=== PATIENT | female | born 1960 | race Caucasian/White ===

== ENCOUNTER 2019-07-10 15:26 | Emergency (ER) | payer MEDICARE, SELFPAY ==
--- NOTE | ~2019-07-10 | XR_ITS ---
EXAMINATION: XR hip RT 2V w AP pelvis DATE: 07/10/2019 15:40 INDICATION: Right hip pain. Fall. TECHNIQUE: An anteroposterior view of the pelvis and 3 views of right hip were obtained. COMPARISON: Pelvis and right hip radiographs 06/18/2019 FINDINGS: There are fractures of right parasymphyseal pubis and superior pubic ramus. There is an old healed subcapital fracture of left femoral neck with fixation with 3 screws. There is a mixed lytic and sclerotic pattern in the intertrochanteric region of proximal right femur without change. There i s mild bilateral hip osteoarthritis. There is levoscoliosis of lumbar spine. IMPRESSION: 1. Acute fractures of right superior pubic ramus and right parasymphyseal pubis. 2. Unchanged mixed lytic and slight pattern in the intertrochanteric region of proximal right femur, likely a subacute or chronic fracture. Reviewed, dictated and finalized at location B. [employer] SAL[employer] IMPRESSION: 1. Acute fractures of right superior pubic ramus and right parasymphyseal pubis . 2. Unchanged mixed lytic and slight pattern in the intertrochanteric region of proximal right femur, likely a subacute or chronic fracture.
[2019-07-10 14:03] VITALS: BP 118/72; PULSE 73; RESP 18; TEMP 36.8; O2SAT 100
[2019-07-10 14:17] LABS: Basophils Absolute Auto 0.1 K/mm3 (0.0-0.1); Basophils Percent Auto 0.8 % (0.2-1.2); Eosinophils Percent Auto 0.3 % (0-4.4); Hematocrit 35.9 % (37.0-47.0); Hemoglobin 10.8 g/dL (12.0-15.0); Immature Granulocyte Absolute 0.01 K/mm3 (0.00-0.031); Immature Granulocyte Percent A 0.2 % (0-0.5); Lymphocytes Absolute Auto 2.53 K/mm3 (0.9-3.2); Lymphocytes Percent Auto 41.8 % (18.3-44.2); Mean Corpuscular HGB Conc 30.1 g/dl (32-36); Mean Corpuscular Volume 76.4 fl (80-100); Mean Platelet Volume 9.8 fl (7.4-10.4); Monocytes Absolute Auto 0.4 K/mm3 (0.1-0.6); Monocytes Percent Auto 6.1 % (2.6-8.5); Neutrophils Absolute Auto 3.1 K/mm3 (1.3-6.7); Neutrophils Percent Auto 50.8 % (45.5-73.1); Platelet Count Result 651 k/mm3 (150-375); White Blood Count 6.1 K/mm3 (4.5-10.0)
[2019-07-10 14:28] LABS: Alanine Aminotransferase 17 U/L (4-35); Albumin Level 3.3 g/dL (3.5-5.1); Alkaline Phosphatase 122 U/L (38-126); Aspartate Amino Transferase 33 U/L (14-36); Bilirubin,Total 0.2 mg/dL (0.2-1.3); Blood Urea Nitrogen 12 mg/dL (7-17); Calcium 8.6 mg/dL (8.4-10.2); Carbon Dioxide 25 mmol/L (22-30); Chloride 102 mmol/L (98-107); Estimated CRCL calculation 61 ml/min; Estimated Glomerular Filt Rate > 60; Glucose 109 mg/dL (65-105); Lipase 145 U/L (23-300); Potassium 3.7 mmol/L (3.4-5.0); Sodium 137 mmol/L (137-145)
--- NOTE | 2019-07-10 15:09 | ED.GENADULT ---
HPI - General Adult General Chief complaint: Extremity Injury, Lower Stated complaint: R hip pain Source: patient Mode of arrival: ambulatory Limitations: no limitations History of Present Illness HPI narrative: The pt is a 58 y/o female who presents to the ED with c/o rt hip pain that began 3 days ago. The pt states that she was getting up to go to the bathroom on Wednesday when she lost balance and fell. She was here a couple of weeks ago with a broken hip and believes she reinjured it during the fall. The pt has been having trouble walking but is not supposed to be bearing weight since her last visit. She has a PMHx of bipolar disorder. complaint: Hip pain Onset (ago): day(s) (3) Location: right (hip) Associated symptoms: denies other symptoms Related Data Home Medications Medication Instructions Recorded Confirmed divalproex [Depakote] 500 mg PO Q12H 06/18/19 06/18/19 escitalopram oxalate [Lexapro] 20 mg PO DAILY 06/18/19 06/18/19 Allergies Allergy/AdvReac Type Severity Reaction Status Date / Time No Known Allergies Allergy Verified 06/18/19 13:02 Review of Systems Review of Systems: All systems reviewed & are unremarkable except as noted in HPI and below Musculoskeletal: Musculoskeletal: Reports arthralgias (rt hip pain) PMFSH Past Medical History Medical History (Updated 07/10/19 @ 16:55 by Jordy Beebe MD) Anxiety Bipolar disorder Borderline personality disorder Cellulitis of left lower leg Chronic back pain Depression ETOH abuse GERD (gastroesophageal reflux disease) Gingival bleeding Hip fracture Microcytic anemia Severe protein-calorie malnutrition Ulcer of left lower leg Vitamin D deficiency Surgical History Surgical History (Updated 06/18/19 @ 15:00 by DOMINGUEZ Rodriguez) H/O breast augmentation Hx of tonsillectomy Family History Family History (Updated 02/28/16 @ 23:19 by DOCTOR UNKNOWN) Mother Family history of diabetes mellitus in first degree relative Family history of malignant neoplasm of brain Sibling Family history of diabetes mellitus in first degree relative Family history of malignant neoplasm Father Family history of malignant neoplasm of bone Other Cerebrovascular accident Diabetes mellitus Family history of alcoholism Family history of mental disorder Hypertension Social History Social History (Updated 06/18/19 @ 15:01 by DOMINGUEZ Rodriguez) Smoking packs per day: 1 Smoking cigarettes per day: 20.0 Years smoked: 40 Smoking pack-years: 40.00 Smoking status: Heavy tobacco smoker Tobacco type: cigarettes Second hand tobacco smoke exposure: Yes Alcohol intake: former Substance use: never Gender identity (if verbalized by the patient): Female Spiritual care concerns: No Agree to blood products: Yes Exam Const: General: no acute distress, alert and ill appearing chronically Nutritional Appearance: thin Orientation/consciousness: oriented x3 Other: frail HENMT: Head: normal to inspection Neck: Neck: normal visual inspection and no lymphadenopathy Chest: Chest palpation & inspection: no tenderness Resp: Effort & Inspection: normal respiratory effort Auscultation: clear to auscultation bilaterally, no rales, no rhonchi and no wheezes Cardio: Jugular venous distension: no JVD Rate: regular rate Rhythm: regular rhythm Heart sounds: no murmurs GI: Inspection: non-distended GI Palp: Yes soft and No tender Back/Spine/Pelvis: Other: tenderness over rt hip and anterior superior iliac spine Skin: General skin exam: normal color Neuro: General: oriented x3 and moves all extremities Speech: normal speech Extrem: General: no edema Psych: Appearance: well kempt Affect: normal affect Course Vital Signs Vital signs: Vital Signs Temperature 36.8 C 07/10/19 14:03 Pulse Rate 73 07/10/19 14:03 Respiratory Rate 18 07/10/19 14:03 Blood Pressure 118/72 07/10/19 14:03 Pulse Oximetry 100
== END 2019-07-10 17:32 | disposition home or self-care (01) ==
PROVIDERS: Emergency Medicine; Emergency Provider Emergency Medicine
DX: S32.511A Fracture of superior rim of right pubis, initial encounter for closed fracture (principal); S32.599A Other specified fracture of unspecified pubis, initial encounter for closed fracture; F31.9 Bipolar disorder, unspecified; F41.9 Anxiety disorder, unspecified; K21.9 Gastro-esophageal reflux disease without esophagitis; D50.9 Iron deficiency anemia, unspecified; E55.9 Vitamin D deficiency, unspecified; W18.49XA Other slipping, tripping and stumbling without falling, initial encounter
CPT/HCPCS: 36415; 73502; 73521; 80053; 83690; 85025; 99283

== ENCOUNTER 2020-07-15 04:49 | Emergency (ER) | payer MEDICARE, SELFPAY ==
[2020-07-15] VITALS (18 sets, daily range): BP systolic 119–144; BP diastolic 73–101; PULSE 68–116; RESP 12–21; TEMP 36.9; O2SAT 93–100
--- NOTE | ~2020-07-15 | XR_ITS ---
EXAMINATION: XR chest 1V portable DATE: 07/15/2020 06:13 INDICATION: Chest pain. TECHNIQUE: A single frontal view of the chest was obtained. COMPARISON: Chest single view 11/28/12, chest CT 11/27/12 FINDINGS: There are mild airspace opacities in right mid and lower lung zones. No pleural effusion or pneumothorax. The heart size is normal. There are bilateral breast implants. There is a small hiatal hernia. IMPRESSION: 1. Mild airspace opacities in right mid and lower lung zones, consistent with atelectasis/scarring ve rsus pneumonia. 2. Small hiatal hernia. Reviewed, dictated and finalized at location A. NESS INTERN IMPRESSION: 1. Mild airspace opacities in right mid and lower lung zones, consistent with a telectasis/scarring versus pneumonia. 2. Small hiatal hernia.
--- NOTE | 2020-07-15 04:55 | ECG_ITS ---
Measurements Intervals [place] Rate: 80 P: 43 NM: 164 QRS: 57 QRSD: 77 T: 65 QT: 408 QTc: 473 Interpretive Statements SINUS RHYTHM POSSIBLE LEFT ATRIAL ENLARGEMENT BASELINE ARTIFACT- II, III, AVF, V2-V3 BORDERLINE ECG Electronically Signed On 07-15-2020 7:02:41 RECEIVING LEAD by Arthur Ching D.O.
[2020-07-15] MEDS: ONDANSETRON INJ 4 MG/2 ML VIAL IV PUSH (05:18)
[2020-07-15] MEDS: KETOROLAC 30 MG/ML VIAL (*BKC) IV PUSH (05:18)
[2020-07-15 05:31] LABS: Basophils Absolute Auto 0.1 K/mm3 (0.0-0.1); Basophils Percent Auto 1.4 % (0.2-1.2); Eosinophils Absolute Auto 0.2 K/mm3 (0-0.3); Eosinophils Percent Auto 2.6 % (0-4.4); Hemoglobin 11.6 g/dL (12.0-15.0); Immature Granulocyte Absolute 0.01 K/mm3 (0.00-0.031); Immature Granulocyte Percent A 0.1 % (0-0.5); Lymphocytes Absolute Auto 1.35 K/mm3 (0.9-3.2); Lymphocytes Percent Auto 19.3 % (18.3-44.2); Mean Corpuscular HGB Conc 30.5 g/dl (32-36); Mean Corpuscular Hemoglobin 23.7 pg (26-34); Mean Corpuscular Volume 77.7 fl (80-100); Monocytes Absolute Auto 0.5 K/mm3 (0.1-0.6); Monocytes Percent Auto 7.7 % (2.6-8.5); Neutrophils Absolute Auto 4.8 K/mm3 (1.3-6.7); Neutrophils Percent Auto 68.9 % (45.5-73.1); Platelet Count Result 978 k/mm3 (150-375); Red Blood Count 4.89 M/mm3 (4.2-5.4); Red Cell Distribution Width 19.8 % (11.5-14.5)
[2020-07-15 05:40] LABS: Anion Gap 11 mmol/L (8-16); Blood Urea Nitrogen 22 mg/dL (7-17); Calcium 9.3 mg/dL (8.4-10.2); Carbon Dioxide 22 mmol/L (22-30); Chloride 106 mmol/L (98-107); Estimated CRCL calculation 33 ml/min; Estimated Glomerular Filt Rate 38; Glucose 106 mg/dL (65-105); Potassium 4.1 mmol/L (3.4-5.0); Sodium 139 mmol/L (137-145)
[2020-07-15 05:41] LABS: INR 0.9; Prothrombin Time 13.2 Seconds (11.1-14.7)
[2020-07-15 05:42] LABS: Partial Thromboplastin Time 33.5 SECONDS (22.3-36.8)
[2020-07-15 05:52] LABS: Troponin I < 0.012 ng/mL (0.000-0.034)
[2020-07-15] MEDS: SODIUM CHLORIDE 0.9% IV 1,000 ML 999 ML IV CONT (06:16)
--- NOTE | 2020-07-15 06:57 | ED.GENADULT ---
HPI - General Adult General Chief complaint: Chest Pain Stated complaint: CP Time Seen by Provider: 07/15/20 05:01 History of Present Illness HPI narrative: Patient is a 59-year-old female who presents ER with multiple complaints. First complaint is that she has had throbbing diffuse headache for the last 3 months. No change in vision or hearing. No alleviating factors. More concerning for her though is over the last couple months she has been having some cough and that over the last 2 days she has developed some chest discomfort with this is been persistent. Denies history of coronary disease. Reports has been having subjective fevers and chills with this. Denies sick contacts. Patient reports right-sided aching chest pain that is nonradiating. Worse with some pressure on her chest. Mild nausea Related Data Home Medications Medication Instructions Recorded Confirmed escitalopram oxalate [Lexapro] 20 mg PO DAILY 06/18/19 06/18/19 buspirone 5 mg PO BID 07/15/20 trazodone 07/15/20 Allergies Allergy/AdvReac Type Severity Reaction Status Date / Time No Known Allergies Allergy Verified 07/15/20 04:54 Review of Systems Review of Systems: All systems reviewed & are unremarkable except as noted in HPI and below Constitutional: Constitutional: Reports chills, Reports fever(s) and Denies weakness ENT: Denies nasal congestion and Denies sore throat Cardiovascular: Cardiovascular: Reports chest pain, Denies rapid heart rate and Denies radiating jaw, neck or arm pain Respiratory: Respiratory: Reports cough, Reports dyspnea and Denies wheezing Gastrointestinal: Gastrointestinal: Denies abdominal pain, Reports nausea and Denies vomiting PMF Past Medical History Medical History (Updated 07/15/20 @ 07:05 by Ross Plaza MD) Anxiety Bipolar disorder Borderline personality disorder Cellulitis of left lower leg Chronic back pain Depression ETOH abuse GERD (gastroesophageal reflux disease) Gingival bleeding Hip fracture Microcytic anemia Severe protein-calorie malnutrition Ulcer of left lower leg Vitamin D deficiency Surgical History Surgical History (Updated 06/18/19 @ 15:00 by DOMINGUEZ Rodriguez) H/O breast augmentation Hx of tonsillectomy Family History Family History (Updated 02/28/16 @ 23:19 by DOCTOR UNKNOWN) Mother Family history of diabetes mellitus in first degree relative Family history of malignant neoplasm of brain Sibling Family history of diabetes mellitus in first degree relative Family history of malignant neoplasm Father Family history of malignant neoplasm of bone Other Cerebrovascular accident Diabetes mellitus Family history of alcoholism Family history of mental disorder Hypertension Social History Social History (Updated 06/18/19 @ 15:01 by DOMINGUEZ Rodriguez) Smoking packs per day: 1 Smoking cigarettes per day: 20.0 Years smoked: 40 Smoking pack-years: 40.00 Smoking status: Heavy tobacco smoker Tobacco type: cigarettes Second hand tobacco smoke exposure: Yes Alcohol intake: former Substance use: never Gender identity (if verbalized by the patient): Female Spiritual care concerns: No Agree to blood products: Yes Exam Narrative: Exam Narrative: GENERAL: Chronically ill-appearing, thin, and in no acute distress. HEAD: Normocephalic, atraumatic. EYES: PERRL and EOMI. CHEST: Clear to auscultation. No respiratory distress. Mild discomfort with palpation of anterior chest wall. HEART: Regular rate and rhythm. Normal peripheral pulses. ABDOMEN: Soft, nontender, nondistended. EXTREMITIES: Normal range of motion. No edema. SKIN: Warm, dry, no rash. NEURO: Alert and oriented x3. Course Course Emergency Course: Patient informed results. Pneumonia versus scarring on chest x-ray. No leukocytosis so we will swab for Covid. Patient will be prescribed azithromycin. Troponin negative and EKG not concerning for ischemia. V
[2020-07-15 18:34] LABS: SARS-CoV-2 RNA PCR Negative
== END 2020-07-15 07:50 | disposition home or self-care (01) ==
PROVIDERS: Emergency Provider Emergency Medicine; PCP Internal Medicine
DX: J18.9 Pneumonia, unspecified organism (principal); Z20.828 Contact with and (suspected) exposure to other viral communicable diseases; F41.9 Anxiety disorder, unspecified; F31.9 Bipolar disorder, unspecified; F60.3 Borderline personality disorder; K21.9 Gastro-esophageal reflux disease without esophagitis; E55.9 Vitamin D deficiency, unspecified; D50.9 Iron deficiency anemia, unspecified; F17.210 Nicotine dependence, cigarettes, uncomplicated; K44.9 Diaphragmatic hernia without obstruction or gangrene; R94.31 Abnormal electrocardiogram [ECG] [EKG]; R07.89 Other chest pain
CPT/HCPCS: 36415; 71045; 80048; 84484; 85025; 85610; 85730; 87635; 93005; 96361; 96374; 96375; 99284; C9803; J1885; J2405; J7030; U0003

== ENCOUNTER 2020-07-27 11:35 | Observation (INO) | payer MEDICARE, SELFPAY ==
--- NOTE | ~2020-07-27 | US_ITS ---
EXAMINATION:US venous doppler LE BI INDICATION:DVT. TECHNIQUE: Multiple grayscale, color flow and Doppler images of the right and left lower extremity de ep venous systems were obtained and reviewed. COMPARISON:03/12/2011 FINDINGS: The common femoral, superficial femoral and popliteal veins demonstrate normal respiratory variation, augmentation and compressibility. Color flow is also seen within the posterior tibial, pe roneal, greater saphenous and profunda veins. IMPRESSION: 1: No lower extremity deep venous thrombosis. Reviewed, dictated and finalized at location A. Y RECORD CLERK
--- NOTE | ~2020-07-27 | CT_ITS ---
EXAMINATION: CTA chest PE protocol DATE: 07/27/2020 15:40 SAXOPHONE TEACHER INDICATION: Shortness of breath and chest pain TECHNIQUE: Computed tomographic angiography (CTA) of the chest was performed with 100 mL Omnipaque-35 0 intravenous contrast. The dose-length product was 138.21 mGy-cm. Maximum intensity projection 3D-re constructions of the aorta and other arteries were constructed by the technologist on a separate work station. COMPARISON: CT dated 11/27/2012. FINDINGS: There is mild ectasia of the ascending thoracic aorta measuring 3.8 cm. There are calcified bilateral breast implants. The study is technically adequate without evidence for pulmonary embolism . Moderate size hiatal hernia. No significant pleural or pericardial effusion. No thoracic lymphadeno mark. There is emphysema. There is a subsolid 11 mm irregular shaped mass in the right upper lobe, i mage 46. There are additional nodular densities near the major fissure posteriorly and the right uppe r lung zone both measuring approximately 8 mm. There is an 8 mm right upper lobe nodule, 37. There is dependent atelectasis. There is a right lower lobe nodule measuring 1.7 cm craniocaudal x1.2 cm axia lly, image 57. No pneumothorax. IMPRESSION: 1. No evidence for pulmonary embolism. 2: Multiple right upper and lower lobe pulmonary nodules which may be infectious/inflammatory or neop lastic. Recommend correlation with pet/CT scan. 3: Emphysema. 4: Moderate sized hiatal hernia. Reviewed, dictated and finalized at location A. PHONE TEACHER IMPRESSION: 1. No evidence for pulmonary embolism. 2: Multiple right upper and lower lobe pulmonary nodules which may be infectiou s/inflammatory or neoplastic. Recommend correlation with pet/CT scan. 3: Emphysema. 4: Moderate sized hiatal hernia.
[2020-07-27 11:46] VITALS: BP 124/77; PULSE 105; RESP 19; TEMP 36.2; O2SAT 98
--- NOTE | 2020-07-27 11:55 | ECG_ITS ---
Measurements Intervals [place] Rate: 98 P: 57 FL: 149 QRS: 55 QRSD: 82 T: 70 QT: 353 QTc: 452 Interpretive Statements SINUS RHYTHM POSSIBLE LEFT ATRIAL ENLARGEMENT POSSIBLE LEFT VENTRICULAR HYPERTROPHY BORDERLINE ECG Electronically Signed On 07-27-2020 14:18:38 WEB SEARCH EVALUATOR by Arthur Ching D.O.
--- NOTE | 2020-07-27 13:43 | ED.GENADULT ---
HPI - General Adult General Chief complaint: Unspecified Stated complaint: recent pneumonia/bad sense of taste Time Seen by Provider: 07/27/20 13:14 Source: patient Mode of arrival: ambulatory Limitations: no limitations History of Present Illness HPI narrative: This patient is a 59 year old female who presents for evaluation a bad tastes in her mouth and shortness of breath. She states she was diagnosed with pneumonia approximately 10 days ago. She was evaluated at that time for cough, right side chest pain and shortness of breath. She states she completed the antibiotics but she still does not feel well. She continues to feel short of breath and she has right side pain with coughing. She also reports that she has bad taste in her mouth. She states her mouth seems dry. She is unable to eat due to nausea. She also has vomiting but her last episode of emesis was yesterday. She was tested for covid on her last visit and it was negative. Related Data Home Medications Medication Instructions Recorded Confirmed escitalopram oxalate [Lexapro] 20 mg PO DAILY 06/18/19 07/27/20 buspirone 10 mg PO BID 07/15/20 07/27/20 trazodone 50 mg PO DAILY 07/15/20 07/27/20 dicyclomine 40 mg PO DAILY 07/27/20 07/27/20 hydroxyzine HCl 25 mg PO TID 07/27/20 07/27/20 pantoprazole 20 mg PO DAILY 07/27/20 07/27/20 Allergies Allergy/AdvReac Type Severity Reaction Status Date / Time No Known Allergies Allergy Verified 07/27/20 11:52 Review of Systems Review of Systems: All systems reviewed & are unremarkable except as noted in HPI and below Constitutional: Constitutional: Reports body ache(s) ENT: Reports odynophagia Cardiovascular: Cardiovascular: Reports chest pain Respiratory: Respiratory: Reports dyspnea Gastrointestinal: Gastrointestinal: Denies abdominal pain PMFSH Past Medical History Medical History (Updated 07/27/20 @ 17:24 by Juana Jonas MD) Anxiety Bipolar disorder Borderline personality disorder Cellulitis of left lower leg Chronic back pain Depression ETOH abuse GERD (gastroesophageal reflux disease) Gingival bleeding Hip fracture Microcytic anemia Severe protein-calorie malnutrition Ulcer of left lower leg Vitamin D deficiency Surgical History Surgical History (Updated 06/18/19 @ 15:00 by DOMINGUEZ Rodriguez) H/O breast augmentation Hx of tonsillectomy Family History Family History (Updated 02/28/16 @ 23:19 by DOCTOR UNKNOWN) Mother Family history of diabetes mellitus in first degree relative Family history of malignant neoplasm of brain Sibling Family history of diabetes mellitus in first degree relative Family history of malignant neoplasm Father Family history of malignant neoplasm of bone Other Cerebrovascular accident Diabetes mellitus Family history of alcoholism Family history of mental disorder Hypertension Social History Social History (Updated 06/18/19 @ 15:01 by DOMINGUEZ Rodriguez) Smoking packs per day: 1 Smoking cigarettes per day: 20.0 Years smoked: 40 Smoking pack-years: 40.00 Smoking status: Heavy tobacco smoker Tobacco type: cigarettes Second hand tobacco smoke exposure: Yes Alcohol intake: former Substance use: never Gender identity (if verbalized by the patient): Female Spiritual care concerns: No Agree to blood products: Yes Exam Narrative: Exam Narrative: GENERAL: thin, cachetic, no acute distress. HEAD: Normocephalic, atraumatic EYES: PERRLA and EOMI, conjunctiva clear without discharge EARS: TM's clear bilaterally without erythema or dullness NOSE: Nares clear, no rhinorrhea or epistaxis NECK: Supple, without lymphadenopathy or mass RESPIRATORY: No respiratory distress, Airway patent, Respirations non-labored, Clear to auscultation without rales, rhonchi or wheeze HEART: Regular rate and rhythm. No murmur heard. Normal peripheral pulses. ABDOMEN: Soft, nontender, nondistended, normal active bowel
[2020-07-27 13:56] LABS: Basophils Absolute Auto 0.1 K/mm3 (0.0-0.1); Basophils Percent Auto 1.3 % (0.2-1.2); Eosinophils Absolute Auto 0.3 K/mm3 (0-0.3); Hematocrit 36.8 % (37.0-47.0); Hemoglobin 10.9 g/dL (12.0-15.0); Immature Granulocyte Absolute 0.02 K/mm3 (0.00-0.031); Immature Granulocyte Percent A 0.4 % (0-0.5); Lymphocytes Absolute Auto 1.22 K/mm3 (0.9-3.2); Lymphocytes Percent Auto 21.9 % (18.3-44.2); Mean Corpuscular HGB Conc 29.6 g/dl (32-36); Mean Corpuscular Volume 80.9 fl (80-100); Mean Platelet Volume 9.3 fl (7.4-10.4); Monocytes Absolute Auto 0.6 K/mm3 (0.1-0.6); Monocytes Percent Auto 9.9 % (2.6-8.5); Neutrophils Absolute Auto 3.4 K/mm3 (1.3-6.7); Neutrophils Percent Auto 61.5 % (45.5-73.1); Platelet Count Result 553 k/mm3 (150-375); Red Blood Count 4.55 M/mm3 (4.2-5.4); Red Cell Distribution Width 17.8 % (11.5-14.5); White Blood Count 5.6 K/mm3 (4.5-10.0)
[2020-07-27 14:03] LABS: Lactic Acid Reflex 0.9 mmol/L (0.7-2.1)
[2020-07-27 14:06] LABS: INR 0.9; Prothrombin Time 13.2 Seconds (11.1-14.7)
[2020-07-27 14:07] LABS: Alanine Aminotransferase 23 U/L (4-35); Albumin Level 3.7 g/dL (3.5-5.1); Alkaline Phosphatase 97 U/L (38-126); Anion Gap 7 mmol/L (8-16); Anisocytosis 1+ (NORMAL); Aspartate Amino Transferase 38 U/L (14-36); Bilirubin,Total 0.3 mg/dL (0.2-1.3); Blood Urea Nitrogen 20 mg/dL (7-17); CRP < 0.5 mg/dL (<1.0); Calcium 8.8 mg/dL (8.4-10.2); Carbon Dioxide 30 mmol/L (22-30); Chloride 99 mmol/L (98-107); Estimated CRCL calculation 31 ml/min; Estimated Glomerular Filt Rate 35; Glucose 103 mg/dL (65-105); Hypochromasia 1+ (NORMAL); Magnesium 2.6 mg/dL (1.6-2.3); Partial Thromboplastin Time 31.7 SECONDS (22.3-36.8); Platelet Estimate Increased (Adequate); Potassium 5.4 mmol/L (3.4-5.0); Sodium 136 mmol/L (137-145)
[2020-07-27 14:09] LABS: D Dimer 0.87 ug/mL (<0.48)
[2020-07-27 15:00] LABS: Alveolar/Arterial O2 Gradient 37.4 mmHg; Base Excess ABG 0.4 mEq/l (+/-2.0); Carboxyhemoglobin 0.9 % THb (0-2.0); Device ROOM AIR; Fractional Inspired Oxygen 21 %; HCO3 ABG 25.4 mEq/l (22.0-26.0); Methemoglobin ABG 0.3 %THb (0-1.5); Modified Allen's Test Pass; Oxygen Content ABG 13.8 %vol (16.0-22.0); Oxygen Saturation ABG 91.2 % (95.0-100.0); Oxyhemoglobin 89.3 % THb (90.0-100.0); PCO2 ABG 42.8 mmHg (35.0-45.0); PO2 ABG 61.1 mmHg (80.0-100.0); PO2 FiO2 Ratio Arterial Blood 2.91 %; Reduced Hemoglobin 9.5 %THb (0-5.0); Site Drawn LEFT RADIAL; pH ABG 7.392 (7.350-7.450)
[2020-07-27 15:16] VITALS: BP 118/86; PULSE 67; RESP 18; O2SAT 99
[2020-07-27] MEDS: SODIUM CHLORIDE 0.9% IV 1,000 ML 999 ML IV CONT (15:19)
[2020-07-27 15:25] LABS: Add Urine Microscopic? YES; Appearance Urine Cloudy (Clear); Bacteria Urine Trace /hpf; Bilirubin Urine Negative (Negative); Blood Urine Negative (Negative); Color Urine Yellow (Yellow); Glucose Urine UA Negative (Negative); Ketones Urine Negative (Negative); Leukocyte Esterase Ur 2+ LEU/UL (Negative); Mucus Urine Rare /lpf; Nitrate Urine Positive (Negative); Protein Urine Negative (Negative); Specific Grav Ur 1.013 (1.001-1.035); Squamous Epithelial Cell Urine Few /hpf (Few); Urobilinogen Urine Negative mg/dL (<2.0); WBC Urine 51-75 /hpf
[2020-07-27 15:26] LABS: Troponin I < 0.012 ng/mL (0.000-0.034)
[2020-07-27] MEDS: ONDANSETRON INJ 4 MG/2 ML VIAL IV PUSH ×2 (15:39→17:42)
[2020-07-27 17:27] VITALS: PULSE 68; RESP 20
[2020-07-27] MEDS: ALBUTEROL SULFATE NEB 2.5 MG/0.5 ML INH 5 MG INHALATION (17:27)
--- NOTE | 2020-07-27 19:25 | ADMGEN ---
This patient, Eboni Alfred, was admitted to Medical Room 341-01. Patient/family oriented to hospital policies and general routines including ID bracelet, bed and alarms, visiting hours, pain management, procedures, bathroom and other care routines, personal items, smoking policy, room service/diet, and visiting hours. Information on how to activate the Rapid Response Team has been discussed. Patient/Family are encouraged to report perceived risks to care and to ask questions if they do not understand what they are told or what they should do.
[2020-07-27] MEDS: FAMOTIDINE 20 MG/2 ML VIAL IV PUSH (20:34)
[2020-07-27 20:51] VITALS: BMI 16.4
[2020-07-27 21:45] VITALS: BP 115/76; PULSE 64; RESP 16; TEMP 36.2; O2SAT 95
--- NOTE | 2020-07-27 22:30 | PM.IMHP ---
H&P: HPI History of Present Illness Date/Time: 07/27/20 22:30 Chief Complaint: Multiple complaints. Narrative: Eboni Alfred is a 59-year-old female smoker with history of GERD, anemia, and psychiatric illness who presented to the emergency department earlier today with multiple complaints including a bad taste in her mouth, dry mouth, right-sided chest discomfort, and mild shortness of breath. She was seen emergency department on 07/15/2020 with a headache and chest pain. Chest x-ray at that time showed findings of possible pneumonia and she was discharged with azithromycin. Her COVID tested come back negative at that time. She completed her antibiotic however has not felt well since about a week before that ER visit. She continues to have a daily headache, sinus congestion, occasional shortness of breath, and right-sided pleuritic chest pain. Her mouth is also very dry and ?raw? which she attributes to poor oral intake from nausea and occasional emesis. She has also had some mild aching in her right lower back. She denies fever, chills, and sweats. No weight loss. She denies sick contacts and exposure to those positive for COVID-19. No cough. No diarrhea. No dysuria, urinary hesitancy, or urgency. Review of Systems Review of Systems: Narrative: Twelve systems were reviewed with pertinent positives and negatives as per HPI. No neck ache or rash. She denies sore throat. No dysphagia or concerns for aspiration. No melena or hematochezia. Except as documented, all other systems were reviewed and are negative. [facility] Past Medical History Medical History (Updated 07/28/20 @ 00:12 by Elizabeth Carson PA-C) Anxiety Bipolar disorder Borderline personality disorder Cellulitis of left lower leg Chronic anemia Chronic back pain Closed left hip fracture Status post ORIF. Closed right hip fracture (~06/2019) Presented with subacute fracture, treated nonsurgically. COPD with emphysema Depression Esophageal stricture Status post dilatation. ETOH abuse Gastroesophageal reflux disease GI bleed (~01/2019) Hospitalized at [facility]. Patient reports upper GI bleed, unsure whether it was due to an ulcer or varices however she denies history of cirrhosis. History of self mutilation Microcytic anemia Tobacco abuse Ulcer of left lower leg Vitamin D deficiency Vitiligo Surgical History Surgical History (Updated 07/27/20 @ 22:54 by Elizabeth Carson PA-C) History of breast augmentation History of hip surgery Left hip fracture ORIF. History of tonsillectomy Family History Family History Mother Family history of diabetes mellitus in first degree relative Family history of malignant neoplasm of brain Diabetes mellitus Hypertension Cerebrovascular accident Sibling Family history of malignant neoplasm Family history of diabetes mellitus in first degree relative Diabetes mellitus Father Family history of malignant neoplasm of bone Other Family history of alcoholism Family history of mental disorder Social History Social History (Updated 07/28/20 @ 00:07 by Elizabeth Carson PA-C) Social History: Surrogate decision maker: Aki Paul, friend. Code status: Full code. Smoking packs per day: 1 Smoking cigarettes per day: 20.0 Years smoked: 40 Smoking pack-years: 40.00 Smoking status: Current every day smoker Tobacco type: e-cigarettes/vaping Second hand tobacco smoke exposure: Yes Alcohol intake: former Alcohol use details: History of alcoholism, has reportedly abstained for several years. Substance use: former Substance use type: crack/cocaine and opiates Last use: 08/02/19 Additional living arrangements comments: She lives in [place] with 2 roommates. Additional occupation/education comments: On disability. Gender identity (if verbalized by the patient): Female Spiritual care c
[2020-07-27 23:47] LABS: Anion Gap 8 mmol/L (8-16); Blood Urea Nitrogen 18 mg/dL (7-17); Calcium 8.3 mg/dL (8.4-10.2); Carbon Dioxide 28 mmol/L (22-30); Chloride 103 mmol/L (98-107); Creatine Kinase 43 U/L (30-135); Estimated CRCL calculation 35 ml/min; Estimated Glomerular Filt Rate 46; Glucose 85 mg/dL (65-105); Potassium 4.6 mmol/L (3.4-5.0); Sodium 139 mmol/L (137-145)
[2020-07-28] MEDS: ACETAMINOPHEN 325 MG TABLET 650 MG PO (00:29)
[2020-07-28] MEDS: traZODone HCL 50 MG TABLET PO ×2 (00:30→21:11)
[2020-07-28] MEDS: busPIRone HCL 10 MG TABLET PO ×3 (00:31→21:11)
[2020-07-28] MEDS: SODIUM CHLORIDE 0.9% IV 1,000 ML 100 ML IV CONT ×3 (00:31→13:30)
--- NOTE | 2020-07-28 03:57 | PC.NURSE ---
Addendum entered by Quita Bond RN 07/28/20 03:58: Report to this RN from Albina BELL Original Note: This patient, Eboni Alfred, was received from [address] [place] [address] on 07/28/20 at 0358. Patient/family oriented to unit policies and routines
--- NOTE | 2020-07-28 03:58 | PC.NURSE ---
This patient, Eboni Alfred, was transferred to [ [id number]] on 07/28/20 at 0358. Personal belongings sent with patient. Report given to [YAA ]. Appropriate documentation sent with patient.
[2020-07-28 04:19] VITALS: BP 121/74; PULSE 62; RESP 18; TEMP 36.8; O2SAT 96
[2020-07-28 07:18] LABS: Basophils Absolute Auto 0.1 K/mm3 (0.0-0.1); Eosinophils Absolute Auto 0.4 K/mm3 (0-0.3); Eosinophils Percent Auto 5.8 % (0-4.4); Hematocrit 33.5 % (37.0-47.0); Hemoglobin 9.9 g/dL (12.0-15.0); Immature Granulocyte Absolute 0.01 K/mm3 (0.00-0.031); Immature Granulocyte Percent A 0.2 % (0-0.5); Lymphocytes Absolute Auto 1.28 K/mm3 (0.9-3.2); Lymphocytes Percent Auto 21.3 % (18.3-44.2); Mean Corpuscular HGB Conc 29.6 g/dl (32-36); Mean Corpuscular Hemoglobin 24.3 pg (26-34); Mean Corpuscular Volume 82.1 fl (80-100); Mean Platelet Volume 9.6 fl (7.4-10.4); Monocytes Absolute Auto 0.6 K/mm3 (0.1-0.6); Monocytes Percent Auto 10.5 % (2.6-8.5); Neutrophils Absolute Auto 3.7 K/mm3 (1.3-6.7); Neutrophils Percent Auto 61.2 % (45.5-73.1); Platelet Count Result 480 k/mm3 (150-375); Red Blood Count 4.08 M/mm3 (4.2-5.4); Red Cell Distribution Width 17.7 % (11.5-14.5)
[2020-07-28 07:20] LABS: Anion Gap 5 mmol/L (8-16); Blood Urea Nitrogen 16 mg/dL (7-17); Carbon Dioxide 29 mmol/L (22-30); Chloride 104 mmol/L (98-107); Estimated CRCL calculation 39 ml/min; Estimated Glomerular Filt Rate 51; Glucose 85 mg/dL (65-105); Potassium 4.9 mmol/L (3.4-5.0); Sodium 138 mmol/L (137-145)
[2020-07-28 07:58] LABS: Anisocytosis 1+ (NORMAL); Hypochromasia 1+ (NORMAL); Poikilocytosis 1+ (NORMAL)
[2020-07-28 08:00] VITALS: BP 123/84; PULSE 74; RESP 16; TEMP 36.9; O2SAT 95
[2020-07-28 08:00] LABS: Ovalocytes 1+ (NORMAL)
[2020-07-28 08:33] LABS: Folic Acid > 20.0 ng/mL (2.76->20)
--- NOTE | 2020-07-28 08:52 | PM.IMPN ---
Progress Note: A&P Assessment and Plan (1) Acute kidney injury: Code(s): N17.9 - Acute kidney failure, unspecified Status: Acute (2) Dehydration: Code(s): E86.0 - Dehydration Status: Acute (3) Abnormal finding on lung imaging: Code(s): R91.8 - Other nonspecific abnormal finding of lung field Status: Acute (4) Chronic anemia: Code(s): D64.9 - Anemia, unspecified Status: Acute (5) COPD with emphysema: Code(s): J43.9 - Emphysema, unspecified Status: Inactive (6) Gastroesophageal reflux disease: Code(s): K21.9 - Gastro-esophageal reflux disease without esophagitis Status: Inactive (7) Psychiatric illness: Code(s): F99 - Mental disorder, not otherwise specified Status: Acute (8) Abnormal urinalysis: Code(s): R82.90 - Unspecified abnormal findings in urine Status: Acute (9) Tobacco abuse: Code(s): Z72.0 - Tobacco use Status: Acute (10) UTI (urinary tract infection): Code(s): N39.0 - Urinary tract infection, site not specified Status: Acute Additional Plan The patient has been admitted to the hospitalist service for IV fluid rehydration as she has an acute kidney injury, presumably due to dehydration. Avoid nephrotoxic agents. Monitor I/O. Will repeat renal function in a.m. and if no improvement she will need a further workup. Her chronic anemia is stable if not improved on review of previous labs. I am certain that this is probably nutritional as she is extremely thin but will check iron studies as well as B12 and folates. Chest CT shows multiple nodules which could be infectious, inflammatory, or neoplastic. Given her recent history and findings of pneumonia on chest x-ray dated 07/15/2020, this may very well be infectious or post-infectious. She was started on ceftriaxone in the emergency department which I will continue for now, pending urine culture. PET-CT is recommended per radiologist. She was negative for COVID on 07/15 however now with strange taste in her mouth, sinus congestion, and continue headache I think we need to repeat that. Smoking cessation is encouraged. Will send urine culture. And also treat for UTI,change antibiotics according to the culture reports. Subjective Date/time seen: 07/28/20 08:52 Interval history: Patient was seen during the morning rounds today. Patient denies any shortness of breath or chest pain. Patient has mild burning urination. No abdominal pain. Mood stable. Review of Systems Review of Systems: All systems reviewed & are unremarkable except as noted in HPI and below ( the history and physical exam) Exam Narrative: Exam Narrative: General: Mildly ill, thin female supine in bed in no distress. Weight: 50.5 kg. BMI: 16.4. HEENT: Normocephalic, atraumatic. PERRL, EOMI. Sclerae anicteric. Mucous membranes are dry. Dentures in place. Oropharynx is mildly erythematous. Neck: Supple. No lymphadenopathy or JVD. Respiratory: Lung sounds are diminished at the bases but are otherwise clear to auscultation. Cardiovascular: Regular rate and rhythm with S1-S2. Gastrointestinal: Abdomen is soft, nontender, and nondistended with positive bowel sounds. Skin: Warm and dry. No rash or lesions on limited exam. Extremities: No cyanosis, clubbing, or edema. Radial and pedal pulses intact. Neurological: Alert. Cranial nerves 2-12 are grossly intact. No gross focal deficits to casual conversation. Psychiatric: Pleasant and cooperative. Appropriate mood and affect. Objective Data Vital Signs Vital Signs: Vital Signs - 24 hr 07/27/20 11:46 07/27/20 15:16 07/27/20 17:27 Temperature 36.2 C L Pulse Rate 105 H 67 68 Respiratory Rate 19 18 20 Blood Pressure 124/77 118/86 Pulse Oximetry 98 99 07/27/20 21:45 07/28/20 04:19 07/28/20 08:00 Temperature 36.2 C L 36.8 C 36.9 C Pulse Rate 64 62 74 Respiratory Rate 16 18 16 Blood Pressure 115/7
[2020-07-28] MEDS: DICYCLOMINE HCL 10 MG CAPSULE 40 MG PO (10:26)
[2020-07-28] MEDS: ESCITALOPRAM OXALATE 10 MG TABLET 20 MG PO (10:27)
[2020-07-28] MEDS: PANTOPRAZOLE SOD SESQUIHYDRATE 20 MG TAB PO (10:27)
[2020-07-28] MEDS: FAMOTIDINE 20 MG/2 ML VIAL IV PUSH ×2 (10:28→21:11)
[2020-07-28] MEDS: hydrOXYzine HCL 25 MG TABLET PO ×3 (10:34→17:02)
[2020-07-28 12:00] VITALS: BP 127/78; PULSE 56; RESP 16; TEMP 37.1; O2SAT 95
[2020-07-28 16:00] VITALS: BP 123/73; PULSE 63; RESP 16; TEMP 37.1; O2SAT 94
[2020-07-28 20:00] VITALS: BP 130/75; PULSE 62; RESP 18; TEMP 37; O2SAT 92
[2020-07-28] MEDS: HEPARIN SODIUM 5,000 UNITS/ML VIAL 5000 UNITS SUB-Q (21:11)
[2020-07-28 22:25] LABS: SARS-CoV-2 RNA PCR Negative
[2020-07-29] VITALS: BP 124/78; PULSE 64; RESP 18; TEMP 37.2; O2SAT 91
[2020-07-29] MEDS: SODIUM CHLORIDE 0.9% IV 1,000 ML 100 ML IV CONT (03:13)
[2020-07-29 06:00] VITALS: BP 116/74; PULSE 72; RESP 18; TEMP 37; O2SAT 96
[2020-07-29 06:54] LABS: Hematocrit 35.7 % (37.0-47.0); Hemoglobin 10.4 g/dL (12.0-15.0); Mean Corpuscular HGB Conc 29.1 g/dl (32-36); Mean Corpuscular Hemoglobin 23.7 pg (26-34); Mean Corpuscular Volume 81.3 fl (80-100); Platelet Count Result 412 k/mm3 (150-375); Red Blood Count 4.39 M/mm3 (4.2-5.4); Red Cell Distribution Width 17.4 % (11.5-14.5)
[2020-07-29 07:06] LABS: Potassium 4.6 mmol/L (3.4-5.0)
[2020-07-29 07:08] LABS: Alanine Aminotransferase 18 U/L (4-35); Albumin Level 3.3 g/dL (3.5-5.1); Alkaline Phosphatase 81 U/L (38-126); Anion Gap 6 mmol/L (8-16); Aspartate Amino Transferase 32 U/L (14-36); Bilirubin,Total 0.3 mg/dL (0.2-1.3); Blood Urea Nitrogen 14 mg/dL (7-17); Calcium 8.3 mg/dL (8.4-10.2); Carbon Dioxide 29 mmol/L (22-30); Chloride 105 mmol/L (98-107); Estimated CRCL calculation 42 ml/min; Estimated Glomerular Filt Rate 57; Glucose 94 mg/dL (65-105); Sodium 140 mmol/L (137-145)
[2020-07-29] MEDS: DICYCLOMINE HCL 10 MG CAPSULE 40 MG PO (09:10)
[2020-07-29] MEDS: PANTOPRAZOLE SOD SESQUIHYDRATE 20 MG TAB PO (09:10)
[2020-07-29] MEDS: hydrOXYzine HCL 25 MG TABLET PO (09:10)
[2020-07-29] MEDS: ESCITALOPRAM OXALATE 10 MG TABLET 20 MG PO (09:10)
[2020-07-29] MEDS: HEPARIN SODIUM 5,000 UNITS/ML VIAL 5000 UNITS SUB-Q (09:11)
[2020-07-29] MEDS: busPIRone HCL 10 MG TABLET PO (09:12)
[2020-07-29] MEDS: FAMOTIDINE 20 MG/2 ML VIAL IV PUSH (09:12)
--- NOTE | 2020-07-29 09:31 | PM.DS ---
DS: Admitting Diagnosis Admitting Diagnosis Admitting Diagnosis: 1. UTI 2. Acute kidney injury 3. History of COPD DS: Discharge Diagnosis Discharge Diagnosis (1) Acute kidney injury: Code(s): N17.9 - Acute kidney failure, unspecified Status: Acute (2) Dehydration: Code(s): E86.0 - Dehydration Status: Acute (3) Abnormal finding on lung imaging: Code(s): R91.8 - Other nonspecific abnormal finding of lung field Status: Acute (4) Chronic anemia: Code(s): D64.9 - Anemia, unspecified Status: Acute (5) COPD with emphysema: Code(s): J43.9 - Emphysema, unspecified Status: Inactive (6) Gastroesophageal reflux disease: Code(s): K21.9 - Gastro-esophageal reflux disease without esophagitis Status: Inactive (7) Psychiatric illness: Code(s): F99 - Mental disorder, not otherwise specified Status: Acute (8) Abnormal urinalysis: Code(s): R82.90 - Unspecified abnormal findings in urine Status: Acute (9) Tobacco abuse: Code(s): Z72.0 - Tobacco use Status: Acute (10) UTI (urinary tract infection): Code(s): N39.0 - Urinary tract infection, site not specified Status: Acute DS: Summary Hospital Course Hospital Course: Narrative: Eboni Alfred is a 59-year-old female smoker with history of GERD, anemia, and psychiatric illness who presented to the emergency department earlier today with multiple complaints including a bad taste in her mouth, dry mouth, right-sided chest discomfort, and mild shortness of breath. She was seen emergency department on 07/15/2020 with a headache and chest pain. Chest x-ray at that time showed findings of possible pneumonia and she was discharged with azithromycin. Her COVID tested come back negative at that time. She completed her antibiotic however has not felt well since about a week before that ER visit. She continues to have a daily headache, sinus congestion, occasional shortness of breath, and right-sided pleuritic chest pain. Her mouth is also very dry and ?raw? which she attributes to poor oral intake from nausea and occasional emesis. She has also had some mild aching in her right lower back. She denies fever, chills, and sweats. No weight loss. She denies sick contacts and exposure to those positive for COVID-19. No cough. No diarrhea. No dysuria, urinary hesitancy, or urgency. Patient was admitted in the hospital IV antibiotics was given. Urine and blood cultures were done. Patient stayed afebrile. No new in the hospital. Today patient is feeling better. Patient is discharged home stable condition. Activity as tolerated. Diet as tolerated. Patient urine culture is not back. Will discharge the patient on Cipro and monitor the culture reports an outpatient. Time spent discussing smoking cessation with patient: 3 to 10 minutes Status at Discharge Cognitive/behavioral status at discharge: Stable Functional status at discharge: independent ambulation Overall status at discharge: patient is back to baseline Time Spent with Patient Time attestation: Total time spent providing and/or coordinating discharge services: Time spent: Less than 30 minutes Specific discharge activities: As tolerated Exam Narrative: Exam Narrative: General: Mildly ill, thin female supine in bed in no distress. Weight: 50.5 kg. BMI: 16.4. HEENT: Normocephalic, atraumatic. PERRL, EOMI. Sclerae anicteric. Mucous membranes are dry. Dentures in place. Oropharynx is mildly erythematous. Neck: Supple. No lymphadenopathy or JVD. Respiratory: Lung sounds are diminished at the bases but are otherwise clear to auscultation. Cardiovascular: Regular rate and rhythm with S1-S2. Gastrointestinal: Abdomen is soft, nontender, and nondistended with positive bowel sounds. Skin: Warm and dry. No rash or lesions on limited exam. Extremities: No cyanosis, clubbing, or edema. Radial and pedal pulses intact.
[2020-07-29 10:27] LABS: Iron 29 ug/dL (37-170)
[2020-07-29 10:33] LABS: Percent Iron Saturation 8 % (20-50)
== END 2020-07-29 12:15 | disposition home or self-care (01) ==
LOC: ANHED 17:24 → ANH3MED 17:57 → ANH3MEDSUR 07-28 04:27
PROVIDERS: Physician Assistant; Admitting Provider Internal Medicine; Emergency Provider General Practice; PCP Internal Medicine; Visit Provider Internal Medicine
DX: N17.9 Acute kidney failure, unspecified (principal); E86.0 Dehydration; N39.0 Urinary tract infection, site not specified; R91.8 Other nonspecific abnormal finding of lung field; D64.9 Anemia, unspecified; J43.9 Emphysema, unspecified; R11.2 Nausea with vomiting, unspecified; R06.02 Shortness of breath; F31.9 Bipolar disorder, unspecified; F41.9 Anxiety disorder, unspecified; K21.9 Gastro-esophageal reflux disease without esophagitis; E55.9 Vitamin D deficiency, unspecified; E43 Unspecified severe protein-calorie malnutrition; Z68.1 Body mass index [BMI] 19.9 or less, adult; F17.210 Nicotine dependence, cigarettes, uncomplicated; Z23 Encounter for immunization; Z20.828 Contact with and (suspected) exposure to other viral communicable diseases
CPT/HCPCS: 36415; 36600; 71275; 80048; 80053; 81001; 82375; 82550; 82607; 82728; 82746; 82805; 83050; 83540; 83550; 83605; 83735; 84484; 85025; 85027; 85380; 85610; 85730; 86140; 87077; 87081; 87086; 87088; 87186; 87635; 87804; 87880; 90471; 90653; 93005; 93970; 94640; 96361; 96365; 96366; 96367; 96372; 96375; 96376; 99285; A9270; C9803; G0008; G0378; J0131; J0696; J1644; J2405; J7030; Q9967; U0003

== ENCOUNTER 2020-08-05 20:11 | Emergency (ER) | payer MEDICARE, SELFPAY ==
[2020-08-05] VITALS (11 sets, daily range): BP systolic 136–174; BP diastolic 98–110; PULSE 68–108; RESP 14–16; TEMP 36.2; O2SAT 94–100
--- NOTE | ~2020-08-05 | CT_ITS ---
EXAMINATION: CT brain wo con EXAM DATE: 08/05/2020 21:47 INDICATION: Generalized headache. TECHNIQUE: Spiral CT of the head was performed without contrast. Axial, coronal and sagittal images were reviewed. The dose-length product (DLP) for this examination was 605.33 mGy-cm. The exposure w as tailored according to patient size, and iterative reconstruction (ASIR) was used as additional dos e reduction technique. There is no prior study for comparison. FINDINGS: There is no acute intraparenchymal hemorrhage. No evidence of intraparenchymal brain mass lesion. No evidence of acute infarction. There is no mass effect or midline shift. The ventricles are normal in size. There are no extra-axial collections. There are no acute calvarial fractures. T he orbits are unremarkable. Soft tissue is unremarkable. The visualized sinuses and mastoid air justo ls are well aerated. IMPRESSION: 1. No acute intracranial findings. Reviewed, dictated and finalized at location A. ERPRINTER
--- NOTE | 2020-08-05 20:45 | PC.NURSE ---
patient brought back to ED room 3 with c/o headache and abdomen pain. see initial assessment. patient states she has been seen at this ED now 3 times in the last 30 days with similar symptoms. dx with pneumonia recently, dx with new lung nodules and new headaches. chart reviewed. patient has hx of IV drug use but states she has been clean for 1 year . also has hx of self harm with cutting. has scars on both arms. this RN at bedside. attempted to start peripheral IV access x 3 without success.
[2020-08-05 21:14] LABS: Basophils Percent Auto 0.8 % (0.2-1.2); Eosinophils Absolute Auto 0.1 K/mm3 (0-0.3); Eosinophils Percent Auto 1.4 % (0-4.4); Hematocrit 34.6 % (37.0-47.0); Hemoglobin 11.3 g/dL (12.0-15.0); Immature Granulocyte Absolute 0.02 K/mm3 (0.00-0.031); Immature Granulocyte Percent A 0.4 % (0-0.5); Lymphocytes Absolute Auto 0.88 K/mm3 (0.9-3.2); Mean Corpuscular HGB Conc 32.7 g/dl (32-36); Mean Corpuscular Hemoglobin 24.1 pg (26-34); Mean Corpuscular Volume 73.9 fl (80-100); Monocytes Absolute Auto 0.4 K/mm3 (0.1-0.6); Monocytes Percent Auto 8.5 % (2.6-8.5); Neutrophils Absolute Auto 3.7 K/mm3 (1.3-6.7); Neutrophils Percent Auto 71.9 % (45.5-73.1); Platelet Count Result 523 k/mm3 (150-375); Red Blood Count 4.68 M/mm3 (4.2-5.4); Red Cell Distribution Width 15.5 % (11.5-14.5); White Blood Count 5.2 K/mm3 (4.5-10.0)
[2020-08-05 21:26] LABS: Alanine Aminotransferase 26 U/L (4-35); Albumin Level 4.6 g/dL (3.5-5.1); Alkaline Phosphatase 107 U/L (38-126); Anion Gap 14 mmol/L (8-16); Aspartate Amino Transferase 58 U/L (14-36); Bilirubin,Total 0.5 mg/dL (0.2-1.3); Blood Urea Nitrogen 12 mg/dL (7-17); Calcium 10.2 mg/dL (8.4-10.2); Carbon Dioxide 26 mmol/L (22-30); Chloride 84 mmol/L (98-107); Estimated CRCL calculation 42 ml/min; Estimated Glomerular Filt Rate 51; Glucose 126 mg/dL (65-105); Lipase 98 U/L (23-300); Sodium 124 mmol/L (137-145)
--- NOTE | 2020-08-05 21:36 | ED.HA ---
HPI - Headache General Chief Complaint: Headache Stated Complaint: headache Time Seen by Provider: 08/05/20 21:15 Source: patient Mode of arrival: ambulatory Limitations: no limitations History of Present Illness HPI Narrative: Patient 59-year-old female complaining of headache, frontal, 8 out of 10, throbbing started approximately 1 month ago. Patient states that she was seen here 3 times this past month for the same complaint, was just here last week for the same thing. Patient also states that she has seen her primary care physician and was told to take Motrin/ibuprofen. Patient denies any speech or visual disturbance, weakness, numbness or unsteady gait. Patient denies any neck stiffness, fever or rash. Related Data Home Medications Medication Instructions Recorded Confirmed hydroxyzine HCl 25 mg PO TID 07/27/20 07/27/20 Allergies Allergy/AdvReac Type Severity Reaction Status Date / Time No Known Allergies Allergy Verified 08/05/20 22:15 Review of Systems Review of Systems: All systems reviewed & are unremarkable except as noted in HPI and below Constitutional: Constitutional: Denies body ache(s), Denies chills, Denies excessive sweating, Denies fatigue, Denies fever(s), Denies headache(s), Denies lethargy, Denies malaise, Denies weakness and Denies weight loss Eyes: Eyes: Denies blurry vision, Denies change in vision and Denies loss of vision ENT: Denies dizziness, Denies ear discharge, Denies headache(s), Denies lip swelling, Denies epistaxis, Denies nasal congestion, Denies neck pain, Denies throat swelling and Denies tongue swelling Cardiovascular: Cardiovascular: Denies chest pain, Denies chest pain at rest, Denies chest pain with activity, Denies diaphoresis, Denies rapid heart rate, Denies edema, Denies irregular heart rhythm, Denies lightheadedness, Denies palpitations, Denies dyspnea and Denies dyspnea on exertion Respiratory: Respiratory: Denies chest congestion, Denies cough, Denies hemoptysis, Denies dyspnea and Denies dyspnea on exertion Gastrointestinal: Gastrointestinal: Denies abdominal pain, Denies melena, Denies hematochezia, Denies diarrhea, Denies nausea, Denies vomiting and Denies hematemesis Musculoskeletal: Musculoskeletal: Denies abnormal gait, Denies deformity, Denies joint swelling, Denies limited range of motion, Denies neck pain and Denies numbness Neurologic: Denies Abnormal speech present, Denies abnormal gait, Denies confusion, Denies dizziness, Denies focal weakness, Denies loss of vision, Denies numbness, Denies Other visual disturbances, Denies Sensory deficit (Neuro) and Denies weakness Psychiatric: Psychiatric: Denies confusion, Denies depression, Denies auditory hallucinations, Denies homicidal ideation and Denies suicidal ideation Endocrine: Endocrine: Denies cold intolerance, Denies excessive sweating, Denies fatigue, Denies heat intolerance and Denies palpitations Hematologic/Lymphatic: Hematologic/Lymphatic: Denies easy bleeding and Denies easy bruising Allergic/Immunologic: Allergic/Immunologic: Denies lip swelling, Denies throat swelling and Denies tongue swelling [facility] Past Medical History Medical History (Updated 08/05/20 @ 22:21 by Kory Spicer MD) Anxiety Bipolar disorder Borderline personality disorder Cellulitis of left lower leg Chronic anemia Chronic back pain Closed left hip fracture Status post ORIF. Closed right hip fracture (~06/2019) Presented with subacute fracture, treated nonsurgically. COPD with emphysema Depression Esophageal stricture Status post dilatation. ETOH abuse Gastroesophageal reflux disease GI bleed (~01/2019) Hospitalized at [facility]. Patient reports upper GI bleed, unsure whether it was due to an ulcer or varices however she denies history of cirrhosis. History of self mutilation Microcytic anemia Tobacco abuse Ulcer of left lower leg Vitamin D deficiency Vitiligo Surgical History Surgical Hi
[2020-08-05] MEDS: LABETALOL HCL INJ 100 MG/20 ML VIAL 20 MG IV PUSH (21:53)
[2020-08-05] MEDS: diphenhydrAMINE HCl INJ 50 MG/ML VIAL 25 MG IV PUSH (22:06)
[2020-08-05] MEDS: METOCLOPRAMIDE HCL INJ 10 MG/2 ML VIAL IV PUSH (22:07)
--- NOTE | 2020-08-05 22:09 | PC.NURSE ---
patient medicated as ordered. on cardiac nurse now. c/o headache still. will continue to monitor BP. patient updated on current treatment plan and expected wait time. denies needs. call light in hand.
--- NOTE | 2020-08-05 22:41 | PC.NURSE ---
patient's vitals printed from monitor system. not crossing into chart.
--- NOTE | 2020-08-05 23:05 | PC.NURSE ---
resting on stretcher. alert. oriented. waiting for further orders vs disposition from provider. CT normal. has call light in reach.
== END 2020-08-05 23:40 | disposition home or self-care (01) ==
PROVIDERS: Emergency Provider Emergency Medicine; PCP Internal Medicine
DX: I16.0 Hypertensive urgency (principal); R51.9 Headache, unspecified; E87.1 Hypo-osmolality and hyponatremia; F17.200 Nicotine dependence, unspecified, uncomplicated; J44.9 Chronic obstructive pulmonary disease, unspecified; K21.9 Gastro-esophageal reflux disease without esophagitis
CPT/HCPCS: 36415; 70450; 80053; 83690; 85025; 96374; 96375; 99284; J1200; J2765

== ENCOUNTER 2020-09-05 11:53 | Outpatient (CLI) | payer MEDICARE, SELFPAY ==
--- NOTE | ~2020-09-05 | PE_ITS ---
EXAMINATION: PET skull to mid thigh DATE: 09/05/2020 13:38 INDICATION: Pulmonary nodules. TECHNIQUE: Blood glucose level was 93 mg/dL. 10.678 mCi of 18-fluorodeoxyglucose (18-FDG) was adminis tered i.v. Low dose computed tomography (CT) images were acquired from the base of the brain to the p roximal thighs for attenuation correction and anatomic localization. Automated exposure control was e mployed. Dose-length product (DLP) was 218 mGy-cm. Positron emission tomography (PET) images were acq uired in the same distribution. COMPARISON: Chest CT 07/27/2020 FINDINGS: Head/neck: There are no pathologically enlarged lymph nodes. Chest: There is mild scarring at the lung apices. There is mild emphysema. There are a few nodules in the lungs measuring up to 5 mm in superior segment right lower lobe without increased activity. No p leural effusion. The heart size is normal. No pericardial effusion. There are bilateral breast implan ts. There is a moderate-sized sliding hiatal hernia. Abdomen/pelvis/proximal thighs: The liver is normal. The gallbladder is distended, likely secondary t o fasting. The spleen, pancreas, adrenal glands, and kidneys are normal. There are no dilated loops o f bowel. There are no pathologically enlarged lymph nodes. There is no free intraperitoneal fluid. Th ere is internal fixation of proximal left femur with 3 screws. IMPRESSION: 1. Pulmonary nodules measuring up to 5 mm without increased activity with interval improvement, likel y benign. Reviewed, dictated and finalized at location A. TIC WORKER IMPRESSION: 1. Pulmonary nodules measuring up to 5 mm without increased activity with inter ethel improvement, likely benign.
[2020-09-05 12:20] LABS: Glucose Point of Care 93 (65-105)
== END 2020-09-05 11:54 | disposition home or self-care (01) ==
PROVIDERS: PCP Internal Medicine; Visit Provider Internal Medicine
DX: R91.8 Other nonspecific abnormal finding of lung field (principal)
CPT/HCPCS: 78815; 82948; A9552

== ENCOUNTER 2020-09-07 11:11 | Inpatient (IN) | payer MEDICARE, SELFPAY ==
[2020-09-07] VITALS (68 sets, daily range): BP systolic 104–156; BP diastolic 48–97; PULSE 63–88; RESP 12–21; TEMP 36.3–36.4; O2SAT 92–100; BMI 17.7
--- NOTE | ~2020-09-07 | US_ITS ---
EXAMINATION: US renal BI DATE: 09/08/2020 11:22 INDICATION: Hyperkalemia. TECHNIQUE: Multiple ultrasound grayscale images of the kidneys were obtained. COMPARISON: PET/CT 09/05/20 FINDINGS: The right kidney measures 8.8 x 4.1 x 4.4 cm. The left kidney measures 7.9 x 4.3 x 4.4 cm. The kidney s demonstrate normal parenchymal echogenicity. There is no hydronephrosis. The bladder is normal. IMPRESSION: 1. Mild atrophy of the kidneys. No hydronephrosis. Reviewed, dictated and finalized at location A. ETOLOGY TEACHER
--- NOTE | 2020-09-07 11:35 | ED.RECABL ---
HPI - Recheck/Abnormal Lab/Rx General Chief Complaint: Recheck/Abnormal Lab/Rx Stated Complaint: elevated k+ Time Seen by Provider: 09/07/20 11:35 History of Present Illness HPI narrative: 60 yo female w/ multiple chronic medical problems presents to the ED for abnormal labs. She had outpatient labs drawn yesterday and was called today and told that her potassium was high and she needs to go to the ED. She reports that she has not been feeling great. She does endorse occasional headaches, but no other specific symptoms. She reports no urinary difficulty. Related Data Home Medications Medication Instructions Recorded Confirmed mirtazapine [Remeron] 30 mg PO DAILY 09/07/20 Allergies Allergy/AdvReac Type Severity Reaction Status Date / Time bacitracin Allergy Rash Verified 09/07/20 11:26 [From Neosporin ([id number])] Bleach (Sodium Hypochlorite) Allergy Rash Verified 09/07/20 11:26 latex Allergy Rash Verified 09/07/20 11:26 neomycin Allergy Rash Verified 09/07/20 11:26 [From Neosporin ([id number])] polymyxin B Allergy Rash Verified 09/07/20 11:26 [From Neosporin ([id number])] Review of Systems Review of Systems: All systems reviewed & are unremarkable except as noted in HPI and below Constitutional: Constitutional: Denies chills, Denies fever(s) and Denies weakness Eyes: Eyes: Reports no additional eye complaints Cardiovascular: Cardiovascular: Denies chest pain Respiratory: Respiratory: Denies dyspnea Gastrointestinal: Gastrointestinal: Denies abdominal pain, Denies nausea and Denies vomiting Genitourinary: Genitourinary: Denies hematuria, Denies nocturia and Denies dysuria [facility] Past Medical History Medical History (Updated 09/07/20 @ 17:22 by Jordy Beebe MD) Anxiety Bipolar disorder Borderline personality disorder Cellulitis of left lower leg Chronic anemia Chronic back pain Closed left hip fracture Status post ORIF. Closed right hip fracture (~06/2019) Presented with subacute fracture, treated nonsurgically. COPD with emphysema Depression Esophageal stricture Status post dilatation. ETOH abuse Gastroesophageal reflux disease GI bleed (~01/2019) Hospitalized at [facility]. Patient reports upper GI bleed, unsure whether it was due to an ulcer or varices however she denies history of cirrhosis. History of self mutilation Microcytic anemia Tobacco abuse Ulcer of left lower leg Vitamin D deficiency Vitiligo Surgical History Surgical History (Updated 07/27/20 @ 22:54 by Elizabeth Carson PA-C) History of breast augmentation History of hip surgery Left hip fracture ORIF. History of tonsillectomy Family History Family History Mother Family history of diabetes mellitus in first degree relative Family history of malignant neoplasm of brain Diabetes mellitus Hypertension Cerebrovascular accident Sibling Family history of malignant neoplasm Family history of diabetes mellitus in first degree relative Diabetes mellitus Father Family history of malignant neoplasm of bone Other Family history of alcoholism Family history of mental disorder Social History Social History (Updated 07/28/20 @ 00:07 by Elizabeth Carson PA-C) Social History: Surrogate decision maker: Aki Paul, friend. Code status: Full code. Smoking packs per day: 1 Smoking cigarettes per day: 20.0 Years smoked: 40 Smoking pack-years: 40.00 Smoking status: Current every day smoker Tobacco type: e-cigarettes/vaping Second hand tobacco smoke exposure: Yes Alcohol intake: former Substance use: former Substance use type: crack/cocaine and opiates Last use: 08/02/19 Additional living arrangements comments: She lives in [place] with 2 roommates. Additional occupation/education comments: On disability. Gender identity (if verbalized
--- NOTE | 2020-09-07 11:39 | PC.NURSE ---
Dr. Beebe at bedside for pt assessment. Pt placed on NIBP, Spo2, and cardiac monitors.
[2020-09-07 12:04] LABS: Basophils Absolute Auto 0.1 K/mm3 (0.0-0.1); Basophils Percent Auto 1.7 % (0.2-1.2); Eosinophils Absolute Auto 0.2 K/mm3 (0-0.3); Hematocrit 33.6 % (37.0-47.0); Hemoglobin 10.2 g/dL (12.0-15.0); Immature Granulocyte Absolute 0.01 K/mm3 (0.00-0.031); Immature Granulocyte Percent A 0.2 % (0-0.5); Lymphocytes Absolute Auto 1.52 K/mm3 (0.9-3.2); Lymphocytes Percent Auto 35.8 % (18.3-44.2); Mean Corpuscular HGB Conc 30.4 g/dl (32-36); Mean Corpuscular Hemoglobin 23.9 pg (26-34); Mean Corpuscular Volume 78.9 fl (80-100); Mean Platelet Volume 9.7 fl (7.4-10.4); Monocytes Absolute Auto 0.6 K/mm3 (0.1-0.6); Monocytes Percent Auto 13.4 % (2.6-8.5); Neutrophils Absolute Auto 1.9 K/mm3 (1.3-6.7); Neutrophils Percent Auto 44.9 % (45.5-73.1); Platelet Count Result 611 k/mm3 (150-375); Red Blood Count 4.26 M/mm3 (4.2-5.4); Red Cell Distribution Width 17.2 % (11.5-14.5); White Blood Count 4.2 K/mm3 (4.5-10.0)
[2020-09-07 12:21] LABS: Anion Gap 5 mmol/L (8-16); Blood Urea Nitrogen 26 mg/dL (7-17); Calcium 8.2 mg/dL (8.4-10.2); Carbon Dioxide 27 mmol/L (22-30); Chloride 106 mmol/L (98-107); Estimated CRCL calculation 41 ml/min; Estimated Glomerular Filt Rate 50; Glucose 108 mg/dL (65-105); Magnesium 2.4 mg/dL (1.6-2.3); Potassium 5.8 mmol/L (3.4-5.0); Sodium 138 mmol/L (137-145)
--- NOTE | 2020-09-07 12:38 | ECG_ITS ---
Measurements Intervals [place] Rate: 71 P: 42 [place]: 166 QRS: 31 QRSD: 80 T: 40 QT: 409 QTc: 447 Interpretive Statements SINUS RHYTHM POSSIBLE LEFT ATRIAL ENLARGEMENT CANNOT RULE OUT SEPTAL INFARCT, AGE INDETERMINATE BASELINE ARTIFACT- I, II, III, AVR, AVL, AVF ABNORMAL ECG Electronically Signed On 09-07-2020 14:33:15 PSYCHOLOGY DEPARTMENT CHAIR by Arthur Ching D.O.
[2020-09-07 12:40] LABS: Add Urine Microscopic? YES; Appearance Urine Clear (Clear); Bilirubin Urine Negative (Negative); Blood Urine Negative (Negative); Color Urine Yellow (Yellow); Glucose Urine UA Negative (Negative); Ketones Urine Negative (Negative); Leukocyte Esterase Ur 1+ LEU/UL (Negative); Mucus Urine Rare /lpf; Nitrate Urine Positive (Negative); Protein Urine Negative (Negative); RBC Urine 0-2 /hpf (0-2); Specific Grav Ur 1.021 (1.001-1.035); Squamous Epithelial Cell Urine Rare /hpf (Few); Urobilinogen Urine Negative mg/dL (<2.0); WBC Urine 21-30 /hpf
[2020-09-07] MEDS: SODIUM CHLORIDE 0.9% IV 1,000 ML 999 ML IV CONT ×2 (12:50→14:29)
[2020-09-07] MEDS: SODIUM POLYSTYRENE SULFONONATE 15 GM/60 ML BTL PO (12:56)
[2020-09-07] MEDS: NITROFURANTOIN MONOHYD MACROCR 100 MG CAP PO (15:32)
[2020-09-07 15:49] LABS: Anion Gap 2 mmol/L (8-16); Blood Urea Nitrogen 23 mg/dL (7-17); Calcium 7.9 mg/dL (8.4-10.2); Carbon Dioxide 27 mmol/L (22-30); Chloride 110 mmol/L (98-107); Estimated CRCL calculation 45 ml/min; Estimated Glomerular Filt Rate 56; Glucose 89 mg/dL (65-105); Potassium 5.9 mmol/L (3.4-5.0); Sodium 139 mmol/L (137-145)
[2020-09-07] MEDS: ALBUTEROL SULFATE NEB 2.5 MG/0.5 ML INH 10 MG INHALATION (16:33)
--- NOTE | 2020-09-07 16:33 | PC.NURSE ---
RT at bedside for treatment.
[2020-09-07] MEDS: DEXTROSE 50% 25 GM/50 ML SYRINGE IV PUSH ×2 (16:57→18:21)
--- NOTE | 2020-09-07 16:57 | PC.NURSE ---
FSBS 101.
[2020-09-07] MEDS: INSULIN HUMAN REGULAR (*BKC) 100 UNITS/ML 10 UNITS IV PUSH (17:00)
[2020-09-07] MEDS: CALCIUM GLUCONATE 1,000 MG/10 ML VIAL 1000 MG IV PUSH (17:02)
[2020-09-07 17:12] LABS: Glucose Point of Care 101 (65-105)
--- NOTE | 2020-09-07 18:16 | PC.NURSE ---
FSBS [address]. Dr. Beebe made aware.
[2020-09-07 18:18] LABS: Glucose Point of Care 54 (65-105)
--- NOTE | 2020-09-07 21:00 | PM.IMHP ---
H&P: HPI History of Present Illness Date/Time: 09/07/20 21:00 Chief Complaint: High potassium level. Narrative: This is a 60-year-old female smoker with history of GERD, peptic ulcers, anemia, and psychiatric illness who presented to the emergency department earlier today at the direction of her primary care provider for further treatment and evaluation of a high potassium level. She had routine labs drawn yesterday and received a call today that her potassium level was high and that she needed to come in for evaluation. She has had episodes of hyperkalemia in the past without clear etiology and with further questioning she denies taking potassium supplements however endorses eating a lot of fruits each day including a couple of bananas. At the time my evaluation she really has no complaints and she has not been feeling particularly bad however does mention having some nausea and lightheadedness last night. In the emergency department she was given Kayexalate and IV fluids however repeat potassium level was higher, prompting admission. She denies vomiting, paresthesias, palpitations, muscle weakness, chest pain, and shortness of breath. She is on no medications that can cause hyperkalemia and denies supplement use. Review of Systems Review of Systems: Narrative: Twelve systems were reviewed with pertinent positives and negatives as per HPI. No fever, chills, or sweats. She denies recent cold and flu symptoms. She did have pneumonia in July 2020. Denies exposure to COVID-19. No diarrhea or constipation. She has not noticed a change in urine output. Except as documented, all other systems were reviewed and are negative. [facility] Past Medical History Medical History (Updated 09/07/20 @ 23:12 by Elizabeth Carson PA-C) Anxiety Bipolar disorder Borderline personality disorder Cellulitis of left lower leg (~06/2019) Chronic anemia Chronic back pain Closed left hip fracture Status post ORIF. Closed right hip fracture (~06/2019) Presented with subacute fracture, treated nonsurgically. COPD with emphysema Depression Esophageal stricture Status post dilatation. Gastroesophageal reflux disease GI bleed (~01/2019) Hospitalized at [facility]. Patient reports upper GI bleed, unsure whether it was due to an ulcer or varices however she denies history of cirrhosis. 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 History of self mutilation Microcytic anemia Tobacco abuse Vitamin D deficiency Vitiligo Surgical History Surgical History (Updated 07/27/20 @ 22:54 by Elizabeth Carson PA-C) History of breast augmentation History of hip surgery Left hip fracture ORIF. History of tonsillectomy Family History Family History Mother Family history of diabetes mellitus in first degree relative Family history of malignant neoplasm of brain Diabetes mellitus Hypertension Cerebrovascular accident Sibling Family history of malignant neoplasm Family history of diabetes mellitus in first degree relative Diabetes mellitus Father Family history of malignant neoplasm of bone Other Family history of alcoholism Family history of mental disorder Social History Social History (Updated 09/07/20 @ 23:09 by Elizabeth Carson PA-C) Social History: Surrogate decision maker: Aki Paul, friend. Code status: Full code. Smoking packs per day: 1 Smoking cigarettes per day: 20.0 Years smoked: 40 Smoking pack-years: 40.00 Smoking status: Current every day smoker Tobacco type: e-cigarettes/vaping Second hand tobacco smoke exposure: No Alcohol intake: former Substance use: former Substance use type: crack/cocaine, heroin and opiates Other substance usage details: clean for over a year Last use: 08/02/19 Additional living arrangements comments: She lives in [place] with 2 room
[2020-09-07 21:54] LABS: Glucose Point of Care 98 (65-105)
[2020-09-08] VITALS (13 sets, daily range): BP systolic 118–129; BP diastolic 68–80; PULSE 67–85; RESP 16–20; TEMP 36.3; O2SAT 95–97
[2020-09-08 00:08] LABS: Anion Gap 1 mmol/L (8-16); Blood Urea Nitrogen 19 mg/dL (7-17); Calcium 8.2 mg/dL (8.4-10.2); Carbon Dioxide 27 mmol/L (22-30); Chloride 111 mmol/L (98-107); Estimated CRCL calculation 44 ml/min; Estimated Glomerular Filt Rate 56; Glucose 113 mg/dL (65-105); Potassium 5.3 mmol/L (3.4-5.0); Sodium 139 mmol/L (137-145)
[2020-09-08] MEDS: traZODone HCL 50 MG TABLET PO ×2 (00:15→20:30)
[2020-09-08 06:07] LABS: Anion Gap 5 mmol/L (8-16); Blood Urea Nitrogen 20 mg/dL (7-17); Calcium 7.9 mg/dL (8.4-10.2); Carbon Dioxide 26 mmol/L (22-30); Chloride 108 mmol/L (98-107); Estimated CRCL calculation 48 ml/min; Estimated Glomerular Filt Rate > 60; Glucose 114 mg/dL (65-105); Potassium 5.5 mmol/L (3.4-5.0); Sodium 139 mmol/L (137-145)
[2020-09-08] MEDS: METOPROLOL SUCCINATE EXT REL 50 MG TABCR PO (08:47)
[2020-09-08] MEDS: MIRTAZAPINE 30 MG TABLET PO (08:47)
[2020-09-08] MEDS: PANTOPRAZOLE SOD SESQUIHYDRATE 20 MG TAB PO (08:47)
--- NOTE | 2020-09-08 09:29 | PM.IMPN ---
Progress Note: A&P Assessment and Plan (1) Hyperkalemia: Code(s): E87.5 - Hyperkalemia Status: Acute Assessment and Plan: The patient presented with mild hyperkalemia, with increase in potassium on repeat levels despite Kayexalate and IV fluid rehydration. She then received calcium gluconate, insulin, dextrose, and albuterol. Potassium improved but this morning increased again. K 5.5 on AM labs. Etiology unclear as she is on no potassium-sparing medications, does not take potassium supplement, and renal function is appropriate with GFR >60. She is asymptomatic. Telemetry reviewed with no evidence of arrhythmias. Repeat potassium and magnesium. Consider repeat cocktail for hyperkalemia based on levels at that time Will obtain renal ultrasound to further assess for renal etiology for hyperkalemia. Continue renal diet. She has been educated on following a lower potassium diet Continue monitoring on telemetry. (2) Hypermagnesemia: Code(s): E83.41 - Hypermagnesemia Status: Acute Assessment and Plan: Magnesium also elevated on presentation. Review of prior labs show that this may be a chronic finding. This could explain her hyperkalemia as well. She is also not on magnesium supplements or other medications which could affect her magnesium levels. Repeat magnesium early afternoon (3) Decreased GFR: Code(s): R94.4 - Abnormal results of kidney function studies Status: Acute Assessment and Plan: review of prior labs demonstrates decreased GFR ongoing since July 2020 as low as 35, and she likely has some form of chronic kidney disease. Today, her GFR is >60. Appears her renal function has improved following IV hydration. May be affecting her potassium levels as noted above. Monitor trends Obtain renal ultrasound (4) Chronic anemia: Code(s): D64.9 - Anemia, unspecified Status: Acute Assessment and Plan: on review of prior labs, appears to be consistent with baseline. Vital signs are stable and she has no signs of active bleeding. Monitor H&H (5) Psychiatric illness: Code(s): F99 - Mental disorder, not otherwise specified Status: Acute Assessment and Plan: She has extensive psychiatric history including anxiety, bipolar disorder, borderline personality disorder, and history of self-mutilation. She is established with primary care provider who manages her medications. It appears she is well controlled at this time. Her mood is stable. Continue Remeron (6) Gastroesophageal reflux disease: Code(s): K21.9 - Gastro-esophageal reflux disease without esophagitis Status: Acute Assessment and Plan: Asymptomatic at this time. Continue pantoprazole Subjective Date/time seen: 09/08/20 09:29 Interval history: Date of service: 09/08/2019 Eboni Alfred this 60-year-old female with a history of COPD GERD, anxiety, bipolar disorder, and several other comorbidities who is seen in follow-up for hyperkalemia. She feels well and reports that she is completely asymptomatic. She was feeling completely fine when she received a call to proceed to the emergency department for her elevated potassium levels. She denies numbness or tingling. Denies muscle cramps, aches or pain. No nausea or vomiting. She had a formed bowel movement this morning. She has been eating well. She denies chest pain, palpitations, shortness of breath, dizziness, or lightheadedness. She has no additional concerns. Review of Systems Review of Systems: All systems reviewed & are unremarkable except as noted in HPI and below Exam Narrative: Exam Narrative: Ms. Alfred is a thin, well-appearing 60-year-old female who is lying semi recumbent in bed. She appears comfortable and is in NARD. HR 74, BP 123/78, R 16, T 97.4?, 97% on room air Neuro: awake, alert and oriented x4, speech clear, no focal neuro deficits noted
[2020-09-08 11:40] LABS: Glucose Point of Care 88 (65-105)
[2020-09-08 11:44] LABS: Magnesium 2.1 mg/dL (1.6-2.3); Potassium 6.2 mmol/L (3.4-5.0)
[2020-09-08] MEDS: ALBUTEROL SULFATE NEB 2.5 MG/0.5 ML INH 10 MG INHALATION (12:09)
[2020-09-08] MEDS: SODIUM POLYSTYRENE SULFONONATE 15 GM/60 ML BTL 30 GM PO (12:16)
[2020-09-08] MEDS: CALCIUM GLUC 1,000 MG/NS 50 ML 1,000 MG/50 ML BAG 100 MG IVPB (12:17)
[2020-09-08 14:51] LABS: Glucose Point of Care 93 (65-105)
[2020-09-08 17:01] LABS: Anion Gap 5 mmol/L (8-16); Blood Urea Nitrogen 21 mg/dL (7-17); Calcium 8.4 mg/dL (8.4-10.2); Carbon Dioxide 26 mmol/L (22-30); Chloride 112 mmol/L (98-107); Estimated CRCL calculation 48 ml/min; Estimated Glomerular Filt Rate > 60; Glucose 110 mg/dL (65-105); Potassium 4.8 mmol/L (3.4-5.0); Sodium 143 mmol/L (137-145)
[2020-09-08] MEDS: CALCIUM CARBONATE (TUMS) 500 MG (200 MG ELEMENTAL) PO (18:36)
[2020-09-08 21:04] LABS: Potassium 4.4 mmol/L (3.4-5.0)
[2020-09-09] VITALS (8 sets, daily range): BP systolic 105–111; BP diastolic 59–63; PULSE 66–81; RESP 13–16; TEMP 36.2–36.4; O2SAT 96–97; BMI 17.7
[2020-09-09 00:37] LABS: Potassium 3.8 mmol/L (3.4-5.0)
[2020-09-09 06:16] LABS: Hematocrit 30.8 % (37.0-47.0); Hemoglobin 9.1 g/dL (12.0-15.0); Mean Corpuscular HGB Conc 29.5 g/dl (32-36); Mean Corpuscular Hemoglobin 23.8 pg (26-34); Mean Corpuscular Volume 80.6 fl (80-100); Mean Platelet Volume 9.9 fl (7.4-10.4); Platelet Count Result 512 k/mm3 (150-375); Red Blood Count 3.82 M/mm3 (4.2-5.4); White Blood Count 3.7 K/mm3 (4.5-10.0)
[2020-09-09 06:37] LABS: Alanine Aminotransferase 23 U/L (4-35); Albumin Level 3.2 g/dL (3.5-5.1); Alkaline Phosphatase 57 U/L (38-126); Anion Gap 5 mmol/L (8-16); Aspartate Amino Transferase 38 U/L (14-36); Bilirubin,Total 0.2 mg/dL (0.2-1.3); Blood Urea Nitrogen 15 mg/dL (7-17); Calcium 8.1 mg/dL (8.4-10.2); Carbon Dioxide 28 mmol/L (22-30); Chloride 105 mmol/L (98-107); Estimated CRCL calculation 54 ml/min; Estimated Glomerular Filt Rate > 60; Glucose 100 mg/dL (65-105); Magnesium 1.7 mg/dL (1.6-2.3); Potassium 4.4 mmol/L (3.4-5.0); Sodium 138 mmol/L (137-145)
[2020-09-09] MEDS: METOPROLOL SUCCINATE EXT REL 50 MG TABCR PO (08:40)
[2020-09-09] MEDS: PANTOPRAZOLE SOD SESQUIHYDRATE 20 MG TAB PO (08:40)
[2020-09-09] MEDS: MIRTAZAPINE 30 MG TABLET PO (08:40)
[2020-09-09] MEDS: ONDANSETRON INJ 4 MG/2 ML VIAL IV PUSH (12:27)
--- NOTE | 2020-09-09 16:41 | PM.DS ---
DS: Admitting Diagnosis Admitting Diagnosis Admitting Diagnosis: hyperkalemia DS: Discharge Diagnosis Discharge Diagnosis (1) Hyperkalemia: Code(s): E87.5 - Hyperkalemia Status: Acute Assessment and Plan: The patient presented with mild hyperkalemia, with increase in potassium on repeat levels despite Kayexalate and IV fluid rehydration. She then received calcium gluconate, insulin, dextrose, and albuterol. potassium continue to increase despite these interventions with highest level being 6.2. Etiology unclear as she is on no potassium-sparing medications, does not take potassium supplement, and renal function appears to be appropriate with GFR >60. she did have a renal ultrasound which demonstrated mild atrophy of the kidneys, which may be contributing to hyperkalemia. Additionally, she reports diet high in potassium, stating she usually eats 1 or to bananas per day. She remained asymptomatic. Telemetry reviewed with no evidence of arrhythmias. Potassium trended down and remained stable. I discussed the case with Nephrology who believes it is likely due to combination of diet and renal atrophy. We discussed reducing the amount of high potassium foods in her diet. She will repeat a BMP in 1 week and will need to follow-up with her PCP. If this is a recurring issue, she should be referred to nephrology. (2) Hypermagnesemia: Code(s): E83.41 - Hypermagnesemia Status: Acute Assessment and Plan: Magnesium also elevated on presentation. Review of prior labs show that this may be a chronic finding. This could explain her hyperkalemia as well. She is also not on magnesium supplements or other medications which could affect her magnesium levels. Magnesium levels also trended down to normal limits. Again may be related to renal atrophy and diet. (3) Decreased GFR: Code(s): R94.4 - Abnormal results of kidney function studies Status: Acute Assessment and Plan: Review of prior labs demonstrates mildly decreased GFR ongoing since July 2020 as low as 35, and she likely has some form of chronic kidney disease. Her GFR was >60 during her admission. Appears her renal function improved following IV hydration. renal ultrasound demonstrated mild atrophy of kidneys as noted above. Repeat BMP in 1 week and follow-up with PCP, as above. (4) Chronic anemia: Code(s): D64.9 - Anemia, unspecified Status: Acute Assessment and Plan: On review of prior labs, H&H consistent with baseline. Vital signs were stable and she had no signs of active bleeding. (5) Psychiatric illness: Code(s): F99 - Mental disorder, not otherwise specified Status: Acute Assessment and Plan: She has extensive psychiatric history including anxiety, bipolar disorder, borderline personality disorder, and history of self-mutilation. She is established with primary care provider who manages her medications. It appears she is well controlled at this time. Her mood is stable. Continue Remeron (6) Gastroesophageal reflux disease: Code(s): K21.9 - Gastro-esophageal reflux disease without esophagitis Status: Acute Assessment and Plan: Asymptomatic at this time. Continue pantoprazole (7) UTI (urinary tract infection): Code(s): N39.0 - Urinary tract infection, site not specified Status: Acute Assessment and Plan: Urinalysis grossly abnormal upon presentation. She had no urinary symptoms. Urine culture grew >100,000 CFU E coli. she was started on IV Rocephin and transition to p.o. Keflex per susceptibility reports. She will complete 5 days of antibiotic therapy. DS: Summary Hospital Course Reason for hospitalization: Hyperkalemia Hospital Course: date of admission: 09/07/20 date of discharge: 09/09/2020 Eboni Alfred this 60-year-old female with a history of COPD GERD, anxiety, bipolar disorder, and several other comorbiditi
--- NOTE | 2020-09-10 06:28 | WPDCDIQUERY2 ---
CDI Query Clarification Request - UA abnormal upon presentation. She has no urinary symptoms. No clinical signs of underlying infection. No leukocytosis or fever. Urine culture pending. -2/6 urine culture growing >100,000 E coli -Pt placed on Ceftriaxone Sodium Please clarify if there is any clinical significance to urine culture findings.
== END 2020-09-09 17:28 | disposition home or self-care (01) | DRG 641 ==
LOC: ANHED 17:22 → ANH2MED 18:11
PROVIDERS: Physician Assistant; Admitting Provider Family Medicine; Emergency Provider Emergency Medicine; PCP Internal Medicine; Visit Provider Family Medicine
DX: E87.5 Hyperkalemia (principal); N39.0 Urinary tract infection, site not specified; E83.41 Hypermagnesemia; R94.4 Abnormal results of kidney function studies; B96.20 Unspecified Escherichia coli [E. coli] as the cause of diseases classified elsewhere; D64.9 Anemia, unspecified; K21.9 Gastro-esophageal reflux disease without esophagitis; J43.9 Emphysema, unspecified; F17.290 Nicotine dependence, other tobacco product, uncomplicated; F41.9 Anxiety disorder, unspecified; F31.9 Bipolar disorder, unspecified; F60.3 Borderline personality disorder; Z91.5 Personal history of self-harm; Z79.899 Other long term (current) drug therapy
CPT/HCPCS: 36415; 76775; 80048; 80053; 81001; 82533; 82948; 83735; 84132; 85025; 85027; 87077; 87086; 87088; 87186; 93005; 94640; 96361; 96365; 96375; 96376; 99285; A9270; G0378; J0610; J0696; J1815; J2405; J7030

== ENCOUNTER 2020-09-16 09:20 | Emergency (ER) | payer MEDICARE, SELFPAY ==
[2020-09-16] VITALS (8 sets, daily range): BP systolic 111–152; BP diastolic 79–97; PULSE 69–95; RESP 13–18; TEMP 36.6; O2SAT 93–99
--- NOTE | ~2020-09-16 | XR_ITS ---
XR chest 2V DATE: 09/16/2020 10:21 INDICATION: Chest pain. Elevated serum potassium level. TECHNIQUE: PA and lateral views COMPARISON: 07/27/2020 CT pulmonary scan 07/15/2020 portable AP chest FINDINGS: Heart size is within normal range. No pulmonary vascular congestion or pleural effusion. No pulmonary infiltrate or consolidation. No pneumothorax. Moderate hiatal hernia. Bilateral calcified breast implants. Prominent diffuse osteopenia. Prominent reverse S-shaped thoracolumbar scoliosis. IMPRESSION: No active cardiopulmonary disease or congestive changes Severe osteopenia Hiatal hernia Reviewed, dictated and finalized at location B. ARE ASSISTANT
--- NOTE | 2020-09-16 09:27 | ECG_ITS ---
Measurements Intervals [place] Rate: 95 P: 32 [place]: 159 QRS: 52 QRSD: 85 T: 48 QT: 374 QTc: 471 Interpretive Statements SINUS RHYTHM BASELINE ARTIFACT- I, II, AVR, AVL, AVF, V1-V6 NORMAL ECG Electronically Signed On 09-16-2020 9:54:33 LABORATORY [facility] [employer] by Arthur Ching D.O.
[2020-09-16 09:38] LABS: Eosinophils Absolute Auto 0.2 K/mm3 (0-0.3); Eosinophils Percent Auto 5.1 % (0-4.4); Hematocrit 32.7 % (37.0-47.0); Lymphocytes Absolute Auto 1.27 K/mm3 (0.9-3.2); Lymphocytes Percent Auto 32.2 % (18.3-44.2); Mean Corpuscular HGB Conc 30.6 g/dl (32-36); Mean Corpuscular Volume 78.6 fl (80-100); Mean Platelet Volume 9.5 fl (7.4-10.4); Monocytes Absolute Auto 0.5 K/mm3 (0.1-0.6); Monocytes Percent Auto 11.9 % (2.6-8.5); Neutrophils Percent Auto 49.8 % (45.5-73.1); Platelet Count Result 507 k/mm3 (150-375); Red Blood Count 4.16 M/mm3 (4.2-5.4)
--- NOTE | 2020-09-16 09:38 | ED.CHESTPAIN ---
HPI - Chest Pain General Chief Complaint: Chest Pain Stated Complaint: CP, blood in stool Time Seen by Provider: 09/16/20 09:22 Source: patient Mode of arrival: EMS Limitations: no limitations History of Present Illness HPI narrative: Patient is a 60-year-old female who presents by EMS for complaints of chest pain and rectal bleeding. Patient has a large medical history that includes GERD, peptic ulcers, anemia, hyperkalemia and bipolr disorder. She also reports a history of opiate addiction and reports that she has been sober for approximately 1 year. Patient was recently discharged last week after admission for hyperkalemia. Patient reports intermittent chest pain for the past 2 to 3 days, increasing this a.m. She reports mild shortness of breath at times. She also reports moderate amount of blood in stool this am. She reports earlier in the week having diarrhea, she then reports taking Imodium and then having constipation for the past 3-4 days. She reports large stool this am with bright red blood. She denies dizziness or lightheaded. She reports having follow up appointment scheduled for today with Dr. Cardenas. complaint: chest pain and chest heaviness Related Data Home Medications Medication Instructions Recorded Confirmed dicyclomine 10 mg PO TID PRN 09/07/20 09/07/20 mirtazapine [Remeron] 30 mg PO DAILY 09/07/20 09/07/20 Allergies Allergy/AdvReac Type Severity Reaction Status Date / Time bacitracin Allergy Rash Verified 09/16/20 09:25 [From Neosporin ([id number])] Bleach (Sodium Hypochlorite) Allergy Rash Verified 09/16/20 09:25 latex Allergy Rash Verified 09/16/20 09:25 neomycin Allergy Rash Verified 09/16/20 09:25 [From Neosporin ([id number])] polymyxin B Allergy Rash Verified 09/16/20 09:25 [From Neosporin ([id number])] Review of Systems Review of Systems: Narrative: CONSTITUTIONAL: Denies fever, chills, or sweats. EYES: Denies visual changes, redness, or discharge. ENT: Denies rhinorrhea, congestion, sore throat, or otalgia. CARDIOVASCULAR: Reports chest pain, denies palpitations, or edema. RESPIRATORY: Denies cough, reports mild dyspnea. GASTROINTESTINAL: Denies abdominal pain, nausea, vomiting, or diarrhea. GENITOURINARY: Denies dysuria or hematuria. SKIN: Denies rash or itching. MUSCULOSKELETAL: Denies back pain, joint pain, or myalgia. NEUROLOGIC: Denies headache, numbness, dizziness, or weakness. PSYCHIATRIC: Denies anxiety or depression. [facility] Past Medical History Medical History Anxiety Bipolar disorder Borderline personality disorder Cellulitis of left lower leg (~06/2019) Chronic anemia Chronic back pain Closed left hip fracture Status post ORIF. Closed right hip fracture (~06/2019) Presented with subacute fracture, treated nonsurgically. COPD with emphysema Depression Esophageal stricture Status post dilatation. Gastroesophageal reflux disease GI bleed (~01/2019) Hospitalized at [facility]. Patient reports upper GI bleed, unsure whether it was due to an ulcer or varices however she denies history of cirrhosis. 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 History of self mutilation Microcytic anemia Tobacco abuse Vitamin D deficiency Vitiligo Surgical History Surgical History History of breast augmentation History of hip surgery Left hip fracture ORIF. History of tonsillectomy Family History Family History Mother Family history of diabetes mellitus in first degree relative Family history of malignant neoplasm of brain Diabetes mellitus Hypertension Cerebrovascular accident Sibling Family history of malignant neoplasm Family history of diabetes mellitus in first degree relative Diabetes mellitus
[2020-09-16 09:46] LABS: INR 0.9; Prothrombin Time 12.9 Seconds (11.1-14.7)
[2020-09-16 09:48] LABS: Partial Thromboplastin Time 29.3 SECONDS (22.3-36.8)
[2020-09-16 09:57] LABS: Anion Gap 7 mmol/L (8-16); Blood Urea Nitrogen 31 mg/dL (7-17); Carbon Dioxide 24 mmol/L (22-30); Chloride 98 mmol/L (98-107); Estimated Glomerular Filt Rate 50; Glucose 105 mg/dL (65-105); Potassium 5.4 mmol/L (3.4-5.0); Sodium 129 mmol/L (137-145)
[2020-09-16 10:09] LABS: Troponin I < 0.012 ng/mL (0.000-0.034)
[2020-09-16] MEDS: SODIUM CHLORIDE 0.9% IV 1,000 ML 999 ML IV CONT (10:39)
[2020-09-16] MEDS: INSULIN HUMAN REGULAR (*BKC) 100 UNITS/ML 10 UNITS IV PUSH (11:49)
[2020-09-16] MEDS: DEXTROSE 50% 25 GM/50 ML SYRINGE IV PUSH (11:49)
[2020-09-16] MEDS: SODIUM POLYSTYRENE SULFONONATE 15 GM/60 ML BTL PO (11:49)
[2020-09-16 13:12] LABS: Troponin I < 0.012 ng/mL (0.000-0.034)
[2020-09-16] MEDS: DEXTROSE 50% 25 GM/50 ML SYRINGE (13:20)
[2020-09-16] MEDS: SODIUM CHLORIDE 0.9% IV 1,000 ML 1000 ML (13:20)
[2020-09-16 13:26] LABS: Glucose Point of Care 37 (65-105)
[2020-09-16 14:59] LABS: Potassium 4.9 mmol/L (3.4-5.0)
== END 2020-09-16 16:04 | disposition home or self-care (01) ==
PROVIDERS: Emergency Provider Nurse Practitioner; PCP Internal Medicine
DX: E87.5 Hyperkalemia (principal); J43.9 Emphysema, unspecified; D64.9 Anemia, unspecified; K21.9 Gastro-esophageal reflux disease without esophagitis; F31.9 Bipolar disorder, unspecified; F41.9 Anxiety disorder, unspecified; F60.3 Borderline personality disorder; E55.9 Vitamin D deficiency, unspecified; F17.290 Nicotine dependence, other tobacco product, uncomplicated; Z87.11 Personal history of peptic ulcer disease
CPT/HCPCS: 36415; 71046; 80048; 82948; 84132; 84484; 85025; 85610; 85730; 86850; 86900; 86901; 93005; 96361; 96374; 96375; 96376; 99284; A9270; J1815; J7030

== ENCOUNTER 2020-10-23 09:31 | Outpatient (CLI) | payer MEDICARE, SELFPAY ==
--- NOTE | 2020-10-23 | EST_ITS ---
Patient Info Name: Eboni Alfred Age: 60 years : 1960 Gender: Female Ht: 68 in Wt: 130 lbs BSA: 1.68 m2 Technical Quality: Good Exam Date: 10/23/2020 10:00 AM Exam Location: [facility] Patient Status: Outpatient Admit Date: 10/23/2020 Staff Ordering Physician: Bull Cardenas MD Attending Provider: Bull Cardenas MD Exercise Technologist: Rafaela Deal CT Exercise Physician: Arthur Ching DO Exam Type: CA stress test treadmill Study Info Indications - shortness of breath A treadmill exercise stress test was performed. Summary 1. 1. Negative Jose exercise stress test for ischemic ST changes by ECG criteria. 2. 2. Reduced functional capacity, achieving 7 METs of workload. 3. 3. Episodes of paroxysmal atrial tachycardia during exercise. 4. 4. Appropriate HR response to exercise. 5. 5. Appropriate HR recovery at 1 minute post exercise. 6. 6. No imaging with stress testing. 7. 7. Patient informed of the above results. Protocol: [facility] Stress ECG Details Stage: REST Duration (min): 1 min : 16 sec Speed (mph): 0.0 Grade (%): 0 HR (bpm): 72 SBP (mmHg): 120 DBP (mmHg): 78 METS: --- Stage: REST Duration (min): 7 min : 20 sec Speed (mph): 0.0 Grade (%): 0 HR (bpm): 80 SBP (mmHg): 120 DBP (mmHg): 78 METS: --- Stage: STAGE 1 Duration (min): 1 min : 0 sec Speed (mph): 1.7 Grade (%): 10 HR (bpm): 102 SBP (mmHg): 120 DBP (mmHg): 78 METS: --- Stage: STAGE 1 Duration (min): 2 min : 0 sec Speed (mph): 1.7 Grade (%): 10 HR (bpm): 115 SBP (mmHg): 120 DBP (mmHg): 78 METS: --- Stage: STAGE 1 Duration (min): 3 min : 0 sec Speed (mph): 1.7 Grade (%): 10 HR (bpm): 118 SBP (mmHg): 170 DBP (mmHg): 73 METS: --- Stage: STAGE 2 Duration (min): 0 min : 59 sec Speed (mph): 2.5 Grade (%): 12 HR (bpm): 129 SBP (mmHg): 170 DBP (mmHg): 73 METS: --- Stage: RECOVERY Duration (min): 1 min : 0 sec Speed (mph): 0.0 Grade (%): 0 HR (bpm): 110 SBP (mmHg): 170 DBP (mmHg): 73 METS: --- Stage: RECOVERY Duration (min): 2 min : 0 sec Speed (mph): 0.0 Grade (%): 0 HR (bpm): 82 SBP (mmHg): 170 DBP (mmHg): 73 METS: --- Stage: RECOVERY Duration (min): 2 min : 29 sec Speed (mph): 0.0 Grade (%): 0 HR (bpm): 79 SBP (mmHg): 165 DBP (mmHg): 70 METS: --- Rest HR: 80 bpm Peak HR: 151 bpm Rest Sys BP: 120 mmHg Peak Sys BP: 170 mmHg Max Pred HR: 159 bpm % Max Pred HR: 95 % Target HR: 135 bpm Max RPP: 25,670 bpm*mmHg Fuller Score: -3 Termination Reason: Reached target heart rate or workload Cardiac Symptoms: Shortness of breath Max ST Seg Deviation: -1.30 mm Total Time: 3 min : 59 sec Rest [place] BP: 78 mmHg Peak [place] BP: 73 mmHg Angina Score: None Total METS: 6.2 Resting ECG Sinus rhythm. Stress ECG No ST changes. Arrhythmias 3 short runs of atrial tachycardia lasting 7-8 beats during exercise.
== END 2020-10-23 09:32 | disposition home or self-care (01) ==
PROVIDERS: PCP Internal Medicine; Visit Provider Internal Medicine
DX: R07.9 Chest pain, unspecified (principal)
CPT/HCPCS: 93017

== ENCOUNTER 2021-11-18 11:32 | Outpatient (CLI) | payer MEDICARE, SELFPAY ==
--- NOTE | ~2021-11-18 | XR_ITS ---
EXAM: XR cervical spine 4-5V HISTORY: CERVICALGIA HEADACHE X 5 MONTHS COMPARISON: None available FINDINGS: Craniocervical association and atlantoaxial joint are normal. No prevertebral soft tissue swelling. Cervical straightening as can be seen with positioning or muscle spasm. Multilevel moderate disc height loss from C4-5 through C7-T1. Multilevel marginal osteophytosis. Multilevel mild facet s clerosis. IMPRESSION: Moderate degenerative disc disease affecting the mid and lower cervical spine. Multilevel mild facet arthropathy. Reviewed, dictated and finalized at location K.
== END 2021-11-18 11:33 | disposition home or self-care (01) ==
LOC: ANHIMG 11:41
PROVIDERS: PCP Internal Medicine; Visit Provider Internal Medicine
DX: M50.30 Other cervical disc degeneration, unspecified cervical region (principal)
CPT/HCPCS: 72050

== ENCOUNTER 2022-02-23 11:06 | Outpatient (CLI) | payer MEDICARE, SELFPAY ==
--- NOTE | ~2022-02-23 | XR_ITS ---
EXAMINATION:XR cervical spine 4-5V DATE: 02/23/2022 11:38 INDICATION: Neck pain TECHNIQUE: AP, lateral,, bilateral oblique, and odontoid views of the cervical spine are provided. COMPARISON: 11/18/2021 FINDINGS: Alignment is normal. The odontoid is intact. No fracture is identified. There is moderate l oss of intervertebral disc space height from C4-5 through C7-T1. The vertebral body heights are maint ained. There is moderate multilevel facet and uncovertebral joint osteoarthritis. There appears to be severe neuroforaminal stenosis on the left at C5-6 and C6-7. There is partially imaged thoracic dext roscoliosis. Prevertebral soft tissues are normal. IMPRESSION: 1. Moderate cervical spondylosis with probable severe neuroforaminal stenosis on the left in the lowe r cervical spine. Reviewed, dictated and finalized at location B. IMPRESSION: 1. Moderate cervical spondylosis with probable severe neuroforaminal stenosis o n the left in the lower cervical spine.
== END 2022-02-23 11:07 | disposition home or self-care (01) ==
PROVIDERS: PCP Internal Medicine; Visit Provider Internal Medicine
DX: M47.892 Other spondylosis, cervical region (principal)
CPT/HCPCS: 72050

== ENCOUNTER 2022-03-02 08:14 | Outpatient (CLI) | payer MEDICARE, SELFPAY ==
--- NOTE | ~2022-03-02 | CT_ITS ---
EXAMINATION: CT diagnostic chest wo con DATE: 03/02/2022 08:47 INDICATION: Pulmonary nodule TECHNIQUE: Computed tomography (CT) of the chest was performed without intravenous contrast. Automate d exposure control and iterative reconstruction technique were employed. Exam dose: 62.28 mGy-cm tot al exam DLP. COMPARISON: PA and lateral chest 09/[address] scan 07/27/2020 CT pulmonary scan FINDINGS: There is interval resolution of multiple right upper and lower lobe pulmonary nodular densi ties since 07/27/2020, likely due to resolved infectious process. Moderate emphysematous changes. Stable bilateral apical scarring. Stable posterior right upper lobe approximately 5.5 mm nodular dens ity since 07/27/2020. Stable pleural-based approximately 5.8 mm posteromedial superior segment right lower lobe opacity. Stable pleural based approximately 3.3 mm middle lobe anterolateral chest wall op acity. Stable pleural-based posterior right upper lobe approximately 2 x 7 mm opacity. Approximately 3.4 mm pleura-based opacity is again noted along the posterolateral left mid chest wall at the lateral aspect of the greater fissure. No significant new or developing pulmonary mass is noted. No pulmonary infiltrate or consolidation. Prominently peripherally calcified bilateral breast implants. Normal heart size. No pericardial or pleural effusion. No hilar or mediastinal mass lesion or lymphadenopathy is noted. Moderately large sliding hiatal hernia. Prominent degenerative disc disease in the lower cervical spine. Prominent dextroscoliosis of the tho racic spine. COPD IMPRESSION: Resolution of multiple pulmonary nodular densities since 07/27/2020; no significant new or developing pulmonary mass is noted COPD Hiatal hernia Reviewed, dictated and finalized at Location A. Reviewed, dictated and finalized at location B. IMPRESSION: Resolution of multiple pulmonary nodular densities since 0; no significant new or developing pulmonary mass is noted COPD Hiatal hernia
== END 2022-03-02 08:15 | disposition home or self-care (01) ==
PROVIDERS: PCP Internal Medicine; Visit Provider Internal Medicine
DX: J44.9 Chronic obstructive pulmonary disease, unspecified (principal); K44.9 Diaphragmatic hernia without obstruction or gangrene
CPT/HCPCS: 71250

== ENCOUNTER 2022-04-21 11:25 | Outpatient (CLI) | payer MEDICARE, SELFPAY ==
--- NOTE | ~2022-04-21 | XR_ITS ---
EXAM: XR hip BI 2V w AP pelvis DATE: 04/21/2022 11:48 HISTORY: HIP PAIN, PREVIOUS BILAT HIP FX . COMPARISON: 07/10/2019. FINDINGS: Hardware fixation of the left femoral head with 3 cannulated screws, no hardware related c omplication. Decreased mineralization. No acute fracture or dislocation. Healed right obturator ring and intertrochanteric fractures. No lytic or blastic lesion. Degenerative change in the lumbar spine, symphysis pubis, SI joints, and bilateral hips. No erosion or periosteal change. Multiple pelvic phl eboliths. IMPRESSION: No acute osseous finding in the pelvis or bilateral hips. Reviewed, dictated and finalized at location K.
== END 2022-04-21 11:26 | disposition home or self-care (01) ==
PROVIDERS: PCP Internal Medicine; Visit Provider Internal Medicine
DX: M25.559 Pain in unspecified hip (principal)
CPT/HCPCS: 73521

== ENCOUNTER 2023-04-13 00:49 | Day surgery (SDC) | payer MEDICARE, SELFPAY ==
[2023-03-29 14:09] VITALS: BMI 16.8
--- NOTE | 2023-04-12 10:07 | WPDANESEPPF ---
Anes - Initial Pre Proc Eval Procedure: Operation Date: 04/13/23 12:30 Proposed Procedures p Screening Colonoscopy - Twan Estrada MD Date/Time: 04/12/23 10:07 Surgeon: Twan Estrada MD Pre Op Diagnosis: neoplasm screening Patient Data Age: 62 Gender: F Height: 1.75 m Weight: 51.8 kg Allergies Allergy/AdvReac Type Severity Reaction Status Date / Time bacitracin Allergy Rash Verified 04/13/23 11:23 [From Neosporin ([id number])] Bleach (Sodium Hypochlorite) Allergy Rash Verified 04/13/23 11:23 latex Allergy Rash Verified 04/13/23 11:23 neomycin Allergy Rash Verified 04/13/23 11:23 [From Neosporin ([id number])] polymyxin B Allergy Rash Verified 04/13/23 11:23 [From Neosporin ([id number])] Home Medications Medication Instructions Recorded Confirmed Type pantoprazole 20 mg tablet,delayed 20 mg PO DAILY 30 days #30 tabs 07/29/20 03/29/23 Rx release trazodone 50 mg tablet 50 mg PO DAILY 30 days #30 tabs 07/29/20 03/29/23 Rx dicyclomine 10 mg capsule 10 mg PO TID PRN Abdominal 09/07/20 03/29/23 History Discomfort buspirone 10 mg tablet 10 mg PO DAILY 03/29/23 03/29/23 History ferrous sulfate 325 mg (65 mg 65 mg PO DAILY 03/29/23 03/29/23 History iron) tablet furosemide 40 mg tablet 40 mg PO DAILY 03/29/23 03/29/23 History hydroxyzine HCl 25 mg tablet 25 mg PO DAILY 03/29/23 03/29/23 History Patient hx anesthesia problems: none Family hx anesthesia problems: none Results Review: All pre-operative results and documents have been reviewed as part of the pre-operative evaluation. [facility] Past Medical History Medical History (Updated 04/13/23 @ 13:00 by Twan Estrada MD) Anxiety Bipolar disorder Borderline personality disorder Cellulitis of left lower leg (~06/2019) Chronic anemia Chronic back pain CKD (chronic kidney disease) III Closed left hip fracture Status post ORIF. Closed right hip fracture (~06/2019) Presented with subacute fracture, treated nonsurgically. Colon cancer screening COPD with emphysema Depression Esophageal stricture Status post dilatation. Esophageal varices Gastroesophageal reflux disease GI bleed (~01/2019) Hospitalized at [facility]. Patient reports upper GI bleed, unsure whether it was due to an ulcer or varices however she denies history of cirrhosis. 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 History of self mutilation Microcytic anemia Tobacco abuse Vitamin D deficiency Vitiligo Surgical History Surgical History History of breast augmentation History of hip surgery Left hip fracture ORIF. History of tonsillectomy Family History Family History Mother Family history of diabetes mellitus in first degree relative Family history of malignant neoplasm of brain Diabetes mellitus Hypertension Cerebrovascular accident Sibling Family history of malignant neoplasm Family history of diabetes mellitus in first degree relative Diabetes mellitus Father Family history of malignant neoplasm of bone Other Family history of alcoholism Family history of mental disorder Social History Social History Social History: Surrogate decision maker: Aki Paul, friend. Code status: Full code. Smoking packs per day: 1 Smoking cigarettes per day: 20.0 Years smoked: 40 Smoking pack-years: 40.00 Smoking status: Current every day smoker Tobacco type: e-cigarettes/vaping Second hand tobacco smoke exposure: No Alcohol intake: former Alcohol use details: History of alcoholism, has reportedly abstained for several years. Substance use: former Substance use type: crack/cocaine, heroin and opiates Other subs
[2023-04-13 11:25] VITALS: BP 109/69; PULSE 65; RESP 16; TEMP 36.5; O2SAT 100
--- NOTE | 2023-04-13 12:59 | PM.HPGS ---
History of Present Illness History of Present Illness Consent: Risks, benefits, and alternatives have been discussed and questions answered. Patient agrees to proceed with procedure. Chief complaint: neoplasm screening Narrative: Eboni Alfred is a 62 year old female here for screening colonoscopy, she also has celiac but well controlled with diet Review of Systems Constitutional: Constitutional: Denies headache(s) and Denies weakness Eyes: Eyes: Denies blurry vision ENT: Reports Normal hearing present, Denies headache(s) and Denies neck pain Cardiovascular: Cardiovascular: Denies chest pain and Denies dyspnea Respiratory: Respiratory: Denies dyspnea Gastrointestinal: Gastrointestinal: Reports no additional gastrointestinal complaints Genitourinary: Genitourinary: Denies dysuria Musculoskeletal: Musculoskeletal: Denies neck pain Integumentary/Breasts: Skin/Breast: Denies dry skin Neurologic: Reports Normal hearing present, Denies headache(s) and Denies weakness Psychiatric: Psychiatric: Denies anxiety Endocrine: Endocrine: Denies change in body appearance Hematologic/Lymphatic: Hematologic/Lymphatic: Denies easy bleeding Allergic/Immunologic: Allergic/Immunologic: Denies urticaria PMFSH Past Medical History Medical History (Updated 04/13/23 @ 13:00 by Twan Estrada MD) Anxiety Bipolar disorder Borderline personality disorder Cellulitis of left lower leg (~06/2019) Chronic anemia Chronic back pain CKD (chronic kidney disease) III Closed left hip fracture Status post ORIF. Closed right hip fracture (~06/2019) Presented with subacute fracture, treated nonsurgically. Colon cancer screening COPD with emphysema Depression Esophageal stricture Status post dilatation. Esophageal varices Gastroesophageal reflux disease GI bleed (~01/2019) Hospitalized at [facility]. Patient reports upper GI bleed, unsure whether it was due to an ulcer or varices however she denies history of cirrhosis. 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 History of self mutilation Microcytic anemia Tobacco abuse Vitamin D deficiency Vitiligo Surgical History Surgical History History of breast augmentation History of hip surgery Left hip fracture ORIF. History of tonsillectomy Family History Family History Mother Family history of diabetes mellitus in first degree relative Family history of malignant neoplasm of brain Diabetes mellitus Hypertension Cerebrovascular accident Sibling Family history of malignant neoplasm Family history of diabetes mellitus in first degree relative Diabetes mellitus Father Family history of malignant neoplasm of bone Other Family history of alcoholism Family history of mental disorder Social History Social History Social History: Surrogate decision maker: Aki Paul, friend. Code status: Full code. Smoking packs per day: 1 Smoking cigarettes per day: 20.0 Years smoked: 40 Smoking pack-years: 40.00 Smoking status: Current every day smoker Tobacco type: e-cigarettes/vaping Second hand tobacco smoke exposure: No Alcohol intake: former Alcohol use details: History of alcoholism, has reportedly abstained for several years. Substance use: former Substance use type: crack/cocaine, heroin and opiates Other substance usage details: clean for over a year Last use: 08/02/19 Additional living arrangements comments: She lives in [place] with 2 roommates. Additional occupation/education comments: On disability. Gender identity (if verbalized by the patient): Female Spiritual care concerns: No Agree to blood products: Yes Meds Home Medications and Allergies Home Medications
[2023-04-13] MEDS: LACTATED RINGERS 1,000 ML 150 ML IV CONT (13:21)
[2023-04-13 13:25] VITALS: BP 99/66; PULSE 60; RESP 16; O2SAT 100
[2023-04-13 13:35] VITALS: BP 110/72; PULSE 60; RESP 16; O2SAT 100
[2023-04-13 13:45] VITALS: BP 112/74; PULSE 62; RESP 16; O2SAT 100
== END 2023-04-13 13:48 | disposition home or self-care (01) ==
PROVIDERS: PCP Internal Medicine; Visit Provider Internal Medicine Gastroenterology
PROC: 0DJD8ZZ Inspection of Lower Intestinal Tract, Via Natural or Artificial Opening Endoscopic (ICD-10-PCS; CPT 45378; principal; 2023-04-13 12:30)
DX: Z12.11 Encounter for screening for malignant neoplasm of colon (principal); D12.3 Benign neoplasm of transverse colon; D12.4 Benign neoplasm of descending colon; K57.30 Diverticulosis of large intestine without perforation or abscess without bleeding; K90.0 Celiac disease; J43.9 Emphysema, unspecified; N18.30 Chronic kidney disease, stage 3 unspecified; F31.9 Bipolar disorder, unspecified; F60.3 Borderline personality disorder; K21.9 Gastro-esophageal reflux disease without esophagitis; F41.9 Anxiety disorder, unspecified; F17.290 Nicotine dependence, other tobacco product, uncomplicated; F10.21 Alcohol dependence, in remission; F11.21 Opioid dependence, in remission
CPT/HCPCS: 45385; 88305; J2704; J7120

== ENCOUNTER 2023-09-28 11:44 | Outpatient (CLI) | payer MEDICARE, SELFPAY ==
--- NOTE | ~2023-09-28 | XR_ITS ---
EXAMINATION: XR lumbar spine 2-3V DATE: 09/28/2023 12:13 INDICATION: Low back pain TECHNIQUE: Anteroposterior and lateral views of the lumbar spine, and cone-down lateral view of the l umbosacral junction were obtained. COMPARISON: None. FINDINGS: There are 32 degrees of lumbar levoscoliosis. There is no fracture. There is moderate asymm etric loss of intervertebral disc space on the right at L2-3, L3-4, and L4-5. The vertebral body heig hts are maintained. No fracture is identified. There is multilevel severe facet joint osteoarthritis. IMPRESSION: 1. Lumbar levoscoliosis and moderate spondylosis without acute findings identified. Reviewed, dictated and finalized at location L. MBLER BONDING IMPRESSION: 1. Lumbar levoscoliosis and moderate spondylosis without acute findings identif ied.
--- NOTE | ~2023-09-28 | XR_ITS ---
EXAMINATION: XR thoracic spine 2V DATE: 09/28/2023 12:13 INDICATION: Thoracic scoliosis and pain TECHNIQUE: AP, lateral and lateral swimmer's views of the thoracic spine were obtained. COMPARISON: None. FINDINGS: There are 47 degrees of thoracic dextroscoliosis. Bone alignment is normal. No fracture is identified. The vertebral body heights are maintained. There is multilevel mild to moderate loss of i ntervertebral disc space height. IMPRESSION: 1. Thoracic dextroscoliosis and mild spondylosis without acute findings. Reviewed, dictated and finalized at location L. ORATION ECOLOGIST
== END 2023-09-28 11:45 | disposition home or self-care (01) ==
PROVIDERS: PCP Internal Medicine; Visit Provider Internal Medicine
DX: M41.80 Other forms of scoliosis, site unspecified (principal); M47.894 Other spondylosis, thoracic region; M47.896 Other spondylosis, lumbar region
CPT/HCPCS: 72070; 72100

== ENCOUNTER 2023-10-27 13:47 | Outpatient (CLI) | payer MEDICARE, SELFPAY ==
--- NOTE | ~2023-10-27 | CT_ITS ---
EXAMINATION:CT diagnostic chest wo con DATE: 10/27/2023 14:12 INDICATION: Pulmonary nodule. TECHNIQUE: Computed tomography (CT) of the chest was performed without intravenous contrast. Automate d exposure control and iterative reconstruction technique were employed. The dose-length product (DLP ) was 62.28 mGy-cm. COMPARISON: Chest CT 03/02/2022 FINDINGS: There is mild scarring at the lung apices. There is mild emphysema. There is mild atelectas is bilaterally. There are a few scattered nodules in the lungs measuring up to 5 mm without change, l ikely benign. No pleural effusion. There is size is normal. There are coronary artery calcifications. There is a moderate-sized sliding hiatal hernia. There are bilateral breast implants. There is intra capsular rupture of the right breast implant. There is thoracic dextroscoliosis and moderate spondylo sis. IMPRESSION: 1. Stable small pulmonary nodules, likely benign. 2. Moderate-sized sliding hiatal hernia. 3. Mild emphysema. Reviewed, dictated and finalized at location A.
--- NOTE | ~2023-10-27 | US_ITS ---
US thyroid INDICATION: Multiple nodular goiter TECHNIQUE: Real-time sonographic images of the thyroid gland were obtained. COMPARISON: No prior studies for comparison. FINDINGS: The right thyroid lobe measures 4.6 x 1.7 x 1.4 cm. The left thyroid lobe measures 4.8 x 0 .9 x 1.6 cm. Diffusely heterogeneous thyroid echotexture. In the right lobe there is a 4 mm solid hyp erechoic wider than tall, smoothly marginated mass with peripheral rim calcifications, TR 4. In the r ight lobe there is an oval mixed solid and cystic hypoechoic mass measuring 9 x 8 x 6 mm wider than t all, smooth margins and punctate echogenic foci TR 4. Isthmus measures 3 mm. In the left lobe there i s a solid, wider than tall hypoechoic irregular shaped mass with macrocalcifications measuring 7 x 6 x 4 mm TR 5. IMPRESSION: 1. Irregular shape 7 mm hypoechoic left thyroid mass, TR 5. Recommend follow-up ultrasound in 12 mon ths. Additional right thyroid nodules are likely benign. Reviewed, dictated and finalized at location L. IMPRESSION: 1. Irregular shape 7 mm hypoechoic left thyroid mass, TR 5. Recommend follow-u p ultrasound in 12 months. Additional right thyroid nodules are likely benign.
== END 2023-10-27 13:48 | disposition home or self-care (01) ==
PROVIDERS: PCP Internal Medicine; Visit Provider Internal Medicine
DX: R91.8 Other nonspecific abnormal finding of lung field (principal); E04.2 Nontoxic multinodular goiter; K44.9 Diaphragmatic hernia without obstruction or gangrene; J43.9 Emphysema, unspecified
CPT/HCPCS: 71250; 76536

== ENCOUNTER 2024-11-03 11:12 | Outpatient (CLI) | payer MEDICARE, SELFPAY ==
--- NOTE | ~2024-11-03 | XR_ITS ---
Cervical Spine: AP, lateral, open-mouth views Clinical History: Pain Findings: There is mild straightening of the normal cervical lordosis. No fracture or subluxation. Th ere is moderate to advanced degenerative disc narrowing throughout the majority cervical spine, espec ially from C4 through C7. There is moderate facet arthropathy. No instability evident on flexion or e xtension. Pre-vertebral soft tissues are unremarkable. Impression: Moderate to advanced degenerative spondylosis, as above. Reviewed, dictated and finalized at location M. Impression: Moderate to advanced degenerative spondylosis, as above.
--- OUTSIDE RECORDS SUMMARY | 2024-11-03 11:41 | XMS_ITS | Clinical Summary ---
Author Organization [facility] Address [address] [place] [address] Care Team Providers Care Wind Field Manager Name Role Phone Unavailable Primary Care Provider Unavailabl e Source Comments [facility],non-owned Affiliates and Associated Physician Practices is amultiple site organization consisting of ambulatory clinics and hospital sitesin [place], [place], [place] and [place]. This disclosure is being madepursuant to the Care Everywhere program and may not contain all information available regarding this patient. Last updated 18.[facility] Allergies Active Allergy Reactions Criticality Noted Date Comments Gluten Meal GI Discomfort 01/19/2019 Lactose GI Discomfort 01/19/2019 Medications * Be aware that medications may not be up to date on this document. Alwaysverify current medications with the patient. Medication Sig Dispensed Refills Start Date End Date Status lansoprazole (PREVACID) 30 MG capsule Take 30 mg by mouth daily before breakfast Active LORazepam (ATIVAN) 1 MG tabletIndications:Anx iety Take 1 tablet by mouth nightly as needed for Anxiety Reasons: Feeling Anxious 30 tablet 01/25/2019 Active mirtazapine (REMERON) 15 MG tabletIndications:Chauncey or Depressive Disorder Take 1 tablet by mouth at bedtime Reasons: Major Depressive Disorder 30 tablet 1 01/25/2019 Active nicotine (NICODERM CQ) 14 MG/24HR patchIndications:Adam jay Dependence Apply 1 patch to skin once daily Remove old patch before applying new patch. Reasons: Nicotine Addiction 15 patch 01/25/2019 Active Additional Information Patient not taking.Reported on 02/01/2019 QUEtiapine (SEROQUEL) 50 MG tabletIndications:Chauncey or Depressive Disorder,Sleep. Take 1 tablet by mouth at bedtime Reasons: Major Depressive Disorder, Sleep. 15 tablet 01/25/2019 Active iron polysaccharides (FERREX 150) 150 MG capsuleIndications:Ir on deficiency anemia, unspecified iron deficiency anemia type,Abnormal weight loss Take 1 capsule by mouth once daily 30 capsule 3 02/01/2019 Active loperamide (IMODIUM) 2 MG capsuleIndications:Ir on deficiency anemia, unspecified iron deficiency anemia type,Abnormal weight loss Take 1 capsule by mouth 4 times daily as needed for Diarrhea 30 capsule 02/01/2019 Active Active Problems Problem Noted Date Diagnosed Date Abnormal weight loss 02/01/2019 Opioid dependence with withdrawal 01/19/2019 Suicide attempt 01/19/2019 Major depressive disorder, r ecurrent, severe without psychotic features 01/18/2019 Anemia Family History Medical History Relation Name Comments Cancer - Prostate Father Alzheimer's Disease Mother Cancer - Colon Mother Relation Name Status Comments Father Mother Social History Tobacco Use Types Packs/Day Years Used Date Smoking Tobacco: Every Day Cigarettes 1 39 Smokeless Tobacco: Never Tobacco Cessation:Ready to Q uit: No; Counseling Given: No Alcohol Use Standard Drinks/Week Comments No 0 (1 standard drink = 0.6 oz pur e alcohol) Sex and Gender Information Value Date Recorded Sex Assigned at Not on file Gender Identity Not on file Sexual Orientation Not on file Last Filed Vital Signs Vital Sign Reading Time Taken Comments Blood Pressure 102/61 02/01/2019 9:31 AM CDT Pulse 73 02/01/2019 9:31 AM CDT Temperature 36.3 C (97.4 F) 02/01/2019 9:31 AM CDT Respiratory Rate 16 02/01/2019 9:31 AM CDT Oxygen Saturation 92% 02/01/2019 9:31 AM CDT Inhaled Oxygen Concentration - - Weight 48.9 kg (107 lb 12.8 oz) 02/01/2019 9:31 AM CDT Height 177.8 cm (5' 10 ) 02/01/2019 9:31 AM CDT Body Mass Index 15.47 02/01/2019 9:31 AM CDT Plan of Treatment Health Maintenance Due Date Last Done Comments BONE DENSITY TESTING 1960 COLOGUARD (AGES 45-75) - COL ON CA SCREENING 1960 COLON MONITORING 1959 COLONOSCOPY - COLON CA SCREENING 1959 CT COLONOGRAPHY - COLON CA SCREENING 1960 Colorectal Cancer Screening 1960 FIT - COLON CA SCREENING 1959 FLEX SIG - COLON CA SCREENING 1960 MAMMOGRAM 1960 PAP SMEAR 1959 HIV SCREENING 1974 HEPATITIS C SCREENING 08/14/1977 DTAP/TDAP/TD VACCINES (1 - Tdap) 1978 PNEUMOCOCCAL VACCINE 50+ (1 of 2 - PCV) 1978 PNEUMOCOCCAL VACCINE (1 of 2 - PCV) 1978 LUNG CANCER SCREENING 2009 ZOSTER VACCINE (1 of 2) 2009 Respiratory Syncytial Virus (RSV) Vaccine Pt: or over 60 yrs (1 - Risk 60-74 years 1-dose series) 2019 LIPID TESTING 01/24/2024 01/23/2019 COVID-19 VACCINE (1 - 2023-2 5 season) 2024 INFLUENZA VACCINE (#1) 2024 DEPRESSION SCREENING 08/02/2024 MEDICARE AWV CALENDAR YEAR 2024 HEPATITIS B VACCINE Aged Out No longe r eligible based on patient's age to complete this topic HIB VACCINE Aged Out No longer eligi ble based on patient's age to complete this topic HPV VACCINE Aged Out No longer eligi ble based on patient's age to complete this topic MENINGOCOCCAL (Group B) VACC INE SHARED DECISION-MAKING Aged Out No longer eligibl e based on patient's age to complete this topic MENINGOCOCCAL GROUPS A/C/Y/W VACCINE Aged Out No longer eligible b ased on patient's age to complete this topic Procedures Procedure Name Priority Date/Time Associated Diagnosis Comments LIPID PROFILE Routine 01/23/2019 5:59 AM CDT from Last 3 Months or Most Recently Relevant to Health Maintenance Results * (ABNORMAL) LIPID PROFILE (01/23/2019 5:59 AM CDT) [facility] Cholesterol 73 <200 mg/dL 01/23/2019 6:53 AM CDT [facility] Triglycerides 21 <150 mg/dL 01/23/2019 6:53 AM CDT [facility] HDL Cholesterol 47 >40 mg/dL 9 6:53 AM CDT [facility] Chol HDL Ratio 1.6 1.0 - 6.0 01/23/2019 6:53 AM [facility] LDL Calculated 22(L) 65 - 130 mg/dL 01/23/2019 6:53 AM T [facility] VLDL Calculated 4(L) 10 - 40 mg/dL 01/23/2019 6:53 AM T [facility] Blood BLOOD SPECIMEN / Unknown Lab Venipuncture / Unknown 01/23/2019 5:59 AM CDT 01/23/2019 6:06 AM CDT [facility] - 01/23/2019 6:53 AM CDT Lipid Profile Comment: CHOLESTEROL LEVEL..................CLINICAL INTERPRETATION LESS THAN 200 MG/DL..............................DESIRABLE 200-239 MG/DL..............................BORDERLINE HIGH GREATER THAN 240 MG/DL................................HIGH LDL-CHOLESTEROL LEVEL..............CLINICAL INTERPRETATION LESS THAN 100 MG/DL................................OPTIMAL 100-129 MG/DL.................................NEAR OPTIMAL GREATER THAN 160 MG/DL...........................HIGH RISK HDL RISK LEVEL GREATER THEN 60 MG/DL............................DECREASED 40-60 MG/DL........................................AVERAGE LESS THAN 40 MG/DL...............................INCREASED TRIGLYCERIDE LEVEL..................CLINICAL INTERPRETATION LESS THAN 150 MG/DL...............................DESIRABLE 150-199 MG/DL...............................BORDERLINE HIGH 200-499 MG/DL..........................................HIGH GREATER THAN 500..................................VERY HIGH THE NATIONAL CHOLESTEROL EDUCATION PROGRAM HAS SET THE ABOVE GUIDELINES (REFERANCE VALUES) FOR CHOLESTEROL AND HDL. RISK ASSOCIATED WITH CHOLESTEROL/HDL RATIOS RISK....................MALE RATIO.............FEMALE RATIO 1/2 AVERAGE.................<3.4.......................<3.3 LOW RISK.................... 4.0 ...................... 3.8 AVERAGE..................... 5.0 ...................... 4.5 2X AVERAGE.................. 9.5 ...................... 7.0 3X AVERAGE...................>23........................>11 Hema Montoya MD LAB - CHEMISTRY [facility] [address] [place] [address], [facility] from Last 3 Months or Most Recently Relevant to Health Maintenance Advance Directives * Full Code (Latest Code Status on File) Date Activated Date Inactivated Comments 01/19/2019 9:44 AM 01/25/2019 1:08 PM * Full Code Date Activated Date Inactivated Comments 01/18/2019 8:19 PM 01/19/2019 9:44 AM
--- OUTSIDE RECORDS SUMMARY | 2024-11-03 11:41 | XMS_ITS | Continuity of Care Document ---
Author Organization [facility] Address [address] [place] [address] Phone Care Team Providers Care Peoplesoft Taleo Manager Name Role Phone Kaitlynn Guerrero NP Unavailable Unavailable Medications Medication Instructions Dosage Effective Dates (start - stop) Status Comments Lexapro 10 mg Tab TAKE 1 TABLET BY EVERY DAY . 10 MG - Active ferrous sulfate ER 325 mg (65 mg iron) capsule,extended release take 1 tablet by oral route every day - Active Drisdol 50,000 unit capsule take 1 capsule ([id number]) by oral route every week - Active [...] Diagnoses Date Provider Providers Copied on Encounter [facility], [address], [place], [place], [id number] , [place] tel: [phone] [facility] No Information 5 Cesar Calderón. [address] [facility], [facility] [place] [address], [place], [id number] . tel: [phone] [facility], [address], [place], [place], [id number] , [place] tel: [phone] [facility] No Information 3 Ethan Forrester. [address] [facility], [address], [place], [place], [address] , [place]. tel: [phone] [facility], [address], [place], [place], [address] , tel: [phone] [facility] Well woman exam with routine gynecological examTobacco use disorder [address] Johnson. [address] [place] [address], [address] , [place], [place], [address] , . tel: [phone] Referring Provider: Usama Long, [address] [place] [address] [address], [place], [place], [address] [place] [address] . tel:[phone] [facility], [address], [place], [place], [address] , tel: [phone] [facility] Bipolar disorder, unspecifiedAttention deficit disorder without mention of hyperactivityTobacco use disorderCeliac diseaseEsophageal reflux 2 Ethan Forrester. [address] [place] [address], [address], [place], [place], [address] , . tel: [phone] Referring Provider: Usama Long, [address] [place] [address] [address] , [place], [place], [address] [place] [address] . tel:[phone] [facility], [address], [place], [place], [address] , tel: [phone] [facility] Bipolar disorder, unspecifiedAttention deficit disorder without mention of hyperactivityTobacco use disorder 2 Ethan Forrester. [address] [place] [address], [address], [place], [place], [address] , . tel: [phone] [facility], [address], [place], [place], [address] , tel: [phone] [facility] No Information 2 Ethan Forrester. [address] [place] [address], [address], [place], [place], [address] , . tel: [phone] [facility], [address], [place], [place], [address] , tel: [phone] [facility] Bipolar disorder, unspecifiedAttention deficit disorder of childhood without mention of hyperactivityBipolar disorder, unspecifiedAttention deficit disorder of childhood without mention of hyperactivityTobacco use disorderTobacco use disorder 1 Ethan Forrester. [address] [place] [address], [address], [place], [place], [address] , [place]. tel: [phone] Referring Provider: Usama Long, [address] [place] [address] [address], [place], [address] . tel:[phone] Family History Family Member Type Diagnosis Age At Onset Brother Problem (finding) diabetes melli tus in first degree relative Problem (finding) Family history of Cance r Payers Payer name Insurance type Covered republican ID Marvin burgess(s) [employer] [id number] Social History Type Description Quantity Date Captured [...]
--- OUTSIDE RECORDS SUMMARY | 2024-11-03 11:41 | XMS_ITS | Referral Summary ---
Author Organization [facility] Address [address] [place] [address] Care Team Providers Care Regional Vice President Life Sales Name Role Phone Bull Cardenas MD Primary Care Provider [phone] Allergies Active Allergy Reactions Criticality Noted Date Comments Gluten Other (See comments) Low 12/18/2022 Unable to digest gluten products Lactose Stomach upset,Nausea And Vomiting Low 01/17/2019 Medications dicyclomine (BENTYL) 10 mg capsule Take 1 capsule (10 mg total) by mouth 4 (four) times a day before meals and nightly Active patiromer calcium sorbitex (VELTASSA ORAL) Take 16.8 g by mouth daily Active traZODone (DESYREL) 100 mg tablet Take 1 tablet (100 mg total) by mouth nightly Active famotidine (PEPCID) 20 mg tablet Take 1 tablet (20 mg total) by mouth daily Active ferrous fumarate 325 mg (106 mg iron) tablet Take 1 tablet (325 mg total) by mouth daily with breakfast Active busPIRone (BUSPAR) 10 mg tabletIndicatio ns:Generalized Anxiety Disorder Take 1 tablet (10 mg total) by mouth daily Active hydrOXYzine (ATARAX) 25 mg tablet Take 1 tablet (25 mg total) by mouth 3 (three) times a day as needed for itching Active furosemide (LASIX) 40 mg tablet 3 Active tiZANidine (ZANAFLEX) 4 mg tablet 4 Active gabapentin (NEURONTIN) 300 mg capsuleIndicati ons:Neuropathic Pain Take 1 capsule (300 mg total) by mouth nightly 90 capsule 3 4 Active cholecalciferol , vitamin D3, (VITAMIN D3 ORAL) Take by mouth Active CALCIUM ORAL Take by mouth Act chalino multivit with minerals/lutein (MULTIVITAMIN 50 PLUS ORAL) Take by mouth Ac tive baclofen (LIORESAL) 10 mg tablet Take 1 tablet (10 mg total) by mouth as needed for muscle spasms Active naltrexone (DEPADE) 50 mg tablet Take 1 tablet (50 mg total) by mouth daily 8 tablet 3 4 06/21/20 25 Active Active Problems Problem Noted Date Diagnosed Date Thoracic radiculopathy 05/31/2024 Unequal limb length (acquired), unspecified site 05/29/2024 Leg length discrepancy 04/17/2024 Other secondary scoliosis, thoracolumbar region 04/16/2024 Nontoxic multinodular goiter 04/16/2024 Bilateral primary osteoarthritis of hip 04/16/20 Dorsalgia, unspecified 04/16/2024 Spondylosis without myelopat hy or radiculopathy, lumbar region 04/16/2024 Solitary pulmonary nodule 04/16/2024 Chronic bilateral low back pain with bilateral s ciatica 04/13/2024 Anemia 04/29/2023 Abnormal weight loss 02/01/2019 Opioid dependence with withdrawal 01/19/2019 Suicide attempt 01/19/2019 Major depressive disorder, r ecurrent, severe without psychotic features 01/18/2019 Abnormal electrocardiogram 05/24/2017 Bipolar 1 disorder 05/24/2017 Bradycardia 05/24/2017 Depression 05/24/2017 Distention of artery 05/24/2017 Hepatitis C 05/24/2017 Urinary tract infection 05/24/2017 Immunizations Immunization Administration Dates Next Due Influenza, Quadrivalent, Spl it, Preservative Free, Intramuscular 07/29/2020 Social History Tobacco Use Types Packs/Day Years Used Date Smoking Tobacco: Every Day Vaping Smokeless Tobacco: Current Tobacco Cessation:Ready to Q uit: Not Asked; Counseling Given: Not Answered AUDIT-C Answer Date Recorded Q1: How often do you have a drink containing alcohol? Never 06/21/2024 Q2: How many drinks containi ng alcohol do you have on a typical day when you are drinking? Patient does not drink Q3: How often do you have si x or more drinks on one occasion? Never 06/21/2024 Personal Safety Answer Date Recorded Have you ever been in or are you currently in a harmful physical or emotional relationship or is someone making you feel afraid or unsafe? Denies 05/13/2023 Comments No Sex and Gender Information Value Date Recorded Sex Assigned at Not on file Legal Sex Female 2:01 AM DRILL BIT SHARPENER Gender Identity Not on file Sexual Orientation Not on file Last Filed Vital Signs Vital Sign Reading Time Taken Comments Blood Pressure 129/79 06/21/2024 11:05 AM DRILL BIT SHARPENER Pulse 72 06/21/2024 11:05 AM DRILL BIT SHARPENER Temperature 36.1 C (97 F) 06/21/2024 11:05 AM DRILL BIT SHARPENER Respiratory Rate 16 06/21/2024 11:05 AM DRILL BIT SHARPENER Oxygen Saturation 95% 06/21/2024 11:05 AM DRILL BIT SHARPENER Inhaled Oxygen Concentration - - Weight 54 kg (119 lb) 06/21/2024 11:05 AM DRILL BIT SHARPENER Height 165.1 cm (5' 5 ) 06/21/2024 11:05 AM DRILL BIT SHARPENER Body Mass Index 19.8 06/21/2024 11:05 AM DRILL BIT SHARPENER Plan of Treatment Not on file Goals Goal Patient Goal Type Associated Problems Recent Progress Patient-Stated? Author CCM Chronic Pain Care Plan Chronic Care Management No Nicolle Flowers, RN Note: Problem: Chronic Pain Goals: 1. Minimize further functional decline 2. Maximize quality of life 3. Control pain Strategies: - Activity/exercise program recommendation - Conservative stepwise pain medicine strategy with multi-disciplinary approach - Recommend healthy lifestyle strategies and compensatory methods as needed Reduce the likelihood of falling Lifestyle Nicolle Martins, RN Note: Below are four things you can do to prevent falls: Begin an exercise program to improve your leg strength & balance Ask your doctor or pharmacist to review your medicines Get annual eye check-ups & update your eyeglasses Make your home safer by: Removing clutter & tripping hazards Putting railings on all stairs & adding grab bars in the bathroom Having good lighting, especially on stairs Contact your local community or senior center for information on exercise, fall prevention programs, or options for improving home safety. Procedures Procedure Name Priority Date/Time Associated Diagnosis Comments DEXA TBS AXIAL SKELETON BONE DENSITY 1 OR MORE SITES Schedule Routine, Read Routine (OP Routine) 06/16/2024 9:10 AM DRILL BIT SHARPENER Age-related osteoporosis without current pathological fracture SCREENING MAMMOGRAM BILATERAL W MAXX W IMPLANTS Schedule Routine, Read Routine (OP Routine) 11/23/2022 12:17 PM CDT Encounter for screening mammogram for malignant neoplasm of breast from Last 3 Months or Most Recently Relevant to Health Maintenance Results * Dexa TBS Axial Skeleton Bone Density 1 or more sites (06/16/2024 9:10 AM DRILL BIT SHARPENER) Anatomical Region Laterality Modality Wrist, Body N/A Radiographic Tanna ging Narrative 06/19/2024 8:28 AM DRILL BIT SHARPENER Patient Name: Eboni Alfred Date of : 1960 Date of scan: 06/16/2024 Bone mineral density was performed on a [employer] Discovery Densitometer. Based on machine cross-calibration and precision studies the least significant changes of this densitometer is 0.024 g/cm2 at the spine, 0.020 g/cm2 at the total proximal femur, and 0.014g/cm2 at the forearm. HISTORY: This is a 63 y.o. postmenopausal female with a history of celiac disease and osteoporosis. She reports that she has quit smoking. Her smoking use included cigarettes. She uses smokeless tobacco. Currently on treatment with calcium, vitamin D, and diuretics and current complaint of back pain. INDICATIONS: Menopause status, history of prior hip and wrist fracture, and history of osteoporosis. FINDINGS: BONE MINERAL DENSITY OF THE LUMBAR SPINE Bone Mineral Density (BMD) of the lumbar spine was measured from L1-L4 and the average density was calculated to be 0.761 gm/cm2. This corresponds to a T-score (standard deviations from the mean of young adults) of -2.6. There is no previous study available for comparison. BONE MINERAL DENSITY OF THE PROXIMAL FEMUR Bone Mineral Density (BMD) of the right hip total was found to be 0.578 gm/cm2. This corresponds to a T-score standard deviations from the mean of young adults of -3.0. Femoral neck is 0.739 gm/cm2 with a T-score (standard deviations from the mean of young adults) of -1.0. There is no previous study available for comparison. BONE MINERAL DENSITY OF THE FOREARM Bone Mineral density (BMD) of the left proximal 1/3 of the radius measures 0.401 gm/cm2. This corresponds to a T-score (standard deviations from the mean of young adults) of -4.9. There is no previous study available for comparison. A forearm bone density study was performed in addition to the routine study because of severe scoliosis. SUMMARY: Bone mineral density shows evidence of osteoporosis and marked increase risk of fracture. The lumbar spine Trabecular Bone Score is 1.250 which suggests partially degraded bone microarchitecture compared to the general population. Final decisions regarding diagnostic or therapeutic recommendations should include BMD, TBS, additional clinical risk factors as well the clinical context of the patient. Please see attached TBS results for further details. ADDITIONAL COMMENTS: Postmenopausal Women and Men Over 50: Diagnostic criteria: Osteoporosis: BMD at or below -2.5 T-score; Osteopenia (low bone mass): BMD between -1.0 and -2.5 T-score. If the patient has a history of a fragility fracture, a fracture that occurred with trauma equivalent to a fall from a standing position or less, then the diagnosis is osteoporosis regardless of bone density. The history and data sections of the bone mineral density scan were prepared by Betsy Hannah(R) DELFIN who is accredited by the International Society of Clinical Densitometry. The overall patient assessment and scan interpretation were performed by Charity Alfred M.D. who is certified by the International Society of Clinical Densitometry. [id number] Charity Alfred MD [facility] [place]ED[place] Final R esult * Screening Mammogram Bilateral W Maxx W Implants (11/23/2022 12:17 PM CDT) Anatomical Region Laterality Modality Breast Bilateral Mammography 11/23/2022 12:3 7 PM CDT Impressions 11/23/2022 12:37 PM CDT No evidence of malignancy in either breast. FINAL ASSESSMENT: BI-RADS Category 1: Negative. RECOMMENDATION: Recommend return for annual screening mammogram in 12 months. Electronically signed by: Cata Rincon 11/23/2022 12:37 PM CDT EXAMINATION: BILATERAL SCREENING MAMMOGRAM COMPARISON: New baseline. TECHNIQUE: Full-field 2D and digital breast tomosynthesis (DBT) images were obtained. CAD was utilized. Technically difficult exam. BREAST PARENCHYMAL COMPOSITION: There are scattered areas of fibroglandular density. FINDINGS: There is no suspicious mass, calcification, or distortion in either breast. There has been no significant interval change from the prior study. Bilateral silicone breast implant with calcified outer border bilaterally. Bull Cardenas MD IM MAMMO PROCEDURES Final Re sult from Last 3 Months or Most Recently Relevant to Health Maintenance Insurance MEDICARE ADVANTAGE [facility] MEDICARE ADVANTAGE Care Teams Regional Vice President Life Sales Relationship Specialty Start Date End Date Bull Cardenas MD [address] [place] [address] [place] [address] PCP - General Internal Medicine 11/17/22
--- OUTSIDE RECORDS SUMMARY | 2024-11-03 11:41 | XMS_ITS | Encounter Summary ---
Author Organization [facility] Address [address] [place] [address] Phone Care Team Providers Care Case Repairer Name Role Phone Bull Cardeans MD Primary Care Provider [phone] Encounter Details Date Type Department Care Team (Late st Contact Info) Description 03/27/2024 Orders Only [facility] Scanning, Provider Social History Tobacco Use Types Packs/Day Years Used Date Smoking Tobacco: Former Cigarettes Smokeless Tobacco: Current AUDIT-C Answer Date Recorded Q1: How often do you have a drink containing alc ohol? Never 12/18/2022 Average Number of Drinks Not on file 023 Frequency of Binge Drinking Not on file 11/30 Personal Safety Answer Date Recorded Have you ever been in or are you currently in a harmful physical or emotional relationship or is someone making you feel afraid or unsafe? Denies 05/13/2023 Comments Unknown Sex and Gender Information Value Date Recorded Sex Assigned at Not on file Legal Sex Female 2:01 AM TRACTOR OPERATOR HELPER Gender Identity Not on file Sexual Orientation Not on file documented as of this encounter Plan of Treatment Not on file documented as of this encounter Procedures Procedure Name Priority Date/Time Associated Diagnosis Comments SCAN - LABS 03/27/2024 documented in this encounter Results * SCAN - LABS (03/27/2024) us Provider Scanning Final Result documented in this encounter Visit Diagnoses Not on filedocumented in this encounter Care Teams Case Repairer Relationship Specialty Start Date End Date Bull Cardenas MD [address] [facility] [place] [address] PCP - General Internal Medicine 11/17/22 documented as of this encounter
--- OUTSIDE RECORDS SUMMARY | 2024-11-03 11:41 | XMS_ITS | CONTINUITY OF CARE DOCUMENT ---
Author Name jeff, cieraser Address Unknown Organization [facility] Address [address] [place] [address] Phone [phone] Care Team Providers Care Frame Trimmer Name Role Phone Diana Torres MD Unavailable YAJAIRA WHITMORE MD Unavailable YAJAIRA WHITMORE MD Unavailable PROBLEMS Condition Status Date Provider Notes Bipolar 1 disorder active Diana Torres MD Hepatitis C active Diana Torres MD Celiac artery dilatation active Diana garcía MD UTI active Diana Torres MD Bradycardia active Diana Torres MD Abnormal electrocardiogram active Diana Torres MD Tobacco abuse active Diana Torres MD Depression active Diana Torres MD ENCOUNTERS Date Type Provider Location Encounter Diag nosis 3 - 3 In-person encounter Office Visit Diana Torres MD [place] [facility] Bipolar 1 disorderHepatitis CCeliac artery dilatationUTIBradycardiaAbnormal electrocardiogramTobacco abuseDepression VITAL SIGNS Date Observation Value Provider Body Mass Index (Ratio) 18.79 kg/m2 Abram Torres MD blood pressure, resting No Kill anny Nuno blood pressure, diastolic 78 mm[Hg] Ki llanny Nuno blood pressure, systolic 110 mm[Hg] Kil adelia Nuno oxygen saturation, oximetry 93 % Breanna respiratory rate E&M 16 /min Breanna Nuno pulse rate 75 /min Breanna Nuno weight E&M 120 [lb_av] Breanna Nuno height E&M 67 [in_i] Breanna Nuno ALLERGIES No Known Drug Allergies HISTORY OF MEDICATION USE Medication Status Instructions Dates Provider Indications Com ments PROCHLORPERAZINE MALEATE 10 MG ORAL TABLET active 1 tab needed Breanna Nuno OXYCODONE HCL 5 MG ORAL TABLET active 1 tab daily as needed Breanna Nuno DICYCLOMINE HCL 20 MG ORAL TABLET active 1 tab daily Breanna Nuno MACROBID 100 MG ORAL CAPSULE active 1 ttab daily Breanna Nuno ADDERALL 20 MG ORAL TABLET active 1 tab daily Breanna Nuno OMEPRAZOLE 20 MG ORAL CAPSULE DELAYED RELEASE active TAKE ONE CAPSULE BY MOUTH EVERY DAY Breanna Milleram #90, 90 days supply, Prescribed by DANIEL MEDINA, Filled 08/26/2016 CLONAZEPAM 1 MG ORAL TABLET active TAKE 1 TABLET BY MOUTH 3 TIMES A DAY Breanna Nuno #90, 30 days supply, Prescribed by DANIEL MEDINA, Filled 10/23/2016 VITAMIN D (ERGOCALCIFEROL) 55198 UNIT ORAL CAPSULE active TAKE ONE CAPSULE BY MOUTH ONCE WEEKLY FOR 8 WEEKS, THEN TAKE 1 CAPSULE BY MOUTH ONCE MONTHLY Breanna Milleram #4, 28 days supply, Prescribed by DANIEL MEDINA, Filled 01/17/2017 ESCITALOPRAM OXALATE 20 MG ORAL TABLET active TAKE 1 TABLET BY MOUTH EVERY DAY Breanna Nuno #90, 90 days supply, Prescribed by DANIEL MEDINA, Filled 04/27/2017 DIVALPROEX SODIUM 500 MG ORAL TABLET DELAYED RELEASE active TAKE 1 TABLET BY MOUTH 3 TIMES A DAY Breanna Nuno #90, 30 days supply, Prescribed by DANIEL MEDINA, Filled 04/27/2017 SOCIAL HISTORY Date Observation Value Provider Underweight yes Diana ann MD number of grandchildren Diana Torres MD social history reviewed E&M revi ewed - no changes required Diana Torres MD social history E&M 1ppd P atlicha currently smokes every day. Smoking History: P atient currently smokes every day. P atient has been counseled to quit. Diana Torres MD smoking/tobacco cess ation, patient education and counseling yes Diana Torres MD smoking status current every day smoker S rohith Torres MD FAMILY HISTORY Family Member Condition Mother Family History of Co ronary Artery Disease: INSURANCE PROVIDERS Payer name Policy type / Coverage type [facility] red [facility] Medicaid 1 [id number] [employer] [facility] [id number] ADVANCE DIRECTIVES Name Date POWER OF PERFORMING ARTIST TREATMENT PLAN Date Name Performer Cardiology:Will need to get cardiac workup. Nuclear stress test needs done Diana Torres MD Cardiology:Heart monitor for 2 w eeks. Diana Torres MD Date Name Mobile Cardiac Tele STR - Adenosine Sleep Study Home HISTORY OF PROCEDURES Procedure Date Procedure Name Provider Procedure Notes S tatus ZIO Event Hookup Diana ann MD completed Event Monitor Diana Torres MD completed EKG Diana Torres MD completed SNOMED-CT: [id number] Current Medications Documented Diana Torres MD completed
--- OUTSIDE RECORDS SUMMARY | 2024-11-03 11:41 | XMS_ITS | Clinical Summary ---
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 [...] Quadrivalent, Spl it, Preservative Free, Intramuscular 07/29/2020 Surgical History Surgery Date Site/Laterality Comments HIP PINNING Bilateral TONSILLECTOMY FLUORO GUIDED ASPIRATION OR INJECTION LARGE JOINT RIGHT 05/13/2023 Right FLUORO GUIDED INJECTION HIP RIGHT 10/08/2023 Right FLUORO GUIDED INJECTION HIP RIGHT 01/19/2024 Right Medical History Medical History Date Comments Food intolerance GERD (gastroesophageal reflux disease) Celiac disease Chronic kidney disease Anemia Scoliosis Chronic pain disorder Family History Medical History Relation Name Comments Breast cancer Father's Sister Broken bones Mother Hip fracture Mother Kyphosis Neg Hx Osteoporosis Neg Hx Scoliosis Neg Hx Relation Name Status Comments Father's Sister Mother Social History Tobacco Use Types Packs/Day [...] on file Legal Sex Female 2:01 AM MANAGING DIRECTOR Gender Identity Not on file Sexual Orientation Not on file Obstetrics History Para Term AB IAB SAB Ectopic Multiple Livin g Live Births 1 1 1 Date Outcome GA Total Labor Labor/2nd/3rd Weight Sex Type Anes PTL Mirian A1 A5 Name Clin Term Last Filed Vital Signs Vital Sign Reading Time Taken Comments Blood Pressure 129/79 06/21/2024 11:05 AM MANAGING DIRECTOR Pulse 72 06/21/2024 11:05 AM MANAGING DIRECTOR Temperature 36.1 C (97 F) 06/21/2024 11:05 AM MANAGING DIRECTOR Respiratory Rate 16 06/21/2024 11:05 AM MANAGING DIRECTOR Oxygen Saturation 95% 06/21/2024 11:05 AM MANAGING DIRECTOR Inhaled Oxygen Concentration - - Weight 54 kg (119 lb) 06/21/2024 11:05 AM MANAGING DIRECTOR Height 165.1 cm (5' 5 ) 06/21/2024 11:05 AM MANAGING DIRECTOR Body Mass Index 19.8 06/21/2024 11:05 AM MANAGING DIRECTOR Plan of Treatment Health Maintenance Due Date Last Done Comments Cervical Cancer Screening 1959 Colon Cancer Screening-Colonoscopy 1959 Depression Screening 1959 DTaP/Tdap/Td Vaccine (1 - Tdap) 1970 Hepatitis B Screening 1977 Pneumococcal vaccine 65+ (1 of 2 - PCV) 1978 Zoster Vaccine (1 of 2) 2009 Breast Cancer Screening-Mammogram 11/24/2023 023 Covid-19 Vaccine ( season) 2024, 11/21/2020 Well Visit 65+ 2024 Influenza Vaccine (Season Ended) 2025 07/29/20 20 Fall Risk Assessment 06/21/2025 06/21/2024, 05/31/2024, 04/11/2024 Osteoporosis Screening-Bone Density Scan 06/16/2026 06/16/2024, 11/10/2023 Hepatitis C Screening Completed 05/24/2017 Goals Goal Patient Goal Type Associated Problems Recent Progress Patient-Stated? Author CCM Chronic Pain Care Plan Chronic Care Management Nicolle Martins, RN Note: Problem: Chronic Pain Goals: 1. [...] stairs Contact your local community or [facility] for information on exercise, fall prevention programs, or options for improving home safety. Procedures Procedure Name Priority Date/Time Associated Diagnosis Comments DEXA TBS AXIAL SKELETON BONE DENSITY 1 OR MORE SITES Schedule Routine, Read Routine (OP Routine) 06/16/2024 9:10 AM MANAGING DIRECTOR Age-related osteoporosis without current pathological fracture SCREENING MAMMOGRAM BILATERAL W MAXX W IMPLANTS Schedule Routine, Read Routine (OP Routine) 11/23/2022 12:17 PM CDT Encounter for screening mammogram for malignant neoplasm of breast from Last 3 Months or Most Recently Relevant to Health Maintenance Results * Dexa TBS Axial Skeleton Bone Density 1 or more sites (06/16/2024 9:10 AM MANAGING DIRECTOR) Anatomical Region Laterality Modality Wrist, Body N/A Radiographic Tanna ging Narrative 06/19/2024 8:28 AM MANAGING DIRECTOR Patient Name: Eboni Alfred Date of : 1960 Date of scan: 06/16/2024 Bone mineral density was performed on a Holoetrigg Discovery Densitometer. Based on machine cross-calibration and [...] mineral density scan were prepared by Betsy Hannah(Brandee) CBDT who is accredited by the International Society of Clinical Densitometry. The overall patient assessment and scan interpretation were performed by Charity Alfred M.D. who is certified by the International Society of Clinical Densitometry. [id number] Charity Alfred MD [facility] DXA PROCEDURES Final R esult * Screening Mammogram Bilateral W Maxx W Implants (11/23/2022 12:17 PM CDT) Anatomical Region Laterality Modality Breast Bilateral Mammography 11/23/2022 12:3 7 PM CDT Impressions 11/23/2022 12:37 PM CDT No evidence of malignancy in either breast. FINAL ASSESSMENT: BI-RADS Category 1: Negative. RECOMMENDATION: Recommend return for annual screening mammogram in 12 months. Electronically signed by: Nola Frey M.D. Narrative 11/23/2022 12:37 PM CDT EXAMINATION: BILATERAL SCREENING [...] calcified outer border bilaterally. Bull Cardenas MD [facility] MAMMO PROCEDURES Final Re sult from Last 3 Months or Most Recently Relevant to Health Maintenance Insurance MEDICARE ADVANTAGE [facility] MEDICARE ADVANTAGE Care Teams Rn Lpn Lvn Relationship Specialty Start Date End Date Bull Cardenas MD [address] [place] [address] [place] [address] PCP - General Internal Medicine 11/17/22
--- OUTSIDE RECORDS SUMMARY | 2024-11-03 11:41 | XMS_ITS | Clinical Summary ---
Author Organization [facility] Address [address] [place] [address] Care Team Providers Care Cisco Consultant Name Role Phone None, Provider MD Primary Care Provider Unavaila ble Allergies Active Allergy Reactions Criticality Noted Date Comments Gluten Meal Nausea and Vomiting 01/17/2019 Lactose Nausea and Vomiting 01/17/2019 Medications No known medications Social History Tobacco Use Types Packs/Day Years Used Date Smoking Tobacco: Every Day Cigarettes Smokeless Tobacco: Never Alcohol Use Standard Drinks/Week Comments No 0 (1 standard drink = 0.6 oz pur e alcohol) AUDIT-C Answer Date Recorded Frequency of Alcohol Consumption Never 01/17/2019 Average Number of Drinks Not on file 019 Frequency of Binge Drinking Not on file 12/31 Comments No Sex and Gender Information Value Date Recorded Sex Assigned at Not on file Legal Sex Female 7:14 PM CDT Gender Identity Not on file Sexual Orientation Not on file Last Filed Vital Signs Vital Sign Reading Time Taken Comments Blood Pressure 128/73 01/18/2019 6:04 PM CDT Pulse 52 01/18/2019 6:04 PM CDT Temperature 36.7 C (98.1 F) 01/17/2019 11:56 AM CDT Respiratory Rate 18 01/18/2019 6:04 PM CDT Oxygen Saturation 100% 01/18/2019 6:04 PM CDT Inhaled Oxygen Concentration - - Weight 45.4 kg (100 lb) 01/17/2019 11:56 AM CDT Height 177.8 cm (5' 10 ) 01/17/2019 11:56 AM CDT Body Mass Index 14.35 01/17/2019 11:56 AM CDT Plan of Treatment Health Maintenance Due Date Last Done Comments Colorectal Cancer Screening Colonoscopy (10 Years) 1959 Pneumococcal Vaccine: 65+ Ye ars (1 of 2 - PCV) 1965 Pneumococcal Vaccine: Pediat rics (0 to 5 Years) and At-Risk Patients (6 to 64 Years) (1 of 2 - PCV) 1965 Hepatitis C 1977 DTaP, Tdap and Td Vaccines ( 1 - Tdap) 1978 Mammogram Screening 1999 Zoster Vaccines (1 of 2) 2009 COVID-19 Vaccine (1 - 2023-2 5 season) 2024 Influenza Adult (#1) 2024 Dexa Scan (General) 2024 RSV Immunization or 60+ Years (1 - 1-dose 75+ series) 2034 Meningococcal B Vaccine Aged Out No l onger eligible based on patient's age to complete this topic Meningococcal Vaccine Aged Out No marah wiley eligible based on patient's age to complete this topic RSV Immunizations Under 20 Months Aged Out No longer eligible based on patient's age to complete this topic Insurance [place]IC[place] [address] [address] [place] [id number] Care Teams Cisco Consultant Relationship Specialty Start Date End Date None, Provider, PCP - General 01/17/19
== END 2024-11-03 11:13 | disposition home or self-care (01) ==
PROVIDERS: PCP Internal Medicine; Visit Provider Internal Medicine
DX: M47.892 Other spondylosis, cervical region (principal)
CPT/HCPCS: 72050

== ENCOUNTER 2025-03-27 11:07 | Outpatient (CLI) | payer MEDICARE, SELFPAY ==
--- OUTSIDE RECORDS SUMMARY | 2014-10-17 07:25 | XMS_ITS | Continuity of Care Document ---
Author Organization [facility] Address [address] [place] [address] Phone Care Team Providers Care Repair Servicer Name Role Phone Kaitlynn Guerrero NP Unavailable Unavailable Medications Medication Instructions Dosage Effective Dates (start - stop) Status Comments Lexapro 10 mg Tab TAKE 1 TABLET BY EVERY DAY . 10 MG - Active ferrous sulfate ER 325 mg (65 mg iron) capsule,extended release take 1 tablet by oral route every day - Active Drisdol 50,000 unit capsule take 1 capsule ([id number]) by oral route every week - Active [...] Diagnoses Date Provider Providers Copied on Encounter [facility], [address], [place], [place], [address] , [place] tel: [phone] [facility] No Information 5 Cesar Calderón. [address] [facility], [facility] [address] [place], [address] . tel: [phone] [facility], [address], [place], [place], [address] , [place] tel: [phone] [facility] No Information 3 Ethan Forrester. [address] [facility], [address], [place], [place], [address] , [place]. tel: [phone] [facility], [address], [place], [place], [address] , tel: [phone] [facility] Well woman exam with routine gynecological examTobacco use disorder 3 Gail Johnson. [address] [place] [address], [address] , [place], [place], [address] , . tel: [phone] Referring Provider: Usama Long, [address] [place] [address] [address], [place], [address] [place] [address] . tel:[phone] [facility], [address], [place], [place], [address] , tel: [phone] [facility] Bipolar disorder, unspecifiedAttention deficit disorder without mention of hyperactivityTobacco use disorderCeliac diseaseEsophageal reflux 2 Ethan Forrester. [address] [place] [address], [address], [place], [place], [address] , . tel: [phone] Referring Provider: Usama Long, [address] [place] [address] [address] , [place], [address] [place] [address] . tel:[phone] [facility], [address], [place], [place], [address] , tel: [phone] [facility] Bipolar disorder, unspecifiedAttention deficit disorder without mention of hyperactivityTobacco use disorder 2 Ethan Forrester. [address] [place] [address], [address], [place], [place], [address] , . tel: [phone] [facility], [address], [place], [place], [address] , tel: [phone] [facility] No Information 2 Ethan Forrester. [address] [place] [address], [address], [place], [place], [address] , . tel: [phone] [facility], [address], [place], [place], [address] , tel: [phone] [facility] Bipolar disorder, unspecifiedAttention deficit disorder of childhood without mention of hyperactivityBipolar disorder, unspecifiedAttention deficit disorder of childhood without mention of hyperactivityTobacco use disorderTobacco use disorder 1 Ethan Forrester. [address] [facility], [address], [place], [place], [address] , [place]. tel: [phone] Referring Provider: Usama Long, [address] [place] [address] [address], [place], [address] . tel:[phone] Family History Family Member Type Diagnosis Age At Onset Problem (finding) Family history of Cance r Brother Problem (finding) diabetes melli tus in first degree relative Payers Payer name Insurance type Covered green party ID Marvin burgess(s) [employer] [id number] Social History Type Description Quantity Date Captured [...]
--- NOTE | ~2025-03-27 | XR_ITS ---
XR lumbar spine 6V w bending Indication: Dorsalgia of multiple sites Comparison: None Findings: No fracture identified, and no subluxation with flexion-extension. There is a levoconvex scoliosis. Mild osteopenia. Moderate to severe loss of disc height throughout. Soft tissues unremarkable Impression: No acute abnormality. Reviewed, dictated and finalized at location A. Impression: No acute abnormality.
--- NOTE | ~2025-03-27 | XR_ITS ---
EXAMINATION: XR thoracic spine 2V DATE: 03/27/2025 11:56 INDICATION: Back pain. Multiple sites. TECHNIQUE: 3 images of the thoracic spine were obtained. COMPARISON: Thoracic spine x-rays 09/28/2023 FINDINGS: Moderate dextroconvex curvature of the thoracic or lumbar spine similar to the prior study. No compression fracture in the thoracic spine. Degenerative change in the thoracic spine is similar to the prior study. Bones appear osteopenic which lowers sensitivity of the study. IMPRESSION: 1. No compression fracture in the thoracic spine. 2. Overall, no significant change as compared to the thoracic spine x-ray study from 09/28/2023. If symptoms persist or worsen, consider an MRI of the thoracic spine for further assessment. Reviewed, dictated and finalized at location Q. IMPRESSION: 1. No compression fracture in the thoracic spine. 2. Overall, no significant change as compared to the thoracic spine x-ray study from 09/28/2023. If symptoms persist or worsen, consider an MRI of the thoracic spine for furthe r assessment.
--- NOTE | ~2025-03-27 | XR_ITS ---
XR cervical spine 4-5V Indication: Dorsalgia of multiple sites Comparison: None Findings: No fracture identified, no subluxation with flexion and extension. Moderate to severe loss of disc height throughout. Soft tissues unremarkable Impression: No acute abnormality. Reviewed, dictated and finalized at location A. Impression: No acute abnormality.
--- OUTSIDE RECORDS SUMMARY | 2025-03-27 11:39 | XMS_ITS | Encounter Summary ---
Author Organization [facility] Address [address] [place] [address] Phone Care Team Providers Care Biazzi Nitrator Operator Name Role Phone Bull Cardenas MD Primary Care Provider [phone] Encounter Details Date Type Department Care Team [...] on file Legal Sex Female 2:01 AM FOOD AND BEVERAGE SERVICE MANAGER Gender Identity Not on file Sexual Orientation [...] on filedocumented in this encounter Care Teams Biazzi Nitrator Operator Relationship Specialty Start Date End Date Bull Cardenas MD [address] [place] [address] PCP - General Internal Medicine 11/17/22 documented as of this encounter
--- OUTSIDE RECORDS SUMMARY | 2025-03-27 11:39 | XMS_ITS | Clinical Summary ---
Author Organization [facility] Address [address] [place] [address] Care Team Providers Care Rotary Screen Printing Machine Operator Name Role Phone Bull Cardenas MD Primary Care Provider [phone] Allergies Active Allergy Reactions Criticality Noted Date [...] on file Legal Sex Female 2:01 AM MAGAZINE JOURNALIST Gender Identity Not on file Sexual Orientation Not on file Obstetrics History Para Term AB IAB SAB Ectopic Multiple Livin g Live Births 1 1 1 Date Outcome GA Total Labor Labor/2nd/3rd Weight Sex Type Anes PTL Mirian A1 A5 Name Clin Term Last Filed Vital Signs Vital Sign Reading Time Taken Comments Blood Pressure 129/79 06/21/2024 11:05 AM MAGAZINE JOURNALIST Pulse 72 06/21/2024 11:05 AM MAGAZINE JOURNALIST Temperature 36.1 C (97 F) 06/21/2024 11:05 AM MAGAZINE JOURNALIST Respiratory Rate 16 06/21/2024 11:05 AM MAGAZINE JOURNALIST Oxygen Saturation 95% 06/21/2024 11:05 AM MAGAZINE JOURNALIST Inhaled Oxygen Concentration - - Weight 54 kg (119 lb) 06/21/2024 11:05 AM MAGAZINE JOURNALIST Height 165.1 cm (5' 5) 06/21/2024 11:05 AM MAGAZINE JOURNALIST Body Mass Index 19.8 06/21/2024 11:05 AM MAGAZINE JOURNALIST Plan of Treatment Health Maintenance Due Date Last Done Comments Cervical Cancer Screening 1959 Colon Cancer Screening-Colonoscopy 1959 Depression Screening 1959 DTaP/Tdap/Td Vaccine (1 - Tdap) 1970 Hepatitis B Screening 1977 Pneumococcal vaccine 65+ (1 of 2 - PCV) 1978 Zoster Vaccine (1 of 2) 2009 Breast Cancer Screening-Mammogram 11/24/2023 023 Covid-19 Vaccine ( season) 2024, 11/21/2020 Well Visit 65+ 2024 Influenza Vaccine (#1) 2025 07/29/2020 Fall Risk Assessment 06/21/2025 06/21/2024, 05/31/2024, 04/11/2024 [...] Read Routine (OP Routine) 06/16/2024 9:10 AM MAGAZINE JOURNALIST Age-related osteoporosis without current pathological fracture SCREENING MAMMOGRAM BILATERAL W MAXX W IMPLANTS Schedule Routine, Read Routine (OP Routine) 11/23/2022 12:17 PM CDT Encounter for screening mammogram for malignant neoplasm of breast from Last 3 Months or Most Recently Relevant to Health Maintenance Results * Dexa TBS Axial Skeleton Bone Density 1 or more sites (06/16/2024 9:10 AM MAGAZINE JOURNALIST) Anatomical Region Laterality Modality Wrist, Body N/A Radiographic Tanna ging Narrative 06/19/2024 8:28 AM MAGAZINE JOURNALIST Patient Name: Eboni Alfred Date of : 1960 Date of scan: 06/16/2024 Bone mineral density was performed on a HoloAorTx Discovery Densitometer. Based on machine cross-calibration and [...] bone mineral density scan were prepared by Betys Hannah(Brandee) CBDEllie who is accredited by the International Society of Clinical Densitometry. The overall patient assessment and scan interpretation were performed by Charity Alfred M.D. who is certified by the International Society of Clinical Densitometry. [id number] Charity Alfred MD [facility] DXA PROCEDURES Final R esult * Screening [...] calcified outer border bilaterally. Bull Cardenas MD [facility] MAMMO PROCEDURES Final Re sult from Last 3 Months or Most Recently Relevant to Health Maintenance Insurance [facility] MEDICARE ADVANTAGE [facility] MEDICARE Address: [address] [address] [place] [address] IDPA [facility] MEDICARE ADVANTAGE [facility] MEDICARE Address: [address] [address] [place] [address] Care Teams Rotary Screen Printing Machine Operator Relationship Specialty Start Date End Date Bull Cardenas MD [address] [place] [address] [place] [address] PCP - General Internal Medicine 11/17/22
--- OUTSIDE RECORDS SUMMARY | 2025-03-27 11:39 | XMS_ITS | Patient Health Record ---
Author Organization [facility] [employer] Address [address] [facility] [address] [place] [address] Care Team Providers Care Teacher Of The Hearing Impaired Name Role Phone Sai Ornelas Unavailable [phone] Reason For Referral No Information Plan Of Treatment No Information
--- OUTSIDE RECORDS SUMMARY | 2025-03-27 11:39 | XMS_ITS | Clinical Summary ---
Author Organization [facility] Address [address] [place] [address] Care Team Providers Care Patent Examiner Name Role Phone Unavailable Primary Care Provider Unavailabl e Source Comments [facility],non-owned Affiliates and Associated Physician Practices is amultiple site organization consisting of ambulatory clinics and hospital sitesin [place], [place], [place] and [place]. This disclosure is being madepursuant to the Care Everywhere program and may not contain all information available regarding this patient. Last updated 18.[facility] Allergies Active Allergy Reactions Criticality Noted Date Comments Gluten Meal GI Discomfort 01/19/2019 Lactose GI Discomfort 01/19/2019 Medications * This document contains information received from the source organization and may not represent a complete record from that organization. * Be aware that medications may not be up to date on this document. Alwaysverify current medications with the patient. lansoprazole (PREVACID) 30 MG capsule Take 30 mg by mouth daily before breakfast Active LORazepam (ATIVAN) 1 MG tabletIndications:A nxiety Take 1 tablet by mouth nightly as needed for Anxiety Reasons: Feeling Anxious 30 tablet 01/26/20 19 Active mirtazapine (REMERON) 15 MG tabletIndications:M ajor Depressive Disorder Take 1 tablet by mouth at bedtime Reasons: Major Depressive Disorder 30 tablet 1 01/26/20 19 Active nicotine (NICODERM CQ) 14 MG/24HR patchIndications:Ni cotine Dependence Apply 1 patch to skin once daily Remove old patch before applying new patch. Reasons: Nicotine Addiction 15 patch 01/26/20 Active Additional Information Patient not taking.Reported on 02/01/2019 QUEtiapine (SEROQUEL) 50 MG tabletIndications:M rosas Depressive Disorder,Sleep. Take 1 tablet by mouth at bedtime Reasons: Major Depressive Disorder, Sleep. 15 tablet 01/26/20 Active iron polysaccharides (FERREX 150) 150 MG capsuleIndications: Iron deficiency anemia, unspecified iron deficiency anemia type,Abnormal weight loss Take 1 capsule by mouth once daily 30 capsule 3 02/02/20 Active loperamide (IMODIUM) 2 MG capsuleIndications: Iron deficiency anemia, unspecified iron deficiency anemia type,Abnormal weight loss Take 1 capsule by mouth 4 times daily as needed for Diarrhea 30 capsule 02/02/20 Active Active Problems Problem Noted Date Diagnosed [...] drink = 0.6 oz pur e alcohol) Comments No Sex and Gender Information Value Date Recorded Sex Assigned at Not on file Legal Sex Female 2:20 PM CDT Gender Identity Not on file [...] 9:31 AM CDT Height 177.8 cm (5' 10) 02/01/2019 9:31 AM CDT Body Mass Index [...] - COLON CA SCREENING 1960 MAMMOGRAM 1959 HIV SCREENING 1974 HEPATITIS C SCREENING 08/14/1977 DTAP/TDAP/TD VACCINES (1 - Tdap) 1978 PNEUMOCOCCAL VACCINE 50+ (1 of 2 - PCV) 1978 PAP SMEAR 1980 LUNG CANCER SCREENING 2009 ZOSTER VACCINE (1 of 2) 2009 Respiratory Syncytial Virus (RSV) Vaccine Pt: or over 60 yrs (1 - Risk 60-74 years 1-dose series) 2019 LIPID TESTING 01/24/2024 01/23/2019 COVID-19 VACCINE (1 - 2023-2 5 season) 2024 DEPRESSION SCREENING 08/02/2024 MEDICARE AWV CALENDAR YEAR 2024 INFLUENZA VACCINE (#1) 2025 HEPATITIS B VACCINE Aged Out No longe [...] (ABNORMAL) LIPID PROFILE (01/23/2019 5:59 AM CDT) Pathologist [facility] Cholesterol 73 <200 mg/dL 01/23/2019 6:53 AM CDT [facility] Triglycerides 21 <150 mg/dL 01/23/2019 6:53 AM T [facility] HDL Cholesterol 47 >40 mg/dL 9 6:53 AM T [facility] Chol HDL Ratio 1.6 1.0 - 6.0 01/23/2019 6:53 AM T [facility] LDL Calculated 22(L) 65 - 130 mg/dL 01/23/2019 6:53 AM T [facility] VLDL Calculated 4(L) 10 - 40 mg/dL 01/23/2019 6:53 AM T [facility] Blood BLOOD SPECIMEN / Unknown Lab Venipuncture / Unknown 01/23/2019 5:59 AM CDT 01/23/2019 6:06 AM CDT Narrative [facility] - 01/23/2019 6:53 AM CDT Lipid [...] AVERAGE...................>23........................>11 Hema Montoya MD LAB - CHEMISTRY ORDERABLES Final Result Performing Organization Address City/State/[facility] Co de Phone Number [facility] [address] from Last 3 Months or Most Recently Relevant to Health Maintenance Insurance [place] MEDICARE AETNA MEDICARE ADV (Work) [address] [id number] [place] [employer] Member Subscriber Plan / Payer (Ef fective 2018-Present) Name:Jesse Bryson Relation to Subscriber:Self Name:Jesse Bryson Payer ID:Not on file Type:Medicare-Managed Care Address: [address] [facility] Advance Directives * Full Code (Latest Code Status on File) Date Activated Date Inactivated Comments 01/19/2019 9:44 AM 01/25/2019 1:08 PM * Full Code Date Activated Date Inactivated Comments 01/18/2019 8:19 PM 01/19/2019 9:44 AM
== END 2025-03-27 11:08 | disposition home or self-care (01) ==
PROVIDERS: PCP Internal Medicine; Visit Provider Internal Medicine
DX: M54.9 Dorsalgia, unspecified (principal); F17.210 Nicotine dependence, cigarettes, uncomplicated; Z12.31 Encounter for screening mammogram for malignant neoplasm of breast
CPT/HCPCS: 72050; 72070; 72114

== ENCOUNTER 2025-04-09 13:41 | Outpatient (CLI) | payer MEDICARE, SELFPAY ==
--- OUTSIDE RECORDS SUMMARY | 2014-10-17 07:25 | XMS_ITS | Continuity of Care Document ---
Author Organization [facility] Address [address] [place] [address] Phone Care Team Providers Care Turbine Engine Assembler Name Role Phone Kaitlynn Guerrero NP Unavailable Unavailable Medications Medication Instructions Dosage Effective Dates (start - stop) Status Comments Lexapro 10 mg Tab TAKE 1 TABLET BY EVERY DAY . 10 MG - Active ferrous sulfate ER 325 mg (65 mg iron) capsule,extended release take 1 tablet by oral route every day - Active Drisdol 50,000 unit capsule take 1 capsule ([id number]) by oral route every week - Active Depakote ER 500 mg 24 hr Tab take 3 tablet (1500MG) by oral route every day - Active omeprazole 20 mg Cap, Delayed Release take 1 capsule (20MG) by oral route every day 20 MG - Active Advance Directives Directive Yes / No Effective Date File Name No Information Encounters Encounter Description Practice Location Reason(s) For Visit Diagnoses Date Provider Providers Copied on Encounter [facility], [address], [place], [place], [address] , [place] tel: [phone] [facility] No Information 5 Cesar Calderón. [address] [facility], [facility] [address], [place], [address] . tel: [phone] [facility], [address], [place], [place], [address] , [place] tel: [phone] [facility] No Information 3 Ethan Forrester. [address] [facility], [address], [place], [place], [address] , [place]. tel: [phone] [facility], [address], [place], [place], [address] , tel: [phone] [facility] Well woman exam with routine gynecological examTobacco use disorder 3 Gail Johnson. [address] [place] [address], [address] , [place], [place], [address] , . tel: [phone] Referring Provider: Usama Long, [address] [place] [address] [address], [place], [place], [address] [place] [address] . tel:[phone] [facility], [address], [place], [place], [address] , tel: [phone] [facility] Bipolar disorder, unspecifiedAttention deficit disorder without mention of hyperactivityTobacco use disorderCeliac diseaseEsophageal reflux 2 Ethan Forrester. [address] [place] [address], [address], [place], [place], [address] , . tel: [phone] Referring Provider: Usama Long, [address] [place] [address] [address] , [place], [place], [address] [place] [address] . tel:[phone] [facility], [address], [place], [place], [address] , tel: [phone] [facility] Bipolar disorder, unspecifiedAttention deficit disorder without mention of hyperactivityTobacco use disorder 2 Ethan Forrester. [address] [place] [address], [address], [place], [place], [address] , . tel: [phone] [facility], [address], [place], [place], [address] , tel: [phone] [facility] No Information 2 Ethan Forrester. [address] [place] [address], [address], [place], [place], [address] , . tel: [phone] [facility], [address], [place], [place], [address] , tel: [phone] [facility] Bipolar disorder, unspecifiedAttention deficit disorder of childhood without mention of hyperactivityBipolar disorder, unspecifiedAttention deficit disorder of childhood without mention of hyperactivityTobacco use disorderTobacco use disorder 1 Ethan Forrester. [address] [facility], [address], [place], [place], [address] , [place]. tel: [phone] Referring Provider: Usama Long, [address] [place] [address] [address], [place], [address] . tel:[phone] Family History Family Member Type Diagnosis Age At Onset Problem (finding) Family history of Cance r Brother Problem (finding) diabetes melli tus in first degree relative Payers Payer name Insurance type Covered green party ID Marvin burgess(s) [employer]write [id number] Social History Type Description Quantity Date Captured Comments Alcohol Use Details Unknown Caffeine Use Details Unknown Tobacco Use Status No Information Smoking Status No Information Sex Female Chief Complaint And Reason For Visit No Information Reason For Referral Reason For Referral No Information History Of Present Illness Encounter Date Complaint History Of Prese nt Illness No Information Functional Status Date Functional Assessmen t No Information Instructions Date Instruction Additional Infor mation No Information Assessments Type Assessment Date No Information Patient Care Teams Name Effective Dates (start - stop) Status Members No Information
--- NOTE | ~2025-04-09 | XR_ITS ---
EXAMINATION: XR hip BI wo pelvis, 04/09/2025 14:10 CDT HISTORY: dorsalgia of multiple sites, pain in hips COMPARISON: No comparisons available. Findings: Fixation of the left femoral neck, no acute fracture or dislocation identified. Moderate degenerative changes Soft tissues unremarkable. Impression: No acute fracture or malalignment. Reviewed, dictated and finalized at location A. Impression: No acute fracture or malalignment.
--- NOTE | ~2025-04-09 | CT_ITS ---
EXAMINATION:CT lung screening DATE: 04/09/2025 14:24 INDICATION: Cigarette smoking. TECHNIQUE: Computed tomography (CT) of the chest was performed without intravenous contrast. Automated exposure control and iterative reconstruction technique were employed. The dose-length product (DLP) was 65.27 mGy-cm. COMPARISON: Chest CT 10/27/2023 FINDINGS: There is mild scarring at the lung apices. There is mild emphysema. There is mild atelectasis bilaterally. There is mild scarring in paraspinal right lower lobe. There are scattered stable pulmonary nodules measuring up to 4 mm. There is a stable 5 mm nodule in right upper lobe. No pleural effusion. The heart size is normal. No pericardial effusion. There is a moderate-sized sliding hiatal hernia. There are bilateral breast implants. There is thoracic dextroscoliosis. IMPRESSION: 1. Lung-RADS category 2S: Benign appearance or behavior. Continue annual screening with noncontrast low-dose chest CT in 12 months. 2. Moderate-sized sliding hiatal hernia. Reviewed, dictated and finalized at location E. IMPRESSION: 1. Lung-RADS category 2S: Benign appearance or behavior. Continue annual screen ing with noncontrast low-dose chest CT in 12 months. 2. Moderate-sized sliding hiatal hernia.
--- OUTSIDE RECORDS SUMMARY | 2025-04-09 13:43 | XMS_ITS | Clinical Summary ---
Author Organization [facility] Address [address] [facility] [place] [address] Care Team Providers Care Extractions Technician Name Role Phone Unavailable Primary Care Provider Unavailabl e Source Comments [facility],non-owned Affiliates and Associated Physician Practices is amultiple site organization consisting of ambulatory clinics and hospital sitesin [place], [place], [place] and [place]. This disclosure is being madepursuant to the Care Everywhere program and may not contain all information available regarding this patient. Last updated 18.[facility] Allergies Active Allergy Reactions Criticality Noted Date [...] LIPID PROFILE (01/23/2019 5:59 AM CDT) Pathologist [facility] Cholesterol 73 <200 mg/dL 01/23/2019 6:53 AM CDT [facility] Triglycerides 21 <150 mg/dL 01/23/2019 6:53 AM T [facility] HDL Cholesterol 47 >40 mg/dL 9 6:53 AM T [facility] Chol HDL Ratio 1.6 1.0 - 6.0 01/23/2019 6:53 AM T [facility] LDL Calculated 22(L) 65 - 130 mg/dL 01/23/2019 6:53 AM T [facility] VLDL Calculated 4(L) 10 - 40 mg/dL 01/23/2019 6:53 AM T [facility] Blood BLOOD SPECIMEN / Unknown Lab Venipuncture / Unknown 01/23/2019 5:59 AM CDT 01/23/2019 6:06 AM CDT Narrative [facility] - 01/23/2019 6:53 AM CDT [...] CHEMISTRY ORDERABLES Final Result Performing Organization Address City/State/[facility] Co de Phone Number [facility] [address] from Last 3 Months or Most Recently Relevant to Health Maintenance Insurance [place] MEDICARE AETNA MEDICARE ADV (Work) [address] [id number] [employer] Member Subscriber Plan / Payer (Ef fective 2018-Present) Name:Jesse Bryson Relation to Subscriber:Self Name:Jesse Bryson Payer ID:Not on file Type:Medicare-Managed Care Address: [address] [facility] Advance Directives * Full Code (Latest Code Status on File) Date Activated Date Inactivated Comments 01/19/2019 9:44 AM 01/25/2019 1:08 PM * Full Code Date Activated Date Inactivated Comments 01/18/2019 8:19 PM 01/19/2019 9:44 AM
--- OUTSIDE RECORDS SUMMARY | 2025-04-09 13:43 | XMS_ITS | Encounter Summary ---
Author Organization [facility] Address [address] [place] [address] Phone Care Team Providers Care Shrink Pit Supervisor Name Role Phone Bull Cardenas MD Primary Care Provider [phone] Encounter Details Date Type Department Care Team [...] on file Legal Sex Female 2:01 AM COOLING PAN TENDER Gender Identity Not on file Sexual Orientation [...] on filedocumented in this encounter Care Teams Shrink Pit Supervisor Relationship Specialty Start Date End Date Bull Cardenas MD [address] [facility] [place] [address] PCP - General Internal Medicine 11/17/22 documented as of this encounter
--- OUTSIDE RECORDS SUMMARY | 2025-04-09 13:43 | XMS_ITS | Clinical Summary ---
Author Organization [facility] Address [address] [place] [address] Care Team Providers Care Addressing Machine Operator Name Role Phone None, Provider MD Primary [...] 11:56 AM CDT Height 177.8 cm (5' 10) 01/17/2019 11:56 AM CDT Body Mass Index 14.35 01/17/2019 11:56 AM CDT Plan of Treatment Health Maintenance Due Date Last Done Comments Colorectal Cancer Screening Colonoscopy (10 Years) 1959 Hepatitis C 1977 DTaP, Tdap and Td Vaccines ( 1 - Tdap) 1978 Pneumococcal Vaccine: 50+ Ye ars (1 of 2 - PCV) 1978 Mammogram Screening 1999 Zoster Vaccines (1 of 2) 2009 Dexa Scan (General) 2024 COVID-19 Vaccine (1 - 2023-2 5 season) 2025 RSV Immunization or 60+ Years (1 - [...] age to complete this topic Insurance MEDICARE Care Teams Addressing Machine Operator Relationship Specialty Start Date End Date None, Provider, PCP - General 01/17/19
--- OUTSIDE RECORDS SUMMARY | 2025-04-09 13:44 | XMS_ITS | Patient Health Record ---
Author Organization [facility] Address [address] [facility] [address] [place] [address] Care Team Providers Care Tanning Drum Operator Name Role Phone Sai rOnelas Unavailable [phone] Reason For Referral No Information Plan Of Treatment No Information
--- OUTSIDE RECORDS SUMMARY | 2025-04-09 13:44 | XMS_ITS | Clinical Summary ---
Author Organization [facility] Address [address] [place] [address] Care Team Providers Care Marketing Support Assistant Name Role Phone Bull Cardenas MD Primary Care Provider [phone] Allergies Active Allergy Reactions Criticality Noted Date [...] on file Legal Sex Female 2:01 AM SALES AND MERCHANDISING REPRESENTATIVE Gender Identity Not on file Sexual Orientation Not on file Obstetrics History Para Term AB IAB SAB Ectopic Multiple Livin g Live Births 1 1 1 Date Outcome GA Total Labor Labor/2nd/3rd Weight Sex Type Anes PTL Mirian A1 A5 Name Clin Term Last Filed Vital Signs Vital Sign Reading Time Taken Comments Blood Pressure 129/79 06/21/2024 11:05 AM SALES AND MERCHANDISING REPRESENTATIVE Pulse 72 06/21/2024 11:05 AM SALES AND MERCHANDISING REPRESENTATIVE Temperature 36.1 C (97 F) 06/21/2024 11:05 AM SALES AND MERCHANDISING REPRESENTATIVE Respiratory Rate 16 06/21/2024 11:05 AM SALES AND MERCHANDISING REPRESENTATIVE Oxygen Saturation 95% 06/21/2024 11:05 AM SALES AND MERCHANDISING REPRESENTATIVE Inhaled Oxygen Concentration - - Weight 54 kg (119 lb) 06/21/2024 11:05 AM SALES AND MERCHANDISING REPRESENTATIVE Height 165.1 cm (5' 5) 06/21/2024 11:05 AM SALES AND MERCHANDISING REPRESENTATIVE Body Mass Index 19.8 06/21/2024 11:05 AM SALES AND MERCHANDISING REPRESENTATIVE Plan of Treatment Health Maintenance Due Date Last Done Comments Cervical Cancer Screening 1959 Colon Cancer Screening-Colonoscopy 1959 Depression Screening 1959 DTaP/Tdap/Td Vaccine (1 - Tdap) 1970 Hepatitis B Screening 1977 Pneumococcal vaccine 65+ (1 of 2 - PCV) 1978 Zoster Vaccine (1 of 2) 2009 Breast Cancer Screening-Mammogram 11/24/2023 023 Well Visit 65+ 2024 Covid-19 Vaccine ( season) 2025, 11/21/2020 Influenza Vaccine (#1) 2025 07/29/2020 Fall Risk [...] Read Routine (OP Routine) 06/16/2024 9:10 AM SALES AND MERCHANDISING REPRESENTATIVE Age-related osteoporosis without current pathological fracture SCREENING MAMMOGRAM BILATERAL W MAXX W IMPLANTS Schedule Routine, Read Routine (OP Routine) 11/23/2022 12:17 PM CDT Encounter for screening mammogram for malignant neoplasm of breast from Last 3 Months or Most Recently Relevant to Health Maintenance Results * Dexa TBS Axial Skeleton Bone Density 1 or more sites (06/16/2024 9:10 AM SALES AND MERCHANDISING REPRESENTATIVE) Anatomical Region Laterality Modality Wrist, Body N/A Radiographic Tanna ging Narrative 06/19/2024 8:28 AM SALES AND MERCHANDISING REPRESENTATIVE Patient Name: Eboni Alfred Date of : 1960 Date of scan: 06/16/2024 Bone mineral density was performed on a HoloOberon Space Discovery Densitometer. Based on machine cross-calibration and [...] density scan were prepared by Betsy Hannah(Brandee) CBDEllie who is accredited by the International Society of Clinical Densitometry. The overall patient assessment and scan interpretation were performed by Charity Alfred M.D. who is certified by the International Society of Clinical Densitometry. [id number] Charity Alfred MD [facility] DXA PROCEDURES Final R esult * Screening [...] calcified outer border bilaterally. Bull Cardenas MD [facility] MAMMO PROCEDURES Final Re sult from Last 3 Months or Most Recently Relevant to Health Maintenance Insurance [facility] MEDICARE ADVANTAGE IDPA [facility] MEDICARE ADVANTAGE Care Teams Marketing Support Assistant Relationship Specialty Start Date End Date Bull Cardenas MD [address] [place] [address] [place] [address] PCP - General Internal Medicine 11/17/22
== END 2025-04-09 13:42 | disposition home or self-care (01) ==
LOC: ANHIMG 13:42
PROVIDERS: PCP Internal Medicine; Visit Provider Internal Medicine
DX: F17.210 Nicotine dependence, cigarettes, uncomplicated (principal); M54.9 Dorsalgia, unspecified; K44.9 Diaphragmatic hernia without obstruction or gangrene
CPT/HCPCS: 71271; 73521

== ENCOUNTER 2025-05-12 03:27 | Emergency (ER) | payer MEDICARE, SELFPAY ==
--- NOTE | ~2025-05-12 | CT_ITS ---
CT HEAD NON-CONTRAST Clinical History: BELTRÁN Comparison: 08/05/2020 Technique: Unenhanced axial images skull base to vertex Coronal, sagittal reformats CT images acquired with automatic exposure control for dose reduction DLP: 681 mGy-cm Findings: Sulci, ventricles: Unremarkable. No intracerebral hemorrhage. No evidence acute territorial infarct. No mass effect, midline shift. Bony calvarium intact. Visualized paranasal sinuses: Clear. Mastoid air cells: Clear. IMPRESSION: 1. No acute intracranial findings. Reviewed, dictated and finalized at location R.
--- NOTE | ~2025-05-12 | XR_ITS ---
Examination: XR chest 1V Clinical History: Viral syndrome Comparison: 09/16/2020 Technique: Portable AP Findings: Heart size normal. Emphysema. No focal airspace consolidation. Mild scattered scarring. No acute bony abnormality. Scoliosis. Breast implant capsular calcifications. IMPRESSION: 1. No acute cardiopulmonary findings given portable technique. Reviewed, dictated and finalized at location R.
--- OUTSIDE RECORDS SUMMARY | 2025-05-12 03:29 | XMS_ITS | Clinical Summary ---
Author Organization [facility] Address [address] [facility] [place] [address] Care Team Providers Care Roll Forming Machine Operator Name Role Phone Unavailable Primary Care Provider Unavailabl e Source Comments [facility],non-owned Affiliates and Associated Physician Practices is amultiple site organization consisting of ambulatory clinics and hospital sitesin [place], [place] and [place]. This disclosure is being madepursuant to the Care Everywhere program and may not contain all information available regarding this patient. Last updated 18.[facility] Allergies Active Allergy Reactions Criticality Noted Date [...] 1-dose series) 2019 LIPID TESTING 01/24/2024 01/23/2019 DEPRESSION SCREENING 08/02/2024 MEDICARE AWV CALENDAR YEAR 2024 COVID-19 VACCINE (1 - 2023-2 5 season) 2025 INFLUENZA VACCINE (#1) 2025 HEPATITIS B VACCINE [...] LIPID PROFILE (01/23/2019 5:59 AM CDT) Pathologist [facility] Cholesterol 73 <200 mg/dL 01/23/2019 6:53 AM CDT [facility] Triglycerides 21 <150 mg/dL 01/23/2019 6:53 AM T [facility] HDL Cholesterol 47 >40 mg/dL 9 6:53 AM T [facility] Chol HDL Ratio 1.6 1.0 - 6.0 01/23/2019 6:53 AM T [facility] LDL Calculated 22(L) 65 - 130 mg/dL 01/23/2019 6:53 AM T [facility] VLDL Calculated 4(L) 10 - 40 mg/dL 01/23/2019 6:53 AM T [facility] Blood BLOOD SPECIMEN / Unknown Lab Venipuncture / Unknown 01/23/2019 5:59 AM CDT 01/23/2019 6:06 AM CDT Narrative [facility] - 01/23/2019 6:53 AM CDT Lipid [...] CHEMISTRY ORDERABLES Final Result Performing Organization Address City/State/[facility] Co de Phone Number [facility] [address] from Last 3 Months or Most Recently Relevant to Health Maintenance Insurance [place] MEDICARE AETNA MEDICARE ADV (Work) [address] [id number] [place] MEDICARE Member Subscriber Plan / Payer (Ef fective 2018-Present) Name:Jesse Bryson Relation to Subscriber:Self Name:Jesse Bryson Payer ID:Not on file Type:Medicare-Managed Care Address: [address] [facility] Advance Directives * Full Code (Latest Code Status on File) Date Activated Date Inactivated Comments 01/19/2019 9:44 AM 01/25/2019 1:08 PM * Full Code Date Activated Date Inactivated Comments 01/18/2019 8:19 PM 01/19/2019 9:44 AM
--- OUTSIDE RECORDS SUMMARY | 2025-05-12 03:29 | XMS_ITS | Clinical Summary ---
Author Organization [facility] Address [address] [place] [address] Care Team Providers Care Per Diem Registered Nurse Name Role Phone Bull Cardenas MD Primary Care Provider [phone] Allergies Active Allergy Reactions Criticality Noted Date [...] on file Legal Sex Female 2:01 AM FUEL CELL SYSTEMS ENGINEER Gender Identity Not on file Sexual Orientation Not on file Obstetrics History Para Term AB IAB SAB Ectopic Multiple Livin g Live Births 1 1 1 Date Outcome GA Total Labor Labor/2nd/3rd Weight Sex Type Anes PTL Mirian A1 A5 Name Clin Term Last Filed Vital Signs Vital Sign Reading Time Taken Comments Blood Pressure 129/79 06/21/2024 11:05 AM FUEL CELL SYSTEMS ENGINEER Pulse 72 06/21/2024 11:05 AM FUEL CELL SYSTEMS ENGINEER Temperature 36.1 C (97 F) 06/21/2024 11:05 AM FUEL CELL SYSTEMS ENGINEER Respiratory Rate 16 06/21/2024 11:05 AM FUEL CELL SYSTEMS ENGINEER Oxygen Saturation 95% 06/21/2024 11:05 AM FUEL CELL SYSTEMS ENGINEER Inhaled Oxygen Concentration - - Weight 54 kg (119 lb) 06/21/2024 11:05 AM FUEL CELL SYSTEMS ENGINEER Height 165.1 cm (5' 5) 06/21/2024 11:05 AM FUEL CELL SYSTEMS ENGINEER Body Mass Index 19.8 06/21/2024 11:05 AM FUEL CELL SYSTEMS ENGINEER Plan of Treatment Health Maintenance Due Date [...] Read Routine (OP Routine) 06/16/2024 9:10 AM FUEL CELL SYSTEMS ENGINEER Age-related osteoporosis without current pathological fracture SCREENING MAMMOGRAM BILATERAL W MAXX W IMPLANTS Schedule Routine, Read Routine (OP Routine) 11/23/2022 12:17 PM CDT Encounter for screening mammogram for malignant neoplasm of breast from Last 3 Months or Most Recently Relevant to Health Maintenance Results * Dexa TBS Axial Skeleton Bone Density 1 or more sites (06/16/2024 9:10 AM FUEL CELL SYSTEMS ENGINEER) Anatomical Region Laterality Modality Wrist, Body N/A Radiographic Tanna ging Narrative 06/19/2024 8:28 AM FUEL CELL SYSTEMS ENGINEER Patient Name: Eboni Alfred Date of : 1960 Date of scan: 06/16/2024 Bone mineral density was performed on a HoloPurewine Discovery Densitometer. Based on machine cross-calibration and [...] by the International Society of Clinical Densitometry. [id number] Charity lAfred MD [facility] DXA PROCEDURES Final R esult * Screening [...] calcified outer border bilaterally. Bull Cardenas MD [facility] MAMMO PROCEDURES Final Re sult from Last 3 Months or Most Recently Relevant to Health Maintenance Insurance [facility] MEDICARE ADVANTAGE IDPA [facility] MEDICARE ADVANTAGE Care Teams Per Diem Registered Nurse Relationship Specialty Start Date End Date Bull Cardenas MD [address] [place] [address] [place] [address] PCP - General Internal Medicine 11/17/22
--- OUTSIDE RECORDS SUMMARY | 2025-05-12 03:29 | XMS_ITS | Encounter Summary ---
Author Organization [facility] Address [address] [place] [address] Phone Care Team Providers Care Curtain Hemmer Automatic Name Role Phone Bull Cardenas MD Primary Care Provider [phone] Encounter Details Date Type Department Care Team [...] on file Legal Sex Female 2:01 AM BIT GRINDER Gender Identity Not on file Sexual Orientation [...] on filedocumented in this encounter Care Teams Curtain Hemmer Automatic Relationship Specialty Start Date End Date Bull Cardenas MD [address] [facility] [place] [address] PCP - General Internal Medicine 11/17/22 documented as of this encounter
--- OUTSIDE RECORDS SUMMARY | 2025-05-12 03:29 | XMS_ITS | Patient Health Record ---
Author Organization [facility] [employer] Address [address] [facility] [address] [place] [address] Care Team Providers Care Furniture Detailer Name Role Phone Sai Ornelas Unavailable [phone] Reason For Referral No Information Plan Of Treatment No Information
[2025-05-12 03:34] VITALS: BP 126/66; PULSE 99; RESP 19; TEMP 36.4; O2SAT 100
--- OUTSIDE RECORDS SUMMARY | 2025-05-12 07:14 | XMS_ITS | Clinical Summary ---
Author Organization [facility] Address [address] [place] [address] Care Team Providers Care Family Member Caretaker Name Role Phone Unavailable Primary Care Provider Unavailabl e Source Comments [facility],non-owned Affiliates and Associated Physician Practices is amultiple site organization consisting of ambulatory clinics and hospital sitesin [place], [place], [place] and [place]. This disclosure is being madepursuant to the Care Everywhere program and may not contain all information available regarding this patient. Last updated 18.[facility] Allergies Active Allergy Reactions Criticality Noted Date [...] 73 <200 mg/dL 01/23/2019 6:[address] [facility] Triglycerides 21 <150 mg/dL 01/23/2019 6:[address] [facility] HDL Cholesterol 47 >40 mg/dL 9 6:[address] [facility] Chol HDL Ratio 1.6 1.0 - 6.0 01/23/2019 6:[address] [facility] LDL Calculated 22(L) 65 - 130 mg/dL 01/23/2019 6:[address] [facility] VLDL Calculated 4(L) 10 - 40 mg/dL 01/23/2019 6:[address] [facility] Blood BLOOD SPECIMEN / Unknown Lab Venipuncture / Unknown 01/23/2019 5:59 AM CDT 01/23/2019 6:[address] [facility] - 01/23/2019 6:53 AM CDT Lipid [...] AVERAGE.................. 9.5 ...................... 7.0 3X AVERAGE...................>23........................>11 Hema oMntoya MD LAB - CHEMISTRY ORDERABLES Final Result Performing Organization Address City/State/[facility] Co de Phone Number [facility] [address] from Last 3 Months or Most Recently Relevant to Health Maintenance Insurance [place] MEDICARE AETNA MEDICARE ADV (Work) [address] [id number] [place] [employer] Member Subscriber Plan / Payer (Ef fective 2018-Present) Name:Jesse Bryson Relation to Subscriber:Self Name:Jesse Bryson Payer ID:Not on file Type:Medicare-Managed Care Address: [address] [facility] Advance Directives * Full Code (Latest Code Status on File) Date Activated Date Inactivated Comments 01/19/2019 9:44 AM 01/25/2019 1:08 PM * Full Code Date Activated Date Inactivated Comments 01/18/2019 8:19 PM 01/19/2019 9:44 AM
--- OUTSIDE RECORDS SUMMARY | 2025-05-12 07:14 | XMS_ITS | Encounter Summary ---
Author Organization [facility] Address [address] [place] [address] Phone Care Team Providers Care Model Home Sales Greeter Name Role Phone Bull Cardenas MD Primary Care Provider [phone] Encounter Details Date Type Department Care Team [...] on file Legal Sex Female 2:01 AM DIAL MARKER Gender Identity Not on file Sexual Orientation [...] on filedocumented in this encounter Care Teams Model Home Sales Greeter Relationship Specialty Start Date End Date Bull Cardenas MD [address] [facility] [place] [address] PCP - General Internal Medicine 11/17/22 documented as of this encounter
--- OUTSIDE RECORDS SUMMARY | 2025-05-12 07:15 | XMS_ITS | Clinical Summary ---
Author Organization [facility] Address [address] [place] [address] Care Team Providers Care Sports Equipment Racker Name Role Phone Bull Cardenas MD Primary Care Provider [phone] Allergies Active Allergy Reactions Criticality Noted Date [...] Active CALCIUM ORAL Take by mouth Act chlaino multivit with minerals/lutein (MULTIVITAMIN 50 PLUS ORAL) [...] on file Legal Sex Female 2:01 AM PLACEMENT COORDINATOR Gender Identity Not on file Sexual Orientation Not on file Obstetrics History Para Term AB IAB SAB Ectopic Multiple Livin g Live Births 1 1 1 Date Outcome GA Total Labor Labor/2nd/3rd Weight Sex Type Anes PTL Mirian A1 A5 Name Clin Term Last Filed Vital Signs Vital Sign Reading Time Taken Comments Blood Pressure 129/79 06/21/2024 11:05 AM PLACEMENT COORDINATOR Pulse 72 06/21/2024 11:05 AM PLACEMENT COORDINATOR Temperature 36.1 C (97 F) 06/21/2024 11:05 AM PLACEMENT COORDINATOR Respiratory Rate 16 06/21/2024 11:05 AM PLACEMENT COORDINATOR Oxygen Saturation 95% 06/21/2024 11:05 AM PLACEMENT COORDINATOR Inhaled Oxygen Concentration - - Weight 54 kg (119 lb) 06/21/2024 11:05 AM PLACEMENT COORDINATOR Height 165.1 cm (5' 5) 06/21/2024 11:05 AM PLACEMENT COORDINATOR Body Mass Index 19.8 06/21/2024 11:05 AM PLACEMENT COORDINATOR Plan of Treatment Health Maintenance Due Date [...] Read Routine (OP Routine) 06/16/2024 9:10 AM PLACEMENT COORDINATOR Age-related osteoporosis without current pathological fracture SCREENING MAMMOGRAM BILATERAL W MAXX W IMPLANTS Schedule Routine, Read Routine (OP Routine) 11/23/2022 12:17 PM CDT Encounter for screening mammogram for malignant neoplasm of breast from Last 3 Months or Most Recently Relevant to Health Maintenance Results * Dexa TBS Axial Skeleton Bone Density 1 or more sites (06/16/2024 9:10 AM PLACEMENT COORDINATOR) Anatomical Region Laterality Modality Wrist, Body N/A Radiographic Tanna ging Narrative 06/19/2024 8:28 AM PLACEMENT COORDINATOR Patient Name: Eboni Alfred Date of : 1960 Date of scan: 06/16/2024 Bone mineral density was performed on a Holo[employer] Discovery Densitometer. Based on machine cross-calibration and [...] by the International Society of Clinical Densitometry. [id number] Charity [place] MD [facility] [place] Final R esult * Screening [...] border bilaterally. Bull Cardenas MD [facility] [place]ED[place] Final Re sult from Last 3 Months or Most Recently Relevant to Health Maintenance Insurance [facility] Address: [address] [address] [place] [address] [employer] [facility] MEDICARE [facility] Address: [address] [address] [place] [address] Care Teams Sports Equipment Racker Relationship Specialty Start Date End Date Bull Cardenas MD [address] [place] [address] [place] [address] PCP - General Internal Medicine 11/17/22
[2025-05-12 08:25] LABS: Hematocrit 43.6 % (37.0-47.0); Hemoglobin 14.1 g/dL (12.0-15.0); Immature Granulocyte Percent A 0.5 % (0-0.5); Immature Platelet Fraction Pct 4.9 % (0.9-11.2); Lymphocytes Absolute Auto 1.25 K/mm3 (0.9-3.2); Mean Corpuscular HGB Conc 32.3 g/dl (32-36); Mean Corpuscular Hemoglobin 29.7 pg (26-34); Mean Corpuscular Volume 91.8 fl (80-100); Nucleated Red Blood Cells Absolute Auto 0.000 K/mm3 (0.0-0.012); Nucleated Red Blood Cells Perc 0.0 % (0.0-0.2); Platelet Count Result 286 k/mm3 (150-375); Red Blood Count 4.75 M/mm3 (4.2-5.4); White Blood Count 10.2 K/mm3 (4.5-10.0)
[2025-05-12] MEDS: SODIUM CHLORIDE 0.9% IV 1,000 ML 999 ML IV CONT (08:25)
[2025-05-12] MEDS: KETOROLAC 15 MG/ML VIAL (*BKC) IV PUSH (08:25)
[2025-05-12] MEDS: ACETAMINOPHEN 500 MG TABLET 1000 MG PO (08:26)
[2025-05-12 08:58] LABS: Influenza A QL RT-PCR Negative (Negative); Influenza B QL RT-PCR Negative (Negative); RSV RNA, RT-PCR Negative (Negative); SARS-CoV-2 RNA PCR Negative (Negative)
[2025-05-12 09:02] LABS: Anisocytosis 1+; Burr Cells 1+; Schistocytes Occasional
[2025-05-12 09:15] VITALS: BP 112/72; PULSE 61; RESP 14; O2SAT 99
--- NOTE | 2025-05-12 09:38 | ED_ITS ---
HPI - General Adult General Chief complaint: Headache Stated complaint: BELTRÁN, pain all over, not feeling well Time Seen by Provider: 05/12/25 06:51 History of Present Illness HPI narrative: This is a 64-year-old female history of chronic opiate use presenting for flu- like symptoms. For last week she has been having fevers body ache and headache. She also has some chest pain on does deep inspiration. No shortness of breath at rest. No productive cough. No neurologic deficits or visual changes. No abdominal pain nausea vomiting or diarrhea. Related Data Home Medications ?Medication ?Instructions ?Recorded ?Confirmed ?Last Taken ?Type dicyclomine 10 mg capsule 10 mg PO TID PRN Abdominal 0 09/07/20 03/29/23 Unknown History Discomfort buspirone 10 mg tablet 10 mg PO DAILY 03/29/2303/03 Unknown History ferrous sulfate 325 mg (65 mg 65 mg PO DAILY 03/29/23 03/29/23 Unknown History iron) tablet furosemide 40 mg tablet 40 mg PO DAILY 03/29/2303/03 Unknown History hydroxyzine HCl 25 mg tablet 25 mg PO DAILY 03/29/23 0 03/29/23 Unknown History Allergies Allergy/AdvReac Type Severity Reaction Status Date / Time bacitracin (From Neosporin Allergy Rash Verified 05/12/25 03:39 ([id number])) Bleach (Sodium Hypochlorite) Allergy Rash Verified 05/12/25 03:39 latex Allergy Rash Verified 05/12/25 03:39 neomycin (From Neosporin Allergy Rash Verified 05/12/25 03:39 ([id number])) polymyxin B (From Neosporin Allergy Rash Verified 05/12/25 03:39 ([id number])) [facility] Past Medical History Medical History (Updated 05/12/25 @ 11:25 by Aki Buchanan MD) Colon cancer screening CKD (chronic kidney disease) III Esophageal varices 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 Tobacco abuse Chronic anemia COPD with emphysema Closed right hip fracture (~06/2019) Presented with subacute fracture, treated nonsurgically. GI bleed (~01/2019) Hospitalized at [facility]. Patient reports upper GI bleed, unsure whether it was due to an ulcer or varices however she denies history of cirrhosis. Esophageal stricture Status post dilatation. History of self mutilation Vitiligo Closed left hip fracture Status post ORIF. Gastroesophageal reflux disease Vitamin D deficiency Microcytic anemia Cellulitis of left lower leg (~06/2019) Chronic back pain Anxiety Depression Borderline personality disorder Bipolar disorder Surgical History Surgical History History of hip surgery Left hip fracture ORIF. History of tonsillectomy History of breast augmentation Family History Family History Mother Family history of diabetes mellitus in first degree relative Family history of malignant neoplasm of brain Diabetes mellitus Hypertension Cerebrovascular accident Sibling Family history of malignant neoplasm Family history of diabetes mellitus in first degree relative Diabetes mellitus Father Family history of malignant neoplasm of bone Other Family history of alcoholism Family history of mental disorder Social History Social History Social History: Surrogate decision maker: Aki Paul, friend. Code status: Full code. Smoking packs per day: 1 Smoking cigarettes per day: 20.0 Years smoked: 40 Smoking pack-years: 40.00 Smoking status: Current every day smoker Tobacco type: e-cigarettes/vaping Second hand tobacco smoke exposure: No Alcohol intake: former Alcohol use details: History of alcoholism, has reportedly abstained for several years. Substance use: former Substance use type: crack/cocaine, heroin and opiates Other substance usage details: clean for over a year Last use: 08/02/19 Additional living arrangements comments: She lives in [place] with 2 roommates. Additional occupation/education comments: On disability. Gender identity (if verbalized by the patient): Female Spiritual care concerns: No Agree to blood products: Yes Exam 2 Narrative: APPEARANCE: No apparent distress. Well appearing overall Head: atraumatic. EYES: EOMI, NOSE: Atraumatic NECK: Trachea midline, supple, no meningismus RESPIRATORY: No increased rate of breathing clear to auscultation CARDIOVASCULAR: RRR, no peripheral edema ABDOMINAL: Non-distended soft nontender MUSCULOSKELETAl: No obvious deformities NEURO: Alert. Cranial nerves 2-12 grossly intact. Sensation light touch, motor function cerebellar function intact for 4 extremities. Gait exam was normal. SKIN:: Warm, dry. Normal color PSYCHIATRIC: Normal affect Course Vital Signs Vital signs: Vital Signs Temperature 97.6 F 05/12/25 03:34 Pulse Rate 99 05/12/25 03:34 Respiratory Rate 19 05/12/25 03:34 Blood Pressure 126/66 05/12/25 03:34 Pulse Oximetry 100 05/12/25 03:34 Oxygen Delivery Room Air 05/12/25 03:34 Temperature 97.6 F 05/12/25 03:34 Pulse Rate 61 05/12/25 09:15 Respiratory Rate 14 05/12/25 09:15 Blood Pressure 112/72 05/12/25 09:15 Pulse Oximetry 99 05/12/25 09:15 Oxygen Delivery Room Air 05/12/25 03:34 Medical Decision Making MDM Narrative Medical decision making narrative: -Course: 64-year-old female presenting with viral symptoms. Vital signs are stable. Physical exam is unremarkable. Neurologic exam is normal. Laboratory studies within normal limits. Viral swabs were negative. Chest X x-ray without acute cardiopulmonary process. CT head negative for acute intracranial findings. Presentation most consistent with a viral syndrome. Patient's headache body aches were treated. She will be discharged follow-up with her primary care physician. Given return precautions. -DDX includes but is not limited to: Viral syndrome, pneumonia, COVID, flu intracranial hemorrhage, opiate withdrawal -Co-morbidities complicating care: Chronic opiate use -Social determinants of health: Daily oxycodone use Laboratory studies reviewed. Patient has a slight JIMY. She has received fluid resuscitation here. Patient can follow-up with primary care physician for repeat laboratory studies. She has been encouraged to drink plenty of fluids when she gets home. Independent EKG interpretation: Rhythm [sinus], Rate [559], [place] -[normal], RI -[normal], QRS [narrow], QTC [normal], T waves -[negative for concerning inversions], ST Segments - [Negative for concerning elevations] Final interpretations: [Normal Sinus Rhythm] Vital Signs Vital Signs: Vital Signs Temperature 97.6 F 05/12/25 03:34 Pulse Rate 99 05/12/25 03:34 Respiratory Rate 19 05/12/25 03:34 Blood Pressure 126/66 05/12/25 03:34 Pulse Oximetry 100 05/12/25 03:34 Oxygen Delivery Room Air 05/12/25 03:34 Temperature 97.6 F 05/12/25 03:34 Pulse Rate 61 05/12/25 09:15 Respiratory Rate 14 05/12/25 09:15 Blood Pressure 112/72 05/12/25 09:15 Pulse Oximetry 99 05/12/25 09:15 Oxygen Delivery Room Air 05/12/25 03:34 Lab Data 05/12/25 08:16 05/12/25 08:16 Labs: Lab Results 05/12/25 Range/Units 08:16 WBC 10.2 H (4.5-10.0) K/mm3 RBC 4.75 (4.2-5.4) M/mm3 Hgb 14.1 D (12.0-15.0) g/dL Hct 43.6 (37.0-47.0) % MCV 91.8 (80-100) fl MCH 29.7 (26-34) pg MCHC 32.3 (32-36) g/dl RDW 13.7 (11.5-14.5) % Plt Count 286 (150-375) k/mm3 MPV 10.5 H (7.4-10.4) fl Immature Gran % (Auto) 0.5 (0-0.5) % Neut % (Auto) 78.2 H (45.5-73.1) % Lymph % (Auto) 12.3 L (18.3-44.2) % [place] % (Auto) 7.9 (2.6-8.5) % Eos % (Auto) 0.4 (0-4.4) % Baso % (Auto) 0.7 (0.2-1.2) % Lymph # (Auto) 1.25 (0.9-3.2) K/mm3 [place] # (Auto) 0.8 H (0.1-0.6) K/mm3 Eos # (Auto) 0.0 (0-0.3) K/mm3 Baso # (Auto) 0.1 (0.0-0.1) K/mm3 Abs Immat Gran (auto) 0.05 H (0.00-0.031) K/mm3 Absolute Neuts (auto) 8.0 H (1.3-6.7) K/mm3 Absolute Nucleated RBC 0.000 (0.0-0.012) K/mm3 Band Neutrophils % Not Reportable Nucleated RBC % 0.0 (0.0-0.2) % Platelet Estimate Adequate (Adequate) % Immature Plt Fraction 4.9 (0.9-11.2) % Anisocytosis 1+ Mati Cells 1+ Schistocytes Occasional Sodium Pending Potassium Pending Chloride Pending Carbon Dioxide Pending Anion Gap Pending BUN Pending Creatinine Pending Estim Creat Clear Calc Pending Estimated GFR Pending Glucose Pending Calcium Pending Total Bilirubin Pending AST Pending ALT Pending Alkaline Phosphatase Pending Total Protein Pending Albumin Pending Influenza A (RT-PCR) Negative (Negative) Influenza B (RT-PCR) Negative (Negative) RSV (RT-PCR) Negative (Negative) SARS-CoV-2 RNA (RT-PCR) Negative (Negative) Discharge Plan Discharge Clinical Impression: Acute viral syndrome, Dehydration, Headache Patient Disposition: Home Condition: Stable Instructions: Antibiotic Form, Viral Syndrome (ED) Additional Instructions: You were seen emergency department for headaches body aches and low-grade fevers. It is likely that you have a viral syndrome. Please use Tylenol for headaches and drink plenty of fluids. Please follow-up with your primary care physician in next 3-5 days for re-evaluation. If you feel your condition is getting worse please return to the emergency department for re-evaluation. Patient Language: Azeri Prescriptions: No Action dicyclomine 10 mg Capsule 10 mg PO TID PRN (Reason: Abdominal Discomfort) trazodone 50 mg Tablet 50 mg PO DAILY 30 Days Qty: 30 0RF pantoprazole 20 mg tablet,delayed release (DR/EC) 20 mg PO DAILY 30 Days Qty: 30 0RF furosemide 40 mg tablet 40 mg PO DAILY ferrous sulfate 325 mg (65 mg iron) Tablet 65 mg PO DAILY buspirone 10 mg tablet 10 mg PO DAILY hydroxyzine HCl 25 mg tablet 25 mg PO DAILY Follow-up/Referrals: Bull Cardenas MD [Primary Care Provider, Hospitalist]
--- NOTE | 2025-05-12 09:40 | ECG_ITS ---
Test Date: 2025-05-12 09:49:52 Measurements Intervals [place] Rate: 59 P: 58 AL: 200 QRS: 55 QRSD: 88 T: 42 QT: 367 QTc: 365 Interpretive Statements SINUS BRADYCARDIA BASELINE ARTIFACT- I, II, III, AVR, AVL, AVF, V1-V6 BORDERLINE ECG No previous ECG available for comparison Electronically Signed On 05-12-2025 15:44:53 CDT by Arthur Ching D.O.
[2025-05-12] MEDS: PROCHLORPERAZINE EDISYLATE 10 MG/2 ML VIAL IM (09:47)
[2025-05-12 09:59] LABS: Alanine Aminotransferase 18 U/L (6-35); Albumin Level 3.8 g/dL (3.5-5.1); Alkaline Phosphatase 75 U/L (38-126); Anion Gap 10 mmol/L (4-12); Aspartate Amino Transferase 29 U/L (14-36); Bilirubin,Total 0.4 mg/dL (0.2-1.3); Blood Urea Nitrogen 42 mg/dL (7-17); Calcium 9.0 mg/dL (8.4-10.2); Carbon Dioxide 29 mmol/L (22-30); Chloride 101 mmol/L (98-107); Estimated CRCL calculation 27 ml/min; Estimated Glomerular Filt Rate 35; Glucose 105 mg/dL (65-110); Potassium 3.2 mmol/L (3.4-5.0); Sodium 140 mmol/L (137-145); Total Protein 7.8 g/dL (6.3-8.2)
[2025-05-12 12:07] VITALS: BP 98/75; PULSE 52; RESP 16; O2SAT 98
== END 2025-05-12 12:10 | disposition home or self-care (01) ==
PROVIDERS: Emergency Provider Emergency Medicine; PCP Internal Medicine
DX: B34.9 Viral infection, unspecified (principal); E86.0 Dehydration; R51.9 Headache, unspecified; Z11.52 Encounter for screening for COVID-19; N18.30 Chronic kidney disease, stage 3 unspecified; J43.9 Emphysema, unspecified; K21.9 Gastro-esophageal reflux disease without esophagitis; E55.9 Vitamin D deficiency, unspecified; D50.9 Iron deficiency anemia, unspecified; F41.9 Anxiety disorder, unspecified; F31.9 Bipolar disorder, unspecified; F17.290 Nicotine dependence, other tobacco product, uncomplicated; Z79.899 Other long term (current) drug therapy; R00.1 Bradycardia, unspecified
CPT/HCPCS: 36415; 70450; 71045; 80053; 85025; 85055; 87637; 93005; 96361; 96372; 96374; 96375; 99284; A9270; J0780; J1200; J1885; J7030

== ENCOUNTER 2025-06-18 12:32 | Outpatient (CLI) | payer MEDICARE, SELFPAY ==
--- NOTE | ~2025-06-18 | XR_ITS ---
EXAMINATION: XR hip LT min 2V, 06/18/2025 12:51 DEVELOPMENT TECHNOLOGIST HISTORY: hip pain, no recent injury, limping noted COMPARISON: No comparisons available. Findings: Fixation of the femoral neck, no acute fracture is identified. Moderate degenerative changes. Soft tissues unremarkable. Impression: No acute fracture or malalignment. Reviewed, dictated and finalized at location P. LOPMENT TECHNOLOGIST Impression: No acute fracture or malalignment.
== END 2025-06-18 12:33 | disposition home or self-care (01) ==
PROVIDERS: PCP Internal Medicine; Visit Provider Internal Medicine
DX: M24.652 Ankylosis, left hip (principal); M16.12 Unilateral primary osteoarthritis, left hip; M54.32 Sciatica, left side
CPT/HCPCS: 73502

== ENCOUNTER 2025-06-23 01:32 | Emergency (ER) | payer MEDICARE, SELFPAY ==
--- NOTE | ~2025-06-23 | XR_ITS ---
Examination: XR chest 1V portable Clinical History: cough Comparison: 05/12/2025 Technique: Portable AP Findings: Heart size normal. Mildly increased interstitial markings. Emphysema. Scattered scarring. No acute bony abnormality. Breast implant capsular calcifications. IMPRESSION: 1. Mild interstitial pulmonary edema and/or pneumonitis possible. Reviewed, dictated and finalized at location [employer]
[2025-06-23 01:33] VITALS: BP 138/81; PULSE 95; RESP 20; TEMP 36.9; O2SAT 94
[2025-06-23 01:43] VITALS: O2SAT 93
--- OUTSIDE RECORDS SUMMARY | 2025-06-23 01:52 | XMS_ITS | Encounter Summary ---
Author Organization [facility] Address [address] [place] [address] Phone Care Team Providers Care Community Midwife Name Role Phone Bull Cardenas MD Primary Care Provider [phone] Encounter Details Date Type Department Care Team [...] on file Legal Sex Female 2:[address]IVER Gender Identity Not on file Sexual Orientation [...] on filedocumented in this encounter Care Teams Community Midwife Relationship Specialty Start Date End Date Bull Cardenas MD [address] [facility] [place] [place] [address] PCP - General Internal Medicine 11/17/22 documented as of this encounter
--- OUTSIDE RECORDS SUMMARY | 2025-06-23 01:52 | XMS_ITS | Clinical Summary ---
Author Organization [facility] Address [address] [place] [address] Care Team Providers Care Research Attorney Name Role Phone Unavailable Primary Care Provider Unavailabl e Source Comments [facility],non-owned Affiliates and Associated Physician Practices is amultiple site organization consisting of ambulatory clinics and hospital sitesin [place], [place], [place] and [place]. This disclosure is being madepursuant to the Care Everywhere program and may not contain all information available regarding this patient. Last updated 18.[facility] Allergies Active Allergy Reactions Criticality Noted Date [...] 50+ (1 of 2 - PCV) 1978 Cervical Cancer Screening 1980 PAP SMEAR 1980 PAP with HPV 1989 LUNG CANCER SCREENING 2009 Respiratory Syncytial Virus (RSV) Vaccine Pt: or over 60 yrs (1 - Risk 50-74 years 1-dose series) 2009 ZOSTER VACCINE (1 of 2) 2009 LIPID TESTING 01/24/2024 01/23/2019 DEPRESSION SCREENING 08/02/2024 MEDICARE AWV CALENDAR YEAR 2024 COVID-19 VACCINE (1 - 2024-2 6 season) 2025 INFLUENZA VACCINE (#1) 2025 HEPATITIS [...] (ABNORMAL) LIPID PROFILE (01/23/2019 5:59 AM CDT) Cholesterol 73 <200 mg/dL 01/23/2019 6:53 AM [facility] Triglycerides 21 <150 mg/dL 01/23/2019 6:53 AM [facility] HDL Cholesterol 47 >40 mg/dL 9 6:53 AM T [facility] Chol HDL Ratio 1.6 1.0 - 6.0 01/23/2019 6:53 AM [facility] LDL Calculated 22(L) 65 - 130 mg/dL 01/23/2019 6:53 AM [facility] VLDL Calculated 4(L) 10 - 40 mg/dL 01/23/2019 6:53 AM [facility] Blood BLOOD SPECIMEN / Unknown Lab Venipuncture / Unknown 01/23/2019 5:59 AM CDT 01/23/2019 6:06 AM T [facility] - 01/23/2019 6:53 AM T Lipid Profile Comment: CHOLESTEROL LEVEL..................CLINICAL INTERPRETATION LESS [...] 2X AVERAGE.................. 9.5 ...................... 7.0 3X AVERAGE...................>23........................>11 us Hema Montoya MD LAB - CHEMISTRY ORDERABLES Final Result Performing Organization Address City/State/[facility] Co de Phone Number [facility] [address] from Last 3 Months or Most Recently Relevant to Health Maintenance Insurance [place] MEDICARE AETNA MEDICARE ADV Member Subscriber Plan / Payer (Ef fective 2018-Present) Name:Panda Brysonen Relation to Subscriber:Self Name:Jesse Bryson Payer ID:Not on file Type:Medicare-Managed Care Address: [address] [employer] Member Subscriber Plan / Payer (Ef fective for All Dates) Name:Jesse Bryson Relation to Subscriber:Self Name:Jesse Bryson Payer ID:Not on file Group ID:Not on file Type:PPO Address: [place] [phone] Advance Directives * Full Code (Latest Code Status on File) Date Activated Date Inactivated Comments 01/19/2019 9:44 AM 01/25/2019 1:08 PM * Full Code Date Activated Date Inactivated Comments 01/18/2019 8:19 PM 01/19/2019 9:44 AM
--- OUTSIDE RECORDS SUMMARY | 2025-06-23 01:52 | XMS_ITS | Clinical Summary ---
Author Organization [facility] Address [address] [place] [address] Care Team Providers Care Printed Circuit Board Panels Developer Name Role Phone Bull Cardenas MD Primary Care Provider [phone] Allergies Active Allergy Reactions Criticality Noted Date [...] 8 tablet 3 4 06/21/20 25 Active Problems Problem Noted Date Diagnosed Date [...] on file Legal Sex Female 2:01 AM CONTACT ASSEMBLER Gender Identity Not on file Sexual Orientation Not on file Obstetrics History Para Term AB IAB SAB Ectopic Multiple Livin g Live Births 1 1 1 Date Outcome GA Total Labor Labor/2nd/3rd Weight Sex Type Anes PTL Mirian A1 A5 Name Clin Term Last Filed Vital Signs Vital Sign Reading Time Taken Comments Blood Pressure 129/79 06/21/2024 11:05 AM CONTACT ASSEMBLER Pulse 72 06/21/2024 11:05 AM CONTACT ASSEMBLER Temperature 36.1 C (97 F) 06/21/2024 11:05 AM CONTACT ASSEMBLER Respiratory Rate 16 06/21/2024 11:05 AM CONTACT ASSEMBLER Oxygen Saturation 95% 06/21/2024 11:05 AM CONTACT ASSEMBLER Inhaled Oxygen Concentration - - Weight 54 kg (119 lb) 06/21/2024 11:05 AM CONTACT ASSEMBLER Height 165.1 cm (5' 5) 06/21/2024 11:05 AM CONTACT ASSEMBLER Body Mass Index 19.8 06/21/2024 11:05 AM CONTACT ASSEMBLER Plan of Treatment Health Maintenance Due Date [...] stairs Contact your local community or senior sproul for information on exercise, fall prevention programs, or options for improving home safety. Procedures Procedure Name Priority Date/Time Associated Diagnosis Comments DEXA TBS AXIAL SKELETON BONE DENSITY 1 OR MORE SITES Schedule Routine, Read Routine (OP Routine) 06/16/2024 9:10 AM CONTACT ASSEMBLER Age-related osteoporosis without current pathological fracture SCREENING MAMMOGRAM BILATERAL W MAXX W IMPLANTS Schedule Routine, Read Routine (OP Routine) 11/23/2022 12:17 PM CDT Encounter for screening mammogram for malignant neoplasm of breast from Last 3 Months or Most Recently Relevant to Health Maintenance Results * Dexa TBS Axial Skeleton Bone Density 1 or more sites (06/16/2024 9:10 AM CONTACT ASSEMBLER) Anatomical Region Laterality Modality Wrist, Body N/A Radiographic Tanna ging Narrative 06/19/2024 8:28 AM CONTACT ASSEMBLER Patient Name: Eboni Alfred Date of : 1960 Date of scan: 06/16/2024 Bone mineral density was performed on a [employer] Discovery Densitometer. Based on machine cross-calibration and [...] by the International Society of Clinical Densitometry. [id number] Charity Alfred MD [facility] [place] DXA PROCEDURES Final R esult * Screening [...] calcified outer border bilaterally. Bull Cardenas MD [facility] [place] MAMMO PROCEDURES Final Re sult from Last 3 Months or Most Recently Relevant to Health Maintenance Insurance [facility] MEDIC[facility] Address: [address] [address] [place] [address] [employer] [facility] MEDICARE ADVANTAGE [facility] Address: [address] [address] [place] [address] Care Teams Printed Circuit Board Panels Developer Relationship Specialty Start Date End Date Bull Cardenas MD [address] [place] [address] [place] [address] PCP - General Internal Medicine 11/17/22
--- NOTE | 2025-06-23 01:57 | ED.URI ---
HPI - URI/Sore Throat General Chief Complaint: Upper Respiratory Infection Stated Complaint: cough Time Seen by Provider: 06/23/25 01:39 History of Present Illness HPI Narrative: 64-year-old female with history of chronic opiate use and tobacco abuse presenting to the emergency department today with a cough. Patient states she has been having coughing fits throughout the day today with 1 episode of posttussive emesis. no chest pain or difficulty in breathing and she just states that she is having coughing frequently today. No nausea or vomiting presently. No sick contacts. Does endorse still smoking and vaping throughout the day. Cough is nonproductive and dry. Has not tried any remedies. Called EMS to bring her to the ER. Denies any fever chills or recent injuries or illnesses. Related Data Home Medications ?Medication ?Instructions ?Recorded ?Confirmed ?Last Taken ?Type dicyclomine 10 mg capsule 10 mg PO TID PRN Abdominal 09/07/20 03/29/23 Unknown History Discomfort buspirone 10 mg tablet 10 mg PO DAILY 03/29/23 03/29/23 Unknown History ferrous sulfate 325 mg (65 mg 65 mg PO DAILY 03/29/23 03/29/23 Unknown History iron) tablet furosemide 40 mg tablet 40 mg PO DAILY 03/29/23 03/29/23 Unknown History hydroxyzine HCl 25 mg tablet 25 mg PO DAILY 03/29/23 03/29/23 Unknown History Allergies Allergy/AdvReac Type Severity Reaction Status Date / Time bacitracin (From Neosporin Allergy Rash Verified 06/23/25 01:42 ([id number])) Bleach (Sodium Hypochlorite) Allergy Rash Verified 06/23/25 01:42 latex Allergy Rash Verified 06/23/25 01:42 neomycin (From Neosporin Allergy Rash Verified 06/23/25 01:42 ([id number])) polymyxin B (From Neosporin Allergy Rash Verified 06/23/25 01:42 ([id number])) Review of Systems Review of Systems: As reviewed above in HPI All systems reviewed & are unremarkable except as noted in HPI and below PMFSH Past Medical History Medical History Colon cancer screening CKD (chronic kidney disease) III Esophageal varices 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 Tobacco abuse Chronic anemia COPD with emphysema Closed right hip fracture (~06/2019) Presented with subacute fracture, treated nonsurgically. GI bleed (~01/2019) Hospitalized at [facility]. Patient reports upper GI bleed, unsure whether it was due to an ulcer or varices however she denies history of cirrhosis. Esophageal stricture Status post dilatation. History of self mutilation Vitiligo Closed left hip fracture Status post ORIF. Gastroesophageal reflux disease Vitamin D deficiency Microcytic anemia Cellulitis of left lower leg (~06/2019) Chronic back pain Anxiety Depression Borderline personality disorder Bipolar disorder Surgical History Surgical History History of hip surgery Left hip fracture ORIF. History of tonsillectomy History of breast augmentation Family History Family History Mother Family history of diabetes mellitus in first degree relative Family history of malignant neoplasm of brain Diabetes mellitus Hypertension Cerebrovascular accident Sibling Family history of malignant neoplasm Family history of diabetes mellitus in first degree relative Diabetes mellitus Father Family history of malignant neoplasm of bone Other Family history of alcoholism Family history of mental disorder Social History Social History Social History: Surrogate decision maker: Aki Paul, friend. Code status: Full code. Smoking packs per day: 1 Smoking cigarettes per day: 20.0 Years smoked: 40 Smoking pack-years: 40.00 Smoking status: Current every day smoker Tobacco type: e-cigarettes/vaping Second hand tobacco smoke exposure: No Alcohol intake: former Alcohol use details: History of alcoholism, has reportedly abstained for several years. Substance use: former Substance use type: crack/cocaine, heroin and opiates Other substance usage details: clean for over a year Last use: 08/02/19 Additional living arrangements comments: She lives in [place] with 2 roommates. Additional occupation/education comments: On disability. Gender identity (if verbalized by the patient): Female Spiritual care concerns: No Agree to blood products: Yes Exam Narrative: GENERAL: [Well-appearing, well-nourished, and in no acute distress.] HEAD: [Normocephalic, atraumatic.] EYES: [PERRLA and EOMI.] ENT: Nares clear, no rhinorrhea or epistaxis. Mucous membranes moist. NECK: Supple. CHEST: Clear to auscultation without any wheezing, rhonchi, rales. No respiratory distress. Coughing throughout the exam but dry. HEART: [Regular rate and rhythm]. No murmur heard. [Normal peripheral pulses.] ABDOMEN: [Soft, nondistended], [nontender], [No rigidity or guarding] EXTREMITIES: Normal range of motion. [No edema.] SKIN: Warm, dry, no rash. NEURO: [No focal deficits]. Alert and oriented [x3.] PSYCH: [Normal mood and affect.] Course Vital Signs Vital signs: Vital Signs Temperature 36.9 C 06/23/25 01:33 Pulse Rate 95 06/23/25 01:33 Respiratory Rate 20 06/23/25 01:33 Blood Pressure 138/81 06/23/25 01:33 Pulse Oximetry 94 06/23/25 01:33 Oxygen Delivery Room Air 06/23/25 01:33 Temperature 36.9 C 06/23/25 01:33 Pulse Rate 81 06/23/25 03:11 Respiratory Rate 20 06/23/25 03:11 Blood Pressure 122/78 06/23/25 03:11 Pulse Oximetry 96 06/23/25 03:11 Oxygen Delivery Room Air 06/23/25 01:43 MDM - URI/Sore Throat MDM Narrative Medical decision making narrative: 64-year-old female with history of chronic opiate use and tobacco abuse presenting to the emergency department today with a cough. Patient states she has been having coughing fits throughout the day today with 1 episode of posttussive emesis. no chest pain or difficulty in breathing and she just states that she is having coughing frequently today. No nausea or vomiting presently. No sick contacts. Does endorse still smoking and vaping throughout the day. Cough is nonproductive and dry. Has not tried any remedies. Called EMS to bring her to the ER. Denies any fever chills or recent injuries or illnesses. Patient is coughing throughout the examination but nonproductive and overall well-appearing. Able to speak in full sentences without any difficulty. No wheezing or rhonchi or breath sound asymmetry. Saturating well on room air without any tachycardia, tachypnea fever or hypoxemia. X-ray obtained and viral swabs ordered. She was given nebulized lidocaine for her coughing fit and loratadine and pseudoephedrine. Will be discharged home with return precautions and follow-up instructions after completion of workup. X-ray independently reviewed and appears unremarkable compared to prior baseline. Does have some scoliosis evident. No consolidations or obvious pneumonia. Viral swabs negative. Patient had symptomatic improvement and no longer coughing after nebulized lidocaine and meds. Safe for discharge home at this time. Lab Data Attestation: I reviewed the patient's lab results. Labs: Lab Results 06/23/25 Range/Units 01:49 Influenza A (RT-PCR) Negative (Negative) Influenza B (RT-PCR) Negative (Negative) RSV (RT-PCR) Negative (Negative) SARS-CoV-2 RNA (RT-PCR) Negative (Negative) Discharge Plan Discharge Clinical Impression: Acute cough Patient Disposition: Home Condition: Stable Instructions: Antibiotic Form, Acute Cough (ED) Additional Instructions: Take [id number] cough and cold medication for symptom control. Follow-up with regular doctors. Return with any emergent concerns. Refrain from smoking. Patient Language: [place] Island[place] Prescriptions: New benzonatate 200 mg capsule 200 mg PO TID PRN (Reason: cough) Qty: 20 0RF No Action dicyclomine 10 mg Capsule 10 mg PO TID PRN (Reason: Abdominal Discomfort) trazodone 50 mg Tablet 50 mg PO DAILY 30 Days Qty: 30 0RF pantoprazole 20 mg tablet,delayed release (DR/EC) 20 mg PO DAILY 30 Days Qty: 30 0RF furosemide 40 mg tablet 40 mg PO DAILY ferrous sulfate 325 mg (65 mg iron) Tablet 65 mg PO DAILY buspirone 10 mg tablet 10 mg PO DAILY hydroxyzine HCl 25 mg tablet 25 mg PO DAILY Follow-up/Referrals: Bull Cardenas MD [Primary Care Provider, Hospitalist] Time of Disposition: 02:34
[2025-06-23 01:59] VITALS: PULSE 82; RESP 20
[2025-06-23] MEDS: LIDOCAINE 4% PF INJ 5 ML AMP 10 ML NEBULIZE (01:59)
[2025-06-23] MEDS: PSEUDOEPHEDRINE HCL 30 MG TABLET PO (02:29)
[2025-06-23] MEDS: LORATADINE 10 MG TABLET PO (02:29)
[2025-06-23 02:35] VITALS: BP 116/74; PULSE 72; RESP 20; O2SAT 99
[2025-06-23 02:39] LABS: Influenza A QL RT-PCR Negative (Negative); Influenza B QL RT-PCR Negative (Negative); RSV RNA, RT-PCR Negative (Negative); SARS-CoV-2 RNA PCR Negative (Negative)
[2025-06-23 03:05] VITALS: PULSE 78; RESP 18
[2025-06-23 03:11] VITALS: BP 122/78; PULSE 81; RESP 20; O2SAT 96
== END 2025-06-23 03:12 | disposition home or self-care (01) ==
PROVIDERS: Emergency Provider Student in an Organized Health Care Education/Training Program; PCP Internal Medicine
DX: R05.1 Acute cough (principal); Z20.822 Contact with and (suspected) exposure to COVID-19; N18.30 Chronic kidney disease, stage 3 unspecified; J43.9 Emphysema, unspecified; E55.9 Vitamin D deficiency, unspecified; D50.9 Iron deficiency anemia, unspecified; K21.9 Gastro-esophageal reflux disease without esophagitis; F41.9 Anxiety disorder, unspecified; F31.9 Bipolar disorder, unspecified; F60.3 Borderline personality disorder; F17.290 Nicotine dependence, other tobacco product, uncomplicated; F17.210 Nicotine dependence, cigarettes, uncomplicated; Z79.899 Other long term (current) drug therapy
CPT/HCPCS: 71045; 87637; 94640; 99283; A9270; J2003

== ENCOUNTER 2025-07-10 14:08 | Outpatient (CLI) | payer MEDICARE, SELFPAY ==
--- NOTE | ~2025-07-10 | MR_ITS ---
EXAM/PROCEDURE: MR lumbar spine wo con HISTORY: scaiatica of left side COMPARISON: None available. TECHNIQUE: Multiplanar noncontrast enhanced lumbar spine MRI. FINDINGS: Advanced degenerative changes involving disc spaces and posterior elements throughout the lumbar spine. There is moderately severe sigmoidal scoliotic curvature of the thoracolumbar spine with approximately 20 to 25 degrees of levorotatory or levoscoliotic curvature of the lumbar spine. The conus tapers normally at L1. Visualized portion of the spinal cord unremarkable. Modic type I endplate changes are present at several levels. No gross acute or aggressive bony or soft tissue process seen. Level specific findings as follows: T12-L1: No spinal canal stenosis or discrete disc protrusion. Mild to moderate bilateral neural foraminal narrowing. L1-2: Moderately severe facet hyperostosis with thickening of ligamentum flavum and posterior spondylosis with no spinal canal stenosis or discrete disc protrusion. With the levo scoliotic or rotatory curvature, there appears to moderate possibly severe right-sided neural foraminal narrowing. Mild to m oderate left-sided neural foraminal narrowing. L2-3: No spinal canal stenosis or discrete disc protrusion. Stenosis in the right lateral recess and at least moderately severe right-sided neural foraminal narrowing present. Mild to moderate left-sided neural foraminal narrowing. No stenosis in the left lateral recess. L3-4: Similar changes as at L2-3 with stenosis in the right lateral recess, and at least moderately severe right-sided neural foraminal narrowing. Mild to moderate left-sided neural foraminal narrowing. No stenosis in the left lateral recess. No spinal canal stenosis or discrete disc protrusion. L4-5: Moderate to large left paracentral disc protrusion resulting in significant stenosis in the left lateral recess as well as stenosis of the spinal canal as seen on image 25 series 6. Moderately severe bilateral neural foraminal narrowing left worse than right. L5-S1: No spinal canal stenosis or discrete disc protrusion. Moderately severe bilateral neural foraminal narrowing, left worse than right. IMPRESSION: Multilevel degenerative changes involving disc spaces and posterior elements with lateral recesses and neural foramen on the right side intubated by levoscoliotic curvature. There is also moderate to large left paracentral disc protrusion at L4-5. See level specific comments as detailed above. Reviewed, dictated and finalized at location [employer]. [employer]ST[employer]ATION MANA[employer] IMPRESSION: Multilevel degenerative changes involving disc spaces and posterior elements wi th lateral recesses and neural foramen on the right side intubated by levoscoli otic curvature. There is also moderate to large left paracentral disc protrusio n at L4-5. See level specific comments as detailed above.
== END 2025-07-10 14:09 | disposition home or self-care (01) ==
PROVIDERS: PCP Internal Medicine; Visit Provider Internal Medicine
DX: M47.896 Other spondylosis, lumbar region (principal); M54.32 Sciatica, left side; M51.26 Other intervertebral disc displacement, lumbar region; M51.27 Other intervertebral disc displacement, lumbosacral region
CPT/HCPCS: 72148